=== PATIENT | male | born 1975 | race Caucasian/White ===

== ENCOUNTER 2018-04-30 17:19 | Inpatient (IN) ==
[2018-04-30] MEDS ORDERED: ASPIRIN PO ONE (18:30)
[2018-04-30] MEDS ORDERED: NS 1000 ML 1,000 ML ONE (18:30)
--- NOTE | 2018-04-30 18:35 | DR.URIAD ---
HPI - Time Seen Time seen: 18:30 - PCP Primary Care Physician: NFD - Complaint Chief Complaint Doctors Comments: Patient is complaining of SOB, cold, cough, dry mouth and problems swallowing for the past 7 days. Patient states he has been drinking a lot of water and seems not to be able to get full. States he has been having problems with tightness in the center of his chest for the past 2-4 days getting progressively worst today. states he do not have a local doctor. He smokes one pack cigarettes daily but denies alcohol usage. States he smoke marijuania last time week ago. Denies history of diabetes. He denies dysuria or hematuria. Chief Complaint:: " LEN BEEN HAVING SOB OF BREATH AND CHEST HURTS FOR THE LAST 2 DAYS. I HAVE A C/C/C LAST WEEK AND TOOK A Z PACK BUT NOW IT JUST SEEMS WORST EVERY TIME I TAKE IN A DEEP BREATH IT HURTS AND I HAVENT BEEN ABLE TO EAT THE LAST FEW DAYS." - Reviewed Nurses Notes Reviewed: Yes - Source History Provided: Patient - Mode of Arrival Mode of Arrival: Ambulatory - Timing Onset of Chief Complaint: 04/28/18 - Context Recent Treated Infections: None History of Respiratory: None - Quality Quality of Cough: Nonproductive Rhinorrhea: Clear Shortness of Breath: Mild - Associated Signs and Symptoms Other Signs and Symptoms: Cough, Decreased Oral Intake, Decreased Urination, Increased Oral Intake, Nasal Symptoms, Shortness of Breath PMH - PMH Past Medical History: No Past Surgical History: Yes Surgical History: Ortho Surgery - Family History History of Family Medical Conditions: Yes Family Medical History: Cancer, Heart Failure - Social History Alcohol Use: None Do you use any recreational Drugs:: No Lives Where: Home - infectious screening Have you traveled outside the country in the last 6 months?: No ROS - Review of Systems Constitutional: No Symptoms Reported, Loss of Appetite Eyes: No Symptoms Reported ENTM: No Symptoms Reported, Nose Congestion Respiratoy: No Symptoms Reported, Non-Productive Cough Cardiovascular: No Symptoms Reported Gastrointestinal/Abdominal: No Symptoms Reported Genitourinary: No Symptoms Reported Neurological: No Symptoms Reported Musculoskeletal: No Symptoms Reported Integumentary: No Symptoms Reported Hematologic/Lymphatic: No Symptoms Reported Endocrine: No Symptoms Reported Psychiatric: No Symptoms Reported PE - General Limitations: No Limitations General Appearance: Alert, In Distress (moderate) - Head Head Exam: Normal Inspection, Atraumatic, Normocephalic - Eyes Eye exam: Normal Appearance, PERRL, EOMI. negative: Scleral Icterus, Conjunctival Injection, Nystagmus, Miosis, Mydrasis, Periorbital Swelling, Periorbital Tenderness, Other - ENT ENT Exam: Normal Exam, Normal Oropharynx, Normal External Ear Exam, Mucous Membranes Moist, TM's Normal Bilaterally External Ear Exam: Normal External Inspection TM/Canal Exam: Bilateral Normal Nose Exam: Normal Nose Exam Nasal Speculum Exam: Bilateral Normal Mouth Exam: Normal Inspection Throat Exam: Normal Inspection - Neck Neck Exam: Normal Inspection, Full ROM, Trachea Midline. negative: Tenderness, Meningismus, Lymphadenopathy, Thyromegaly, Other - Chest Chest Inspection: Normal Inspection, Symmetric Chest Wall Rise - Respiratory Respiratory Exam: Normal Lung Sounds Bilat Respiratory Exam: Bilateral Clear to Auscultation - Cardiovascular Cardiovascular Exam: Regular Rate, Normal Rhythm, Normal Heart Sounds - Abdominal Exam Abdominal Exam: Normal Inspection, Normal Bowel Sounds, Soft. negative: Distention, Tenderness, Guarding, Rebound, Rigidity, Dimnished Bowel Sounds, Hyperactive Bowel Sounds, Hypoactive Bowel Sounds, Organomegaly, Trauma, Incision, Ascites, Mass, Bruit, Pulsatile Mass, Hernia, Other Abdominal Tenderness: negative: RUQ, RLQ, LUQ, LLQ, Epigastrium, Suprapubic, Diffuse, Mild, Moderate, Severe, Other - Extremeties Extremities Exam: Normal Inspection, Full ROM, Normal Capillary Refill. negative: Tenderness, Edema, Joint Swelling, Calf Tenderness, Other - Back Back Exam: Normal Inspection, Full ROM - Neurologic Neurological Exam: Alert, Oriented X3, CN II-XII Intact, Reflexes Normal. negative: Normal Gait (gait not tested) - Psychiatric Psychiatric Exam: Normal Affect, Normal Mood - Skin Skin Exam: Warm, Dry, Intact, Normal Color (decreased skin turgor; ketotic breath) - Vital Signs Vitals: Temperature 97.4 F Pulse Rate [Apical] 108 Pulse Rate 80 Respiratory Rate 22 Blood Pressure [Left Arm] 121/93 Blood Pressure 145/99 O2 Sat by Pulse Oximetry 99 Course - Reevaluation 1st: Improved - Consultation Called: 08:14 Call Returned: 08:14 (Dr. Cordero to admit) - Education/Counseling Education/Counseling: Patient, Family Educated On: Treatment, Diagnosis, Needs for Follow Up ROR - Labs Reviewed Laboratory Results Reviewed?: Yes (All labs and x-ray results reviewed and discussed with patient) Result Diagrams: 05/01/18 05:33 05/01/18 05:33 - Labs Reviewed Laboratory: WBC 11.2 X10^3/uL (3.6-10.0) H 04/30/18 18:37 RBC 5.50 X10^6/uL (4.7-6.0) 04/30/18 18:37 Hgb 16.2 g/dL (13.5-18.0) 04/30/18 18:37 Hct 48.3 % (42.0-54.0) 04/30/18 18:37 MCV 87.8 fL (80.0-100.0) 04/30/18 18:37 MCH 29.4 pg (27.0-34.0) 04/30/18 18:37 MCHC 33.5 g/dL (33.0-35.0) 04/30/18 18:37 RDW 13.7 % (11.6-16.5) 04/30/18 18:37 Plt Count 377 X10^3/uL (150.0-450.0) 04/30/18 18:37 MPV 9.5 fL (7.4-11.0) 04/30/18 18:37 Neut % (Auto) 75.9 % (42.0-75.0) H 04/30/18 18:37 Lymph % (Auto) 15.1 % (21.0-51.0) L 04/30/18 18:37 [place] % (Auto) 6.9 % (0.0-13.0) 04/30/18 18:37 Eos % (Auto) 0.7 % (0.9-2.9) L 04/30/18 18:37 Baso % (Auto) 1.4 % (0.2-1.0) H 04/30/18 18:37 Neut # (Auto) 8.5 x10^3/uL (2.2-4.8) H 04/30/18 18:37 Lymph # (Auto) 1.7 X10^3/uL (1.3-2.9) 04/30/18 18:37 [place] # (Auto) 0.8 x10^3/uL (0.3-0.8) 04/30/18 18:37 Eos # (Auto) 0.1 x10^3/uL (0.0-0.2) 04/30/18 18:37 Baso # (Auto) 0.2 X10^3/uL (0.0-0.1) H 04/30/18 18:37 Absolute Nucleated RBC 0.0 /100WBC 04/30/18 18:37 INR Target Range - 04/30/18 18:37 INR 1.05 (0.8-1.3) 04/30/18 18:37 APTT 24.8 SECONDS (22.9-36.5) 04/30/18 18:37 PTT Comment - 04/30/18 18:37 D-Dimer 462 ng/mL (0-400) H* 04/30/18 18:37 Sample Site Rbra 04/30/18 21:21 ABG pH 7.310 (7.35-7.45) L 04/30/18 21:21 ABG pCO2 27.0 mmHg (35.0-45.0) L 04/30/18 21:21 ABG pO2 91.0 mmHg (80.0-100.0) 04/30/18 21:21 ABG HCO3 13.6 mmol/L (22-26) L* 04/30/18 21:21 ABG O2 Saturation 96.0 % (90-100) 04/30/18 21:21 ABG Base Excess -11.1 mmol/L (-2.0-2.0) L 04/30/18 21:21 Freddy Test Na 04/30/18 21:21 A-a Gradient 25.0 mmHg 04/30/18 21:21 FiO2 21.0 04/30/18 21:21 Blood Gas Comments Norma abg well-mtf 04/30/18 21:21 Sodium 133 mmol/L (136-145) L 04/30/18 18:37 Corrected Sodium 142 mmol/L (136-145) 04/30/18 18:37 Potassium 5.0 mmol/L (3.5-5.1) 04/30/18 18:37 Chloride 95 mmol/L (98-107) L 04/30/18 18:37 Carbon Dioxide 17.7 mmol/L (21-32) L 04/30/18 18:37 BUN 15 mg/dL (7-18) 04/30/18 18:37 Creatinine 1.48 mg/dL (0.70-1.30) H 04/30/18 18:37 Est GFR (MDRD) Af Amer > 60 (>60) 04/30/18 18:37 Est GFR (MDRD) Non-Af 56 (>60) L 04/30/18 18:37 Glucose 471 mg/dL (65-99) H 04/30/18 18:37 POC Glucose (mg/dL) 408 mg/dL (65-99) H* 04/30/18 22:03 Calcium 10.6 mg/dL (8.5-10.1) H 04/30/18 18:37 Corrected Calcium TNP 04/30/18 18:37 Magnesium 1.8 mg/dL (1.7-2.9) 04/30/18 18:37 Total Bilirubin 0.60 mg/dL (0.2-1.0) 04/30/18 18:37 AST 13 Units/L (15-37) L 04/30/18 18:37 ALT 38 Units/L (12-78) 04/30/18 18:37 Alkaline Phosphatase 153 Units/L (46-116) H 04/30/18 18:37 Creatine Kinase 73 Units/L (39-308) 04/30/18 18:37 CK-MB (CK-2) 1.0 ng/mL (0-4.0) 04/30/18 18:37 CK/CKMB % Calc 1.4 % (<4) 04/30/18 18:37 Troponin I < 0.02 ng/mL (0-1.5) 04/30/18 18:37 Total Protein 8.6 g/dL (6.4-8.2) H 04/30/18 18:37 Albumin 3.9 g/dL (3.4-5.0) 04/30/18 18:37 Globulin 4.7 g/dL (2.5-4.5) H 04/30/18 18:37 Albumin/Globulin Ratio 0.8 Ratio (1.1-2.1) L 04/30/18 18:37 Specimen Type Clean catch urine 04/30/18 18:50 Urine Color Pale yellow (YELLOW) 04/30/18 18:50 Urine Appearance Clear (CLEAR) 04/30/18 18:50 Urine pH 5.0 (5.0 - 8.0) 04/30/18 18:50 Ur Specific [place] 1.020 (1.000-1.030) 04/30/18 18:50 Urine Protein 2+ (NEGATIVE) 04/30/18 18:50 Urine Glucose (UA) 4+ (NEGATIVE) 04/30/18 18:50 Urine Ketones 4+ (NEGATIVE) 04/30/18 18:50 Urine Occult Blood 1+ (NEGATIVE) 04/30/18 18:50 Urine Nitrite Negative (NEGATIVE) 04/30/18 18:50 Urine Bilirubin Negative (NEGATIVE) 04/30/18 18:50 Urine Acetone Large (NEGATIVE) 04/30/18 18:50 Urine Urobilinogen Normal (NORMAL) 04/30/18 18:50 Ur Leukocyte Esterase Negative (NEGATIVE) 04/30/18 18:50 Urine RBC 3-5 /HPF (NONE SEEN) 04/30/18 18:50 Urine WBC 0-2 /HPF (NONE SEEN) 04/30/18 18:50 Ur Squamous Epith Cells Negative /HPF (NEGATIVE) 04/30/18 18:50 Urine Bacteria Negative /HPF (NEGATIVE) 04/30/18 18:50 Ur Culture Indicated? No/not indicated 04/30/18 18:50 - Diagnosis Discharge Problem: Diabetes mellitus, new onset, Metabolic acidosis due to diabetes mellitus, Dehydration, Chest pain - Discharge Plan Disposition: ADMITTED INPATIENT Condition: Stable
[2018-04-30] MEDS ORDERED: ASPIRIN ONE (18:42)
[2018-04-30 18:52] LABS: BASOPHILS # (AUTO) 0.2 X10^3/uL (0.0-0.1); BASOPHILS % (AUTO) 1.4 % (0.2-1.0); EOSINOPHILS # (AUTO) 0.1 x10^3/uL (0.0-0.2); EOSINOPHILS % (AUTO) 0.7 % (0.9-2.9); HEMATOCRIT 48.3 % (42.0-54.0); HEMOGLOBIN 16.2 g/dL (13.5-18.0); LYMPHOCYTES # (AUTO) 1.7 X10^3/uL (1.3-2.9); LYMPHOCYTES % (AUTO) 15.1 % (21.0-51.0); MEAN CORPUSCULAR HEMOGLOBIN 29.4 pg (27.0-34.0); MEAN CORPUSCULAR HGB CONC 33.5 g/dL (33.0-35.0); MEAN CORPUSCULAR VOLUME 87.8 fL (80.0-100.0); MEAN PLATELET VOLUME 9.5 fL (7.4-11.0); MONOCYTES # (AUTO) 0.8 x10^3/uL (0.3-0.8); MONOCYTES % (AUTO) 6.9 % (0.0-13.0); NEUTROPHILS # (AUTO) 8.5 x10^3/uL (2.2-4.8); NEUTROPHILS % (AUTO) 75.9 % (42.0-75.0); PLATELET COUNT 377 X10^3/uL (150.0-450.0); RED CELL DISTRIBUTION WIDTH 13.7 % (11.6-16.5); WHITE BLOOD COUNT 11.2 X10^3/uL (3.6-10.0)
--- NOTE | 2018-04-30 18:57 | RAD ---
Examination: Portable AP chest History: SOB Comparison reference: None Findings: Normal heart size with no evidence for acute pulmonary, mediastinal, hilar or pleural lesion. Impression: No active chest abnormality demonstrated. Reported By:
[2018-04-30] MEDS ORDERED: NS 1000 ML 1,000 ML IV SCH (19:00)
[2018-04-30 19:09] LABS: BLOOD UREA NITROGEN 15 mg/dL (7-18); CALCIUM 10.6 mg/dL (8.5-10.1); CARBON DIOXIDE 17.7 mmol/L (21-32); CHLORIDE 95 mmol/L (98-107); COR NA(FOR HYPERGLY) 142 mmol/L (136-145); CREATININE 1.48 mg/dL (0.70-1.30); SODIUM 133 mmol/L (136-145); TROPONIN I < 0.02 ng/mL (0-1.5); eGFR NON BLACK RACES 56 (>60)
[2018-04-30 19:13] LABS: ALANINE AMINOTRANSFERASE 38 Units/L (12-78); ALBUMIN 3.9 g/dL (3.4-5.0); ALKALINE PHOSPHATASE 153 Units/L (46-116); ASPARTATE AMINO TRANSFERASE 13 Units/L (15-37); CKMB % 1.4 % (<4); CREATINE KINASE 73 Units/L (39-308); MAGNESIUM 1.8 mg/dL (1.7-2.9); TOTAL PROTEIN 8.6 g/dL (6.4-8.2)
[2018-04-30 19:26] LABS: BILIRUBIN,URINE NEGATIVE (NEGATIVE); BLOOD/HEMOGLOBIN,URINE 1+ (NEGATIVE); GLUCOSE, URINE 4+ (NEGATIVE); KETONES,URINE 4+ (NEGATIVE); LEUKOCYTE ESTERASE ,URINE NEGATIVE (NEGATIVE); NITRITES,URINE NEGATIVE (NEGATIVE); PROTEIN,URINE 2+ (NEGATIVE); UROBILINOGEN,URINE NORMAL (NORMAL)
[2018-04-30 19:30] LABS: APPEARANCE,URINE CLEAR (CLEAR); COLOR,URINE PALE YELLOW (YELLOW)
[2018-04-30 19:44] LABS: BACTERIA,URINE NEGATIVE /HPF (NEGATIVE); SQUAMOUS EPITHELIAL CELL,UR NEGATIVE /HPF (NEGATIVE)
--- NOTE | 2018-04-30 20:41 | CT ---
CT ANGIOGRAPHY OF THE CHEST CLINICAL HISTORY: 42-year-old male with shortness of breath and chest pain for 2 days. COMPARISON: Chest radiograph this date. TECHNIQUE: CT angiogram of the chest was performed following the uncomplicated administration of 75 mL Omnipaque 350 intravenous contrast as per routine pulmonary embolus protocol. Coronal and Sagittal reformats provided. MIP reformats are submitted for review. FINDINGS: No pulmonary embolus is seen. There is no thoracic aortic dissection. The heart is normal in size and there is no pericardial effusion. Shotty nonspecific lymph nodes throughout the mediastinum. No axillary lymphadenopathy. Significant bullous emphysematous change throughout the upper lobes superimposed upon scattered paraseptal and centrilobular emphysematous change. No mass, nodule or consolidation. The trachea and mainstem bronchi are patent. There is no pleural effusion or pneumothorax. Imaged upper abdomen without acute abnormality. The arteriovascular structures are within normal limits. Soft tissues are normal. The osseous structures are intact without fracture or malalignment. IMPRESSION: 1. No pulmonary embolus. 2. Significant bullous, paraseptal and centrilobular emphysematous change of the lungs as described. Reported By:
[2018-04-30 21:23] LABS: ABG BASE EXCESS -11.1 mmol/L (-2.0-2.0)
[2018-04-30 21:24] LABS: ABG HCO3 13.6 mmol/L (22-26)
[2018-04-30] MEDS ORDERED: NS 1000 ML 1,000 ML IV ONE (21:55)
[2018-04-30] MEDS ORDERED: HumuLIN R IV STA (22:06)
[2018-04-30] MEDS ORDERED: HumuLIN R ONE (22:15)
[2018-04-30] MEDS ORDERED: HumuLIN R SUBCUT PRN (22:52)
[2018-04-30] MEDS: NS 1000 ML 1,000 ML IV SCH (23:57)
[2018-05-01 01:17] LABS: CKMB % 1.4 % (<4); CREATINE KINASE 74 Units/L (39-308); TROPONIN I < 0.02 ng/mL (0-1.5)
[2018-05-01] MEDS: HumuLIN R SC PRN ×4 (05:34→21:22)
[2018-05-01 05:54] LABS: BASOPHILS % (AUTO) 0.3 % (0.2-1.0); EOSINOPHILS # (AUTO) 0.4 x10^3/uL (0.0-0.2); EOSINOPHILS % (AUTO) 4.4 % (0.9-2.9); HEMATOCRIT 41.7 % (42.0-54.0); HEMOGLOBIN 14.1 g/dL (13.5-18.0); MEAN CORPUSCULAR HEMOGLOBIN 29.2 pg (27.0-34.0); MEAN CORPUSCULAR HGB CONC 33.9 g/dL (33.0-35.0); MEAN CORPUSCULAR VOLUME 86.1 fL (80.0-100.0); MEAN PLATELET VOLUME 9.3 fL (7.4-11.0); MONOCYTES # (AUTO) 0.7 x10^3/uL (0.3-0.8); MONOCYTES % (AUTO) 7.2 % (0.0-13.0); NEUTROPHILS # (AUTO) 6.2 x10^3/uL (2.2-4.8); NEUTROPHILS % (AUTO) 67.1 % (42.0-75.0); PLATELET COUNT 309 X10^3/uL (150.0-450.0); RED BLOOD COUNT 4.84 X10^6/uL (4.7-6.0); RED CELL DISTRIBUTION WIDTH 13.6 % (11.6-16.5); WHITE BLOOD COUNT 9.3 X10^3/uL (3.6-10.0)
[2018-05-01 06:07] LABS: ALANINE AMINOTRANSFERASE 29 Units/L (12-78); ALKALINE PHOSPHATASE 113 Units/L (46-116); ASPARTATE AMINO TRANSFERASE 14 Units/L (15-37); BLOOD UREA NITROGEN 12 mg/dL (7-18); CALCIUM 8.7 mg/dL (8.5-10.1); CARBON DIOXIDE 20.8 mmol/L (21-32); CHLORIDE 105 mmol/L (98-107); COR CA(FOR HYPOALB) 9.5 mg/dL (8.5-10.1); COR NA(FOR HYPERGLY) 141 mmol/L (136-145); CREATININE 0.99 mg/dL (0.70-1.30); SODIUM 139 mmol/L (136-145); TOTAL PROTEIN 6.8 g/dL (6.4-8.2); eGFR NON BLACK RACES > 60 (>60)
[2018-05-01] MEDS ORDERED: KLOR-CON PO PRN (06:21)
[2018-05-01] MEDS ORDERED: POTASSIUM CHL 40 MEQ/NS 0.45% 500 ML IV PRN (06:21)
[2018-05-01] MEDS ORDERED: K-RIDER 10 MEQ/NS 100 ML 10 MEQ/100 ML BAG IV PRN (06:21)
[2018-05-01] MEDS ORDERED: POTASSIUM CHLORIDE LIQ 20 MEQ UDC PO PRN (06:21)
[2018-05-01] MEDS ORDERED: POTASSIUM CHL 60 MEQ/NS 0.45% 500 ML IV PRN (06:21)
[2018-05-01] MEDS ORDERED: MICRO K EXTEN CAP 10 MEQ PO PRN (06:21)
[2018-05-01] MEDS: NS 1000 ML 1,000 ML IV SCH ×5 (06:32→23:32)
[2018-05-01] MEDS: K-DUR TAB 20 MEQ PO PRN (06:52)
[2018-05-01] MEDS: MAGNESIUM SULFATE 1 GRAM/100 mL PREMIX 1 GM/100 ML BAG IV PRN ×2 (06:52→08:20)
[2018-05-01 07:01] LABS: CKMB % 1.7 % (<4); CREATINE KINASE 88 Units/L (39-308); CREATINE KINASE MB 1.5 ng/mL (0-4.0); TROPONIN I < 0.02 ng/mL (0-1.5)
[2018-05-01 07:11] VITALS: BMI 17.3
[2018-05-01] MEDS: MILK OF MAGNESIA PO SCH ×2 (08:21→20:03)
[2018-05-01] MEDS ORDERED: GLUCOPHAGE ONE ×2 (10:52→16:34)
[2018-05-01] MEDS: GLUCOPHAGE PO SCH ×2 (11:28→16:35)
[2018-05-01 12:49] LABS: CREATINE KINASE 79 Units/L (39-308); CREATINE KINASE MB 1.6 ng/mL (0-4.0); TROPONIN I < 0.02 ng/mL (0-1.5)
[2018-05-01] MEDS ORDERED: SNACK - Diabetic Appropriate PO SCH (20:00)
[2018-05-01] MEDS ORDERED: COLACE CAP 100 MG PO SCH (21:00)
--- NOTE | 2018-05-01 21:15 | DR.H&P ---
H&P - History & Physical for Day of: H&P Date: 04/30/18 - Chief Complaint Chief Complaint: SOB, CHEST PAIN, C/C/C - History of Present Illness History of Present Illness: IS A 42 YEAR OLD WHITE MALE WHO PRESENTED TO THE ER WITH COMPLAITNS OF SHORTNESS OF BREATH, CHEST PAIN, AND C/C/C. HE REPORTS THAT SYMPTOMS STARTED TWO DAYS AGO AND HAVE PROGRESSIVELY GOTTEN WORSE. HE ALSO REPORTS DRY MOUTH AND PROBLEMS SWALLOWING. HE REPORTS SMOKING ONE PACK OF CIGARETTES/DAY AND RECREATIONAL USE OF MARIJUANIA. ON ARRIVAL, VITALS WERE 97.4-75-18-100%-146/93. LABS WERE OBTAINED. ABNORMAL LAB VALUES INCLUDE THE FOLLOWING: WBC 11.2, D-DIMER 462, SODIUM 133, CHLORIDE 95, CARBON DIOXIDE 17.7, CREATININE 1.48, GLUCOSE 471, CALCIUM 10.6, AST 13, ALK PHOS 153, TOTAL PROTEIN 8.6, GLOBULIN 4.7. CARDIAC ENZYMES WITHIN NORMAL LIMITS. ABG OBTAINED AND REVEALED: PH 7.310, PC02 27.0, P02 91.0, HC03 13.6, 02 SATURATION 96.0, BASE EXCESS -11.1. URINALYSIS REVEALED 4+ GLUCOSE, 4+ KETONES, ACETONES LARGE. EKG OBTAINED AND REVEALED: SINUS RHYTHM WITH HR 77. CHEST XRAY OBTAINED AND REVEALED NO ACUTE ABNORMALITY. A CHEST CT WAS OBTAINED AND REVEALED: No pulmonary embolus. Significant bullous, paraseptal and centrilobular emphysematous change of the lungs as described. HE DENIES A HISTORY OF DIABETES. HE WAS GIVEN A NORMAL SALINE BOLUS, HUMULIN R 10 UNITS, AND ASA 325MG PO X 1 IN THE ER. HE WAS ADMITTED FOR FURTHER EVALUATION AND TREATMENT OF NEW ONSET DIABETES, METABOLIC ACIDOSIS, CHEST PAIN, AND EMPHYSEMA. HE WAS STARTED ON NORMAL SALINE AT 125ML/HR AND HUMULIN R SLIDING SCALE. WE PLAN TO OBTAIN SERIAL CARDIAC ENZYMES AND EKGS. OTHERWISE, WE WILL FOLLOW UP WITH AM LABS AND OCNTINUE TO MONITOR. - Past Surgical History Surgical History: Ortho Surgery - Family History Family Medical History: Cancer, Heart Failure - Social History Does patient currently use any type of tobacco product: Yes Have you used tobacco products in the last 12 months: Yes Type of Tobacco Use: Cigarettes How many years tobacco product used: 30 Alcohol Use: None Drug Use: Marijuana - Medications Home Medications: penicillin G Allergy (Verified 04/30/18 17:44) CONTINUE taking the following medications NK 05/01/18 [History] - Review of Systems Constitutional: See HPI, Weakness Eyes: No Symptoms Reported ENT: No Symptoms Reported, Nose Congestion Respiratory: See HPI, Cough, Shortness of Breath, SOB with Excertion Cardiovascular: Chest Pain Gastrointestinal: No Symptoms Reported Genitourinary: Retention Musculoskeletal: No Symptoms Reported Skin: No Symptoms Reported Neurological: No Symptoms Reported - Physical Exam Vital Signs: Temperature 98.6 F Pulse Rate [Apical] 73 Pulse Rate 80 Respiratory Rate 18 Blood Pressure [Right Arm] 112/65 Blood Pressure [Left Arm] 145/99 Blood Pressure 145/99 O2 Sat by Pulse Oximetry 99 Oriented: Normal Eyes: Normal Ear: Normal Nose: Normal Throat: Normal Respiratory: Diminished Throughout Cardiovascular: Normal. negative: S3, S4, Murmur : Normal Auscultation: Bowel Sounds: Normal Palpation: Normal Tenderness: Normal Skin: Decreased Turgur Musculoskeletal: Normal Psychiatric: Normal Mood Description: Calm Affect: Normal Speech Pattern: Clear - Assessment/Plan (1) Diabetes mellitus, new onset Status: Acute Plan: HUMULIN R SLIDING SCALE, MONITOR OTBS, NORMAL SALINE AT 125ML/HR, CONTINUE TO MONITOR (2) Metabolic acidosis due to diabetes mellitus Status: Acute Plan: HUMULIN R SLIDING SCALE, MONITOR OTBS, NORMAL SALINE AT 125ML/HR, CONTINUE TO MONITOR (3) Dehydration Status: Acute Plan: NORMAL SALINE AT 125ML/HR, CONTINUE TO MONITOR (4) Chest pain Qualifiers: Chest pain type: unspecified Qualified Code(s): R07.9 - Chest pain, unspecified Status: Acute Plan: SERIAL CARDIAC ENZYMES AND EKG, CONTINUE TO MONITOR - Allergies Allergies/Adverse Reactions: Allergies Allergy/AdvReac Type Severity Reaction Status Date / Time penicillin G Allergy Verified 04/30/18 17:44
[2018-05-02] MEDS: NS 1000 ML 1,000 ML IV SCH (02:32)
[2018-05-02 05:26] LABS: BASOPHILS # (AUTO) 0.1 X10^3/uL (0.0-0.1); EOSINOPHILS # (AUTO) 0.4 x10^3/uL (0.0-0.2); EOSINOPHILS % (AUTO) 4.7 % (0.9-2.9); HEMOGLOBIN 12.4 g/dL (13.5-18.0); LYMPHOCYTES # (AUTO) 1.3 X10^3/uL (1.3-2.9); LYMPHOCYTES % (AUTO) 15.2 % (21.0-51.0); MEAN CORPUSCULAR HEMOGLOBIN 29.3 pg (27.0-34.0); MEAN CORPUSCULAR HGB CONC 33.6 g/dL (33.0-35.0); MEAN CORPUSCULAR VOLUME 87.2 fL (80.0-100.0); MEAN PLATELET VOLUME 9.5 fL (7.4-11.0); MONOCYTES # (AUTO) 0.5 x10^3/uL (0.3-0.8); NEUTROPHILS # (AUTO) 6.4 x10^3/uL (2.2-4.8); NEUTROPHILS % (AUTO) 73.1 % (42.0-75.0); PLATELET COUNT 304 X10^3/uL (150.0-450.0); RED BLOOD COUNT 4.25 X10^6/uL (4.7-6.0); RED CELL DISTRIBUTION WIDTH 13.6 % (11.6-16.5); WHITE BLOOD COUNT 8.7 X10^3/uL (3.6-10.0)
[2018-05-02 05:41] LABS: ALANINE AMINOTRANSFERASE 23 Units/L (12-78); ALBUMIN 2.5 g/dL (3.4-5.0); ALKALINE PHOSPHATASE 87 Units/L (46-116); ASPARTATE AMINO TRANSFERASE 16 Units/L (15-37); BLOOD UREA NITROGEN 7 mg/dL (7-18); CALCIUM 7.8 mg/dL (8.5-10.1); CHLORIDE 105 mmol/L (98-107); COR NA(FOR HYPERGLY) 140 mmol/L (136-145); CREATININE 0.89 mg/dL (0.70-1.30); MAGNESIUM 1.6 mg/dL (1.7-2.9); SODIUM 139 mmol/L (136-145); TOTAL PROTEIN 5.6 g/dL (6.4-8.2); eGFR NON BLACK RACES > 60 (>60)
[2018-05-02] MEDS ORDERED: GLUCOPHAGE ONE (05:43)
[2018-05-02] MEDS: GLUCOPHAGE PO SCH (06:03)
[2018-05-02] MEDS: MAGNESIUM SULFATE 1 GRAM/100 mL PREMIX 1 GM/100 ML BAG IV PRN ×2 (06:10→08:30)
[2018-05-02] MEDS: K-DUR TAB 20 MEQ PO PRN (06:10)
[2018-05-02] MEDS: MILK OF MAGNESIA PO SCH (11:37)
[2018-05-02] MEDS: HumuLIN R SC PRN (11:53)
[2018-05-02 13:19] VITALS: BP 120/71
== END 2018-05-02 13:10 | disposition home or self-care (01) | DRG 637 ==
LOC: ER 17:35 → MED/SURG 22:50
PROVIDERS: ADMIT Internal Medicine; ATTEND Internal Medicine
DX: J86.9 Pyothorax without fistula; E86.0 Dehydration; R13.11 Dysphagia, oral phase; R07.89 Other chest pain; E87.2 Acidosis; R94.31 Abnormal electrocardiogram [ECG] [EKG]; Z72.0 Tobacco use; R06.02 Shortness of breath; E11.65 Type 2 diabetes mellitus with hyperglycemia
CPT/HCPCS: 36415; 36600; 71010; 71045; 71275; 80053; 81001; 82009; 82550; 82553; 82803; 82947; 83036; 83735; 84132; 84484; 85025; 85378; 85610; 85730; 93005; 94760; 96365; 96367; 96372; 96374; 99284; A4216; A4222; J1815; J3475; J7030

== ENCOUNTER 2020-09-21 10:09 | Observation (INO) ==
[2020-09-21] MEDS ORDERED: NS 1000 ML 1,000 ML IV ONE (10:25)
--- NOTE | 2020-09-21 10:26 | DR.GENAD ---
HPI Time Seen Time Seen by Provider: 09/21/20 10:16 HPI Comment HPI Comment: 44 y/o male presents with being ill over the past several days. Developed pain, swelling of R scrotum, has been spontaneously draining over the past several days. + frequent nausea, vomiting over the past 3 days. Hasn't eate n food, having increasing weakness. Has been running chills, subjective fevers. Having mild central abdominal pain. Worse with vomiting, better with rest. Does not radiate. Is a diabetic x 4 years, takes 70/30 daily, but not with recent illness. Complaint/Symptoms Chief Complaint Doctors Comments: Vomiting, draining scrotum wound COVID-19 Coronavirus risk:travel/contact w/high risk person: No Has patient experienced Coronavirus symptoms: No Coronavirus symptoms experienced: Fever Nurses notes reviewed Nurses Notes Review: Yes Source History Provided: Patient and EMS Mode of Arrival Mode of Arrival: EMS Timing Onset of Chief Complaint: 09/18/20 Came on: Gradually Duration Duration: Constant Duration: Days Severity Severity: Moderate Modifying Factors Worsens:: nothing Improves:: nothing Associated Signs and Symptoms Associated Signs and Symptoms: Nausea, vomiting, weakness, dizziness PMH PMH Past Surgical History: Yes Surgical History: Ortho Surgery Family History Family Medical History: Cancer and Heart Failure Social History Do you use any recreational Drugs:: No ROS Review of Systems Constitutional: Diaphoresis, Weakness and Loss of Appetite Eyes: No Symptoms Reported ENTM: No Symptoms Reported Respiratoy: No Symptoms Reported Cardiovascular: No Symptoms Reported Gastrointestinal/Abdominal: See HPI, Abdominal Pain, Nausea and Vomiting Genitourinary: No Symptoms Reported Neurological: Weakness and Dizziness Musculoskeletal: No Symptoms Reported Integumentary: No Symptoms Reported Psychiatric: No Symptoms Reported PE Vital Signs Vitals: Temperature 98.1 F Pulse Rate 85 Respiratory Rate 17 Blood Pressure [Right Arm] 120/71 Blood Pressure 132/82 O2 Sat by Pulse Oximetry 99 General Limitations: No Limitations General Appearance: Alert and Cachectic Head Head Exam: Normal Inspection Eyes Eye exam: Normal Appearance ENT ENT Exam: Normal Exam and Mucous Membranes Moist Nose Exam: Normal Nose Exam Mouth Exam: Normal Inspection Throat Exam: Normal Inspection Neck Neck Exam: Normal Inspection Chest Chest Inspection: Normal Inspection Respiratory Respiratory Exam: Normal Lung Sounds Bilat Respiratory Exam: Bilateral: Clear to Auscultation Cardiovascular Cardiovascular Exam: Regular Rate, Normal Rhythm and Normal Heart Sounds Abdominal Exam Abdominal Exam: Normal Inspection, Normal Bowel Sounds and Soft Abdominal Tenderness: Other (none) Extremities Extremities Exam: Normal Inspection Neurologic Neurological Exam: Alert and Oriented X3 Psychiatric Psychiatric Exam: Anxious Skin Skin Exam: Warm and Other (shallow ulcerated wound, 1 cm, of right scrotum, + surrounding tenderness, no erythena or induration) MDM Differential Diagnosis Differential Diagnosis: vomiting, dehydration ,DKA, scrotal abscess, Christiano' gangrene COURSE Treatment Treatment: Pt was given IV fluids, IV zofran by EMS. Attempted to take clear fluids here, vomited. Additional IV fluids, IV zofran given. Reevaluation 1st: Improved (somewhat better, heart rate down. Reviewed labs with the pt. Has an elevated WBC, 16.9, as well as LA, 3.5) 2nd: Unchanged (Given IV doxycycline. Wound culture obtained from scrotum. Heriberto nning to admit.) Consultation Called: 11:44 Call Returned: 11:48 Consultation Comments: Call put out to Dr. Garcia. Discussed the pt with him, agrees for admission. Will add vancomycin to the doxycycline. ROR Labs Reviewed Result Diagrams: 09/21/20 10:52 09/21/20 10:52 Laboratory: WBC 16.9 X10^3/uL (3.6-10.0) H 09/21/20 10:52 RBC 5.51 X10^6/uL (4.7-6.0) 09/21/20 10:52 Hgb 16.3 g/dL (13.5-18.0) 09/21/20 10:52 Hct 49.4 % (42.0-54.0) 09/21/20 10:52 MCV 89.7 fL (80.0-100.0) 09/21/20 10:52 MCH 29.6 pg (27.0-34.0) 09/21/20 10:52 MCHC 33.0 g/dL (33.0-35.0) 09/21/20 10:52 RDW 14.9 % (11.6-16.5) 09/21/20 10:52 Plt Count 367 X10^3/uL (150.0-450.0) 09/21/20 10:52 MPV 9.1 fL (7.4-11.0) 09/21/20 10:52 Neut % (Auto) 88.7 % (42.0-75.0) H 09/21/20 10:52 Lymph % (Auto) 5.8 % (21.0-51.0) L 09/21/20 10:52 [place] % (Auto) 5.3 % (0.0-13.0) 09/21/20 10:52 Eos % (Auto) 0.1 % (0.9-2.9) L 09/21/20 10:52 Baso % (Auto) 0.1 % (0.2-1.0) L 09/21/20 10:52 Neut # (Auto) 15.0 x10^3/uL (2.2-4.8) H 09/21/20 10:52 Lymph # (Auto) 1.0 X10^3/uL (1.3-2.9) L 09/21/20 10:52 [place] # (Auto) 0.9 x10^3/uL (0.3-0.8) H 09/21/20 10:52 Eos # (Auto) 0.0 x10^3/uL (0.0-0.2) 09/21/20 10:52 Baso # (Auto) 0.0 X10^3/uL (0.0-0.1) 09/21/20 10:52 Absolute Nucleated RBC 0.0 /100WBC 09/21/20 10:52 Sodium 137 mmol/L (136-145) 09/21/20 10:52 Corrected Sodium 145 mmol/L (136-145) 09/21/20 10:52 Potassium 5.5 mmol/L (3.5-5.1) H 09/21/20 10:52 Chloride 101 mmol/L (98-107) 09/21/20 10:52 Carbon Dioxide 21.7 mmol/L (21-32) 09/21/20 10:52 BUN 36 mg/dL (7-18) H 09/21/20 10:52 Creatinine 1.82 mg/dL (0.70-1.30) H 09/21/20 10:52 Est GFR (MDRD) Af Amer 53 (>60) L 09/21/20 10:52 Est GFR (MDRD) Non-Af 43 (>60) L 09/21/20 10:52 Glucose 435 mg/dL (65-99) H 09/21/20 10:52 Lactic Acid 3.5 mmol/L (0.4-2.0) H 09/21/20 10:52 Calcium 9.3 mg/dL (8.5-10.1) 09/21/20 10:52 Corrected Calcium TNP 09/21/20 10:52 Total Bilirubin 0.30 mg/dL (0.2-1.0) 09/21/20 10:52 AST 11 Units/L (15-37) L 09/21/20 10:52 ALT 17 Units/L (12-78) 09/21/20 10:52 Alkaline Phosphatase 167 Units/L (46-116) H 09/21/20 10:52 Total Protein 8.9 g/dL (6.4-8.2) H 09/21/20 10:52 Albumin 3.4 g/dL (3.4-5.0) 09/21/20 10:52 Globulin 5.5 g/dL (2.5-4.5) H 09/21/20 10:52 Albumin/Globulin Ratio 0.6 Ratio (1.1-2.1) L 09/21/20 10:52 Lipase 38 Units/L (73-393) L 09/21/20 10:52 Specimen Type Clean catch urine 09/21/20 12:12 Urine Color Straw (YELLOW) 09/21/20 12:12 Urine Appearance Clear (CLEAR) 09/21/20 12:12 Urine pH 5.0 (5.0 - 8.0) 09/21/20 12:12 Ur Specific [place] 1.015 (1.000-1.030) 09/21/20 12:12 Urine Protein 3+ (NEGATIVE) 09/21/20 12:12 Urine Glucose (UA) 4+ (NEGATIVE) 09/21/20 12:12 Urine Ketones 3+ (NEGATIVE) 09/21/20 12:12 Urine Occult Blood 5+ (NEGATIVE) 09/21/20 12:12 Urine Nitrite Positive (NEGATIVE) 09/21/20 12:12 Urine Bilirubin Negative (NEGATIVE) 09/21/20 12:12 Urine Urobilinogen Normal (NORMAL) 09/21/20 12:12 Ur Leukocyte Esterase Negative (NEGATIVE) 09/21/20 12:12 Urine RBC 5-10 /HPF (0-3) A 09/21/20 12:12 Urine WBC 10-20 /HPF (0-5) A 09/21/20 12:12 Ur Squamous Epith Cells Rare /HPF (NEGATIVE) 09/21/20 12:12 Urine Bacteria 2+ /HPF (NEGATIVE) 09/21/20 12:12 Hyaline Casts Rare /LPF (NEGATIVE) 09/21/20 12:12 Ur Culture Indicated? Yes/culture set up 09/21/20 12:12 Acetone, Semi-Quant Small (NEGATIVE) H 09/21/20 10:52 Opioid Opioid Risk Tool Total: 0 Total Score Risk Category: Low Risk Copyright: Antonio GAMBLE predicting aberrant behaviors Diagnosis Discharge Problem: Vomiting, Scrotal wall abscess
[2020-09-21] MEDS ORDERED: ZOFRAN INJ 4 MG VIAL IVP ONE (10:28)
[2020-09-21] MEDS ORDERED: ZOFRAN INJ 4 MG VIAL ONE (11:02)
[2020-09-21] MEDS ORDERED: NS 1000 ML 1,000 ML ONE (11:03)
[2020-09-21 11:11] LABS: BASOPHILS % (AUTO) 0.1 % (0.2-1.0); EOSINOPHILS % (AUTO) 0.1 % (0.9-2.9); HEMATOCRIT 49.4 % (42.0-54.0); HEMOGLOBIN 16.3 g/dL (13.5-18.0); LYMPHOCYTES % (AUTO) 5.8 % (21.0-51.0); MEAN CORPUSCULAR HEMOGLOBIN 29.6 pg (27.0-34.0); MEAN CORPUSCULAR VOLUME 89.7 fL (80.0-100.0); MEAN PLATELET VOLUME 9.1 fL (7.4-11.0); MONOCYTES # (AUTO) 0.9 x10^3/uL (0.3-0.8); MONOCYTES % (AUTO) 5.3 % (0.0-13.0); NEUTROPHILS % (AUTO) 88.7 % (42.0-75.0); PLATELET COUNT 367 X10^3/uL (150.0-450.0); RED BLOOD COUNT 5.51 X10^6/uL (4.7-6.0); RED CELL DISTRIBUTION WIDTH 14.9 % (11.6-16.5); WHITE BLOOD COUNT 16.9 X10^3/uL (3.6-10.0)
[2020-09-21 11:19] LABS: ALANINE AMINOTRANSFERASE 17 Units/L (12-78); ALBUMIN 3.4 g/dL (3.4-5.0); ALKALINE PHOSPHATASE 167 Units/L (46-116); ASPARTATE AMINO TRANSFERASE 11 Units/L (15-37); BLOOD UREA NITROGEN 36 mg/dL (7-18); CALCIUM 9.3 mg/dL (8.5-10.1); CARBON DIOXIDE 21.7 mmol/L (21-32); CHLORIDE 101 mmol/L (98-107); COR NA(FOR HYPERGLY) 145 mmol/L (136-145); CREATININE 1.82 mg/dL (0.70-1.30); LIPASE 38 Units/L (73-393); SODIUM 137 mmol/L (136-145); TOTAL PROTEIN 8.9 g/dL (6.4-8.2); eGFR NON BLACK RACES 43 (>60)
--- NOTE | 2020-09-21 11:22 | RAD ---
CHEST, 1 VIEWHistory: PT STATES HIS BLOOD SUGAR HAS BEEN >500 FOR SEVERAL DAYS AND 2 DAYS AGO HE STARTED VOMITING AND HASN'T BEEN ABLE TO KEEP ANYTHING DOWNComparison: 04/30/2018Findings: Cardiac silhouette is normal in size. Lungs are hyperinflated with coarsened interstitial markings, compatible with COPD. No acute alveolar infiltrate or significant effusion is identified. No pneumothorax.Impression:No acute cardiopulmonary abnormality.COPD.Electronically signed by: DAISHA KNIGHT (Sep 21, 2020 11:19:38)
[2020-09-21 11:24] LABS: LACTIC ACID 3.5 mmol/L (0.4-2.0)
[2020-09-21 11:25] LABS: SERUM ACETONE SMALL (NEGATIVE)
[2020-09-21] MEDS ORDERED: HumuLIN R SUBCUT ONE (11:39)
[2020-09-21] MEDS ORDERED: HumuLIN R ONE (11:55)
[2020-09-21] MEDS: VIBRAMYCIN 100 MG in D5W 250 ML IV 250 ML IV SCH ×2 (12:06→20:32)
[2020-09-21 12:19] LABS: BILIRUBIN,URINE NEGATIVE (NEGATIVE); BLOOD/HEMOGLOBIN,URINE 5+ (NEGATIVE); GLUCOSE, URINE 4+ (NEGATIVE); KETONES,URINE 3+ (NEGATIVE); LEUKOCYTE ESTERASE ,URINE NEGATIVE (NEGATIVE); NITRITES,URINE POSITIVE (NEGATIVE); PROTEIN,URINE 3+ (NEGATIVE); UROBILINOGEN,URINE NORMAL (NORMAL)
[2020-09-21 12:22] LABS: APPEARANCE,URINE CLEAR (CLEAR); COLOR,URINE STRAW (YELLOW)
[2020-09-21 12:38] LABS: BACTERIA,URINE 2+ /HPF (NEGATIVE); HYALINE CASTS, URINE RARE /LPF (NEGATIVE); SQUAMOUS EPITHELIAL CELL,UR RARE /HPF (NEGATIVE)
[2020-09-21] MEDS ORDERED: PHARMACY CONSULT - VANCOMYCIN XX SCH (13:47)
[2020-09-21] MEDS: NS 1000 ML 1,000 ML IV SCH ×2 (14:45→22:57)
[2020-09-21] MEDS: VANCOMYCIN IV *PREMIX 750 mg/150 ML BAG 750 MG/150 ML PIGGYBACK IV SCH (15:50)
[2020-09-21] MEDS: ZOFRAN INJ 4 MG VIAL IVP PRN (18:15)
[2020-09-21] MEDS: HumuLIN R SUBCUT PRN (22:55)
[2020-09-22] MEDS: ZOFRAN INJ 4 MG VIAL IVP PRN (02:38)
[2020-09-22 04:44] LABS: BASOPHILS # (AUTO) 0.1 X10^3/uL (0.0-0.1); BASOPHILS % (AUTO) 0.7 % (0.2-1.0); EOSINOPHILS # (AUTO) 0.1 x10^3/uL (0.0-0.2); EOSINOPHILS % (AUTO) 0.8 % (0.9-2.9); HEMATOCRIT 38.9 % (42.0-54.0); LYMPHOCYTES # (AUTO) 1.8 X10^3/uL (1.3-2.9); LYMPHOCYTES % (AUTO) 13.9 % (21.0-51.0); MEAN CORPUSCULAR HEMOGLOBIN 29.5 pg (27.0-34.0); MEAN PLATELET VOLUME 9.3 fL (7.4-11.0); MONOCYTES # (AUTO) 0.8 x10^3/uL (0.3-0.8); MONOCYTES % (AUTO) 6.4 % (0.0-13.0); NEUTROPHILS # (AUTO) 10.2 x10^3/uL (2.2-4.8); NEUTROPHILS % (AUTO) 78.2 % (42.0-75.0); PLATELET COUNT 286 X10^3/uL (150.0-450.0); RED BLOOD COUNT 4.48 X10^6/uL (4.7-6.0); RED CELL DISTRIBUTION WIDTH 15.2 % (11.6-16.5)
[2020-09-22 04:47] LABS: HEMOGLOBIN 13.2 g/dL (13.5-18.0)
[2020-09-22 04:51] LABS: ALANINE AMINOTRANSFERASE 14 Units/L (12-78); ALBUMIN 2.6 g/dL (3.4-5.0); ALKALINE PHOSPHATASE 120 Units/L (46-116); ASPARTATE AMINO TRANSFERASE 15 Units/L (15-37); BLOOD UREA NITROGEN 17 mg/dL (7-18); CALCIUM 8.4 mg/dL (8.5-10.1); CHLORIDE 104 mmol/L (98-107); COR CA(FOR HYPOALB) 9.5 mg/dL (8.5-10.1); COR NA(FOR HYPERGLY) 145 mmol/L (136-145); CREATININE 1.03 mg/dL (0.70-1.30); SODIUM 139 mmol/L (136-145); TOTAL PROTEIN 6.7 g/dL (6.4-8.2); eGFR NON BLACK RACES > 60 (>60)
[2020-09-22] MEDS: HumuLIN R SUBCUT PRN ×2 (05:58→12:08)
[2020-09-22] MEDS: NS 1000 ML 1,000 ML IV SCH ×5 (06:01→23:09)
[2020-09-22] MEDS: VIBRAMYCIN 100 MG in D5W 250 ML IV 250 ML IV SCH ×2 (08:38→20:53)
[2020-09-22] MEDS ORDERED: PERCOCET TAB 5/325 MG PO PRN (09:14)
[2020-09-22] MEDS ORDERED: MOTRIN TAB 800 MG PO PRN (09:14)
[2020-09-22] MEDS ORDERED: DEMEROL INJ ONE (09:16)
[2020-09-22] MEDS ORDERED: PHENERGAN INJ 25 MG IM ONE (09:17)
[2020-09-22] MEDS: PHENERGAN INJ 25 MG IM PRN ×2 (09:24→21:25)
[2020-09-22] MEDS: DEMEROL INJ IM PRN ×2 (09:25→21:25)
[2020-09-22] MEDS: ACTOS PO SCH (09:57)
[2020-09-22] MEDS: GLUCOPHAGE XR 24-HR PO SCH ×2 (09:58→20:56)
[2020-09-22 13:40] VITALS: BMI 15.5
[2020-09-22] MEDS: VANCOMYCIN IV *PREMIX 750 mg/150 ML BAG 750 MG/150 ML PIGGYBACK IV SCH (14:50)
[2020-09-23 05:44] LABS: BASOPHILS # (AUTO) 0.1 X10^3/uL (0.0-0.1); EOSINOPHILS # (AUTO) 0.3 x10^3/uL (0.0-0.2); EOSINOPHILS % (AUTO) 3.3 % (0.9-2.9); LYMPHOCYTES # (AUTO) 1.9 X10^3/uL (1.3-2.9); LYMPHOCYTES % (AUTO) 19.5 % (21.0-51.0); MEAN CORPUSCULAR HGB CONC 34.4 g/dL (33.0-35.0); MEAN CORPUSCULAR VOLUME 87.4 fL (80.0-100.0); MEAN PLATELET VOLUME 9.1 fL (7.4-11.0); MONOCYTES # (AUTO) 0.7 x10^3/uL (0.3-0.8); MONOCYTES % (AUTO) 7.5 % (0.0-13.0); NEUTROPHILS # (AUTO) 6.9 x10^3/uL (2.2-4.8); NEUTROPHILS % (AUTO) 68.7 % (42.0-75.0); PLATELET COUNT 261 X10^3/uL (150.0-450.0); RED BLOOD COUNT 4.01 X10^6/uL (4.7-6.0)
[2020-09-23 05:50] LABS: ALANINE AMINOTRANSFERASE 15 Units/L (12-78); ALBUMIN 2.5 g/dL (3.4-5.0); ALKALINE PHOSPHATASE 100 Units/L (46-116); ASPARTATE AMINO TRANSFERASE 28 Units/L (15-37); BLOOD UREA NITROGEN 13 mg/dL (7-18); CALCIUM 8.3 mg/dL (8.5-10.1); CARBON DIOXIDE 28.5 mmol/L (21-32); CHLORIDE 106 mmol/L (98-107); COR CA(FOR HYPOALB) 9.5 mg/dL (8.5-10.1); COR NA(FOR HYPERGLY) 144 mmol/L (136-145); CREATININE 0.91 mg/dL (0.70-1.30); SODIUM 141 mmol/L (136-145); eGFR NON BLACK RACES > 60 (>60)
[2020-09-23] MEDS: HumuLIN R SUBCUT PRN ×3 (06:07→12:35)
[2020-09-23] MEDS: NS 1000 ML 1,000 ML IV SCH (06:36)
[2020-09-23] MEDS: VIBRAMYCIN 100 MG in D5W 250 ML IV 250 ML IV SCH ×2 (09:30→20:35)
[2020-09-23] MEDS: GLUCOPHAGE XR 24-HR PO SCH ×2 (09:30→21:48)
[2020-09-23] MEDS: ACTOS PO SCH (09:30)
[2020-09-23] MEDS: INVOKANA PO SCH (11:59)
[2020-09-23] MEDS: LOVENOX INJ 40 MG SYR SC SCH (12:00)
[2020-09-23] MEDS: PHENERGAN INJ 25 MG IM PRN (12:32)
[2020-09-23] MEDS: DEMEROL INJ IM PRN (12:35)
[2020-09-23] MEDS: VANCOMYCIN IV *PREMIX 750 mg/150 ML BAG 750 MG/150 ML PIGGYBACK IV SCH (16:00)
[2020-09-23] MEDS: ZOFRAN INJ 4 MG VIAL IVP PRN (22:25)
[2020-09-24] MEDS: NS 1000 ML 1,000 ML IV SCH ×2 (03:09→05:50)
[2020-09-24 04:55] LABS: BASOPHILS # (AUTO) 0.1 X10^3/uL (0.0-0.1); BASOPHILS % (AUTO) 1.5 % (0.2-1.0); EOSINOPHILS # (AUTO) 0.1 x10^3/uL (0.0-0.2); HEMATOCRIT 34.5 % (42.0-54.0); HEMOGLOBIN 11.6 g/dL (13.5-18.0); LYMPHOCYTES # (AUTO) 1.4 X10^3/uL (1.3-2.9); LYMPHOCYTES % (AUTO) 19.9 % (21.0-51.0); MEAN CORPUSCULAR HEMOGLOBIN 29.5 pg (27.0-34.0); MEAN CORPUSCULAR HGB CONC 33.7 g/dL (33.0-35.0); MEAN CORPUSCULAR VOLUME 87.7 fL (80.0-100.0); MEAN PLATELET VOLUME 8.9 fL (7.4-11.0); MONOCYTES # (AUTO) 0.7 x10^3/uL (0.3-0.8); MONOCYTES % (AUTO) 10.1 % (0.0-13.0); NEUTROPHILS # (AUTO) 4.8 x10^3/uL (2.2-4.8); NEUTROPHILS % (AUTO) 66.5 % (42.0-75.0); PLATELET COUNT 247 X10^3/uL (150.0-450.0); RED BLOOD COUNT 3.94 X10^6/uL (4.7-6.0); RED CELL DISTRIBUTION WIDTH 14.6 % (11.6-16.5); WHITE BLOOD COUNT 7.1 X10^3/uL (3.6-10.0)
[2020-09-24 05:11] LABS: ALANINE AMINOTRANSFERASE 16 Units/L (12-78); ALBUMIN 2.4 g/dL (3.4-5.0); ALKALINE PHOSPHATASE 93 Units/L (46-116); ASPARTATE AMINO TRANSFERASE 35 Units/L (15-37); BLOOD UREA NITROGEN 8 mg/dL (7-18); CALCIUM 8.4 mg/dL (8.5-10.1); CARBON DIOXIDE 26.1 mmol/L (21-32); CHLORIDE 109 mmol/L (98-107); COR CA(FOR HYPOALB) 9.7 mg/dL (8.5-10.1); COR NA(FOR HYPERGLY) 144 mmol/L (136-145); CREATININE 0.93 mg/dL (0.70-1.30); SODIUM 143 mmol/L (136-145); TOTAL PROTEIN 5.8 g/dL (6.4-8.2); eGFR NON BLACK RACES > 60 (>60)
[2020-09-24] MEDS: LOVENOX INJ 40 MG SYR SC SCH (09:35)
[2020-09-24] MEDS: ACTOS PO SCH (09:35)
[2020-09-24] MEDS: INVOKANA PO SCH (09:35)
[2020-09-24] MEDS: VIBRAMYCIN 100 MG in D5W 250 ML IV 250 ML IV SCH (09:36)
[2020-09-24] MEDS: GLUCOPHAGE XR 24-HR PO SCH (09:40)
[2020-09-24 10:19] VITALS: BP 117/60
== END 2020-09-24 11:20 | disposition home or self-care (01) ==
LOC: ER 10:09 → MED/SURG 10:09
PROVIDERS: ADMIT Obstetrics & Gynecology Obstetrics; ATTEND Obstetrics & Gynecology Obstetrics
DX: B96.29 Other Escherichia coli [E. coli] as the cause of diseases classified elsewhere; Z20.822 Contact with and (suspected) exposure to COVID-19; R11.10 Vomiting, unspecified; N39.0 Urinary tract infection, site not specified; E11.65 Type 2 diabetes mellitus with hyperglycemia; N49.2 Inflammatory disorders of scrotum; B95.7 Other staphylococcus as the cause of diseases classified elsewhere; R53.1 Weakness

== ENCOUNTER 2021-07-10 15:15 | Observation (INO) ==
--- NOTE | 2021-07-10 16:09 | DR.DIZZY ---
HPI Time seen Time Seen by Provider: 07/10/21 16:05 PCP Primary Care Physician: YONATHAN STREETER Complaint Chief Complaint Doctor Comments: 45 y/o male ill over the past 10 days. Having nausea, vomiting, weight loss. Having increased weakness. Has a sore throat. Denies fever, chest pain, cough or dyspnea. Having pain across the upper abdomen, can't describe. Does not radiate. Worse with eating, vomiting, palpation. Nothing makes it better. Has a h/o DM, diagnosed 5 years ago. BS 330 today at home. Chief Complaint:: PT TO ER WITH C/O N/V AND WEIGHT LOSS FOR THE LAST 4-5 DAYS PTS MOTHER TRIED TO TAKE HIM TO HIS PCP ( ANGELLA Boyd AND HE WAS NOT ABLE TO GET OUT OF THE CAR SO PT WAS TO COME TO ER FOR EVAL ..BR COVID-19 Coronavirus risk:travel/contact w/high risk person: No Has patient experienced Coronavirus symptoms: No Nurses Notes Reviewed Nurses Notes Review: Yes Source History Provided: Patient Mode of Arrival Mode of Arrival: Wheelchair Timing Onset of Chief Complaint: 07/07/21 Came on: Gradually Context Stroke Symptoms: None PMH PMH Past Medical History: Yes Past Medical History: Diabetes Past Surgical History: Yes Surgical History: Ortho Surgery and Other Family History History of Family Medical Conditions: Yes Family Medical History: Diabetes Mellitus, Cancer, Heart Failure and Hypertension Social History Does patient currently use any type of tobacco product: No Have you used tobacco products in the last 12 months: No Type of Tobacco Use: None Does any household member use tobacco: No Alcohol Use: None Do you use any recreational Drugs:: No Lives With: Family Lives Where: Home Travel Risk Coronavirus risk:travel/contact w/high risk person: No Has patient experienced Coronavirus symptoms: No Infectious screening In the last 2 months have you had wt loss of >10#?: NO Have you had fever, night sweats or hemotysis?: No Have you traveled outside the country in the last 6 months?: No Isolation: Standard ROS Review of Systems Constitutional: Malaise, Weakness, Fatigue and Loss of Appetite Eyes: No Symptoms Reported ENTM: Throat Pain Respiratoy: No Symptoms Reported Cardiovascular: No Symptoms Reported Gastrointestinal/Abdominal: Abdominal Pain, Nausea and Vomiting Genitourinary: No Symptoms Reported Neurological: Weakness and Dizziness Musculoskeletal: No Symptoms Reported Integumentary: No Symptoms Reported Hematologic/Lymphatic: No Symptoms Reported Psychiatric: No Symptoms Reported All Other Systems: Reviewed and Negative PE Vital Signs Vitals: Temperature 97.5 F Pulse Rate 112 Respiratory Rate 24 Blood Pressure [Right Arm] 117/60 Blood Pressure 130/82 O2 Sat by Pulse Oximetry 98 General Limitations: No Limitations General Appearance: Alert and Cachectic Head Head Exam: Normal Inspection, Atraumatic and Normocephalic Eyes Eye exam: PERRL and EOMI ENT ENT Exam: Mucous Membranes Dry and Other (+ erythema of oropharynx) Neck Neck Exam: Normal Inspection and Full ROM; negative Tenderness Chest Chest Inspection: Normal Inspection Respiratory Respiratory Exam: Normal Lung Sounds Bilat; negative Accessory Muscle Use and Respiratory Distress Respiratory Exam: Bilateral: Clear to Auscultation Cardiovascular Cardiovascular Exam: Regular Rate, Normal Rhythm, Tachycardia and Normal Heart Sounds Abdominal Exam Abdominal Exam: Soft and Tenderness (across upper abdomen, no rebound. ) Extremeties Extremities Exam: Normal Inspection Neurologic Neurological Exam: Alert, Oriented X3 and Other (+ generalized weakness); negative Motor Sensory Deficit Psychiatric Psychiatric Exam: Normal Affect Skin Skin Exam: Warm, Dry and Other (poor turgor) MDM Differential Diagnosis Differential Diagnosis: Dehydration and Electrolyte disorder Differential Diagnosis Comment: DKA, pancreatitis, cholecystitis COURSE Treatment Treatment: 45 y/o male with worsening vomiting, weakness over the past 10 days. + DM x past 5 years, on insulin. Glucose not controlled at home. W/u initiated. Given IV fluids, 2 L NS. Glucose 454, given IV regular insulin, 8 U. 191 - not c/w DKA. ABG shows pH to be alkalotic, 7.51. + small acetone in blood, labs otherwise not terrible. Will admit for further IV fluids, vomiting control, will treat with IV protonix/zofran. Pt may need EGD for further evaluation. Discussed with Dr Herman, covering for Dr Louis/Najma. She accepts the admission. ROR Labs Reviewed Laboratory Results Reviewed?: Yes Result Diagrams: 07/10/21 15:42 07/10/21 15:42 Laboratory: WBC 7.9 X10^3/uL (3.6-10.0) 07/10/21 15:42 RBC 4.83 X10^6/uL (4.7-6.0) 07/10/21 15:42 Hgb 12.9 g/dL (13.5-18.0) L 07/10/21 15:42 Hct 39.2 % (42.0-54.0) L 07/10/21 15:42 MCV 81.3 fL (80.0-100.0) 07/10/21 15:42 MCH 26.8 pg (27.0-34.0) L 07/10/21 15:42 MCHC 32.9 g/dL (33.0-35.0) L 07/10/21 15:42 RDW 14.9 % (11.6-16.5) 07/10/21 15:42 Plt Count 368 X10^3/uL (150.0-450.0) 07/10/21 15:42 MPV 8.8 fL (7.4-11.0) 07/10/21 15:42 Neut % (Auto) 73.1 % (42.0-75.0) 07/10/21 15:42 Lymph % (Auto) 16.4 % (21.0-51.0) L 07/10/21 15:42 Meade % (Auto) 7.7 % (0.0-13.0) 07/10/21 15:42 Eos % (Auto) 1.6 % (0.9-2.9) 07/10/21 15:42 Baso % (Auto) 1.2 % (0.2-1.0) H 07/10/21 15:42 Neut # (Auto) 5.8 x10^3/uL (2.2-4.8) H 07/10/21 15:42 Lymph # (Auto) 1.3 X10^3/uL (1.3-2.9) 07/10/21 15:42 Meade # (Auto) 0.6 x10^3/uL (0.3-0.8) 07/10/21 15:42 Eos # (Auto) 0.1 x10^3/uL (0.0-0.2) 07/10/21 15:42 Baso # (Auto) 0.1 X10^3/uL (0.0-0.1) 07/10/21 15:42 Absolute Nucleated RBC 0.1 /100WBC 07/10/21 15:42 Sample Site Rra 07/10/21 16:40 ABG pH 7.510 (7.35-7.45) H 07/10/21 16:40 ABG pCO2 34.0 mmHg (35.0-45.0) L 07/10/21 16:40 ABG pO2 93.0 mmHg (80.0-100.0) 07/10/21 16:40 ABG HCO3 27.1 mmol/L (22-26) H 07/10/21 16:40 ABG O2 Saturation 98.0 % (90-100) 07/10/21 16:40 ABG Base Excess 4.2 mmol/L (-2.0-2.0) H 07/10/21 16:40 Freddy Test Pos 07/10/21 16:40 A-a Gradient 14.0 mmHg 07/10/21 16:40 FiO2 21.0 07/10/21 16:40 Blood Gas Comments Pt ronny well eb 07/10/21 16:40 Sodium 132 mmol/L (136-145) L 07/10/21 15:42 Corrected Sodium 140 mmol/L (136-145) 07/10/21 15:42 Potassium 3.7 mmol/L (3.5-5.1) 07/10/21 15:42 Chloride 96 mmol/L (98-107) L 07/10/21 15:42 Carbon Dioxide 26.7 mmol/L (21-32) 07/10/21 15:42 BUN 19 mg/dL (7-18) H 07/10/21 15:42 Creatinine 1.14 mg/dL (0.70-1.30) 07/10/21 15:42 Est GFR (MDRD) Af Amer > 60 (>60) 07/10/21 15:42 Est GFR (MDRD) Non-Af > 60 (>60) 07/10/21 15:42 Glucose 454 mg/dL (65-99) H 07/10/21 15:42 Lactic Acid 2.0 mmol/L (0.4-2.0) 07/10/21 15:42 Calcium 9.6 mg/dL (8.5-10.1) 07/10/21 15:42 Corrected Calcium 10.4 mg/dL (8.5-10.1) H 07/10/21 15:42 Total Bilirubin 0.30 mg/dL (0.2-1.0) 07/10/21 15:42 AST 8 Units/L (15-37) L 07/10/21 15:42 ALT 7 Units/L (12-78) L 07/10/21 15:42 Alkaline Phosphatase 155 Units/L (46-116) H 07/10/21 15:42 Creatine Kinase 19 Units/L (39-308) L 07/10/21 15:42 CK-MB (CK-2) < 1.0 ng/mL (0-4.0) 07/10/21 15:42 CK/CKMB % Calc 5.3 % (<4) 07/10/21 15:42 Troponin I High Sens 5.2 ng/L (4.0-60.0) 07/10/21 15:42 Total Protein 8.5 g/dL (6.4-8.2) H 07/10/21 15:42 Albumin 3.0 g/dL (3.4-5.0) L 07/10/21 15:42 Globulin 5.5 g/dL (2.5-4.5) H 07/10/21 15:42 Albumin/Globulin Ratio 0.5 Ratio (1.1-2.1) L 07/10/21 15:42 Lipase 33 Units/L (73-393) L 07/10/21 15:42 Acetone, Semi-Quant Small (NEGATIVE) H 07/10/21 15:42 SARS-CoV-2 (PCR) Negative (NEGATIVE) 07/10/21 17:52 S. pyogenes (TEM-PCR) Not detected (NOT DETECT) 07/10/21 16:30 XRAY XRAY Interpreted by: Self X-ray Results: CXR no acute abnormalities, + COPD changes. Opioid Opioid Risk Tool Age (Jose box if 16-45): Yes History of Preadolescent Sexual Abuse: No Total: 1 Total Score Risk Category: Low Risk Copyright: Antonio GAMBLE predicting aberrant behaviors Diagnosis Discharge Problem: Poorly controlled diabetes mellitus Vomiting Qualifiers: Vomiting type: unspecified Nausea presence: with nausea Qualified Code(s): R11.2 - Nausea with vomiting, unspecified
[2021-07-10] MEDS ORDERED: NS 1,000 ML IV 1,000 ML IV ONE ×2 (16:13→18:57)
[2021-07-10] MEDS ORDERED: NS 1,000 ML IV 1,000 ML ONE ×2 (16:24→19:49)
[2021-07-10 16:29] LABS: BASOPHILS # (AUTO) 0.1 X10^3/uL (0.0-0.1); BASOPHILS % (AUTO) 1.2 % (0.2-1.0); EOSINOPHILS # (AUTO) 0.1 x10^3/uL (0.0-0.2); EOSINOPHILS % (AUTO) 1.6 % (0.9-2.9); HEMATOCRIT 39.2 % (42.0-54.0); HEMOGLOBIN 12.9 g/dL (13.5-18.0); LYMPHOCYTES # (AUTO) 1.3 X10^3/uL (1.3-2.9); LYMPHOCYTES % (AUTO) 16.4 % (21.0-51.0); MEAN CORPUSCULAR HEMOGLOBIN 26.8 pg (27.0-34.0); MEAN CORPUSCULAR HGB CONC 32.9 g/dL (33.0-35.0); MEAN CORPUSCULAR VOLUME 81.3 fL (80.0-100.0); MEAN PLATELET VOLUME 8.8 fL (7.4-11.0); MONOCYTES # (AUTO) 0.6 x10^3/uL (0.3-0.8); MONOCYTES % (AUTO) 7.7 % (0.0-13.0); NEUTROPHILS # (AUTO) 5.8 x10^3/uL (2.2-4.8); NEUTROPHILS % (AUTO) 73.1 % (42.0-75.0); RED BLOOD COUNT 4.83 X10^6/uL (4.7-6.0); RED CELL DISTRIBUTION WIDTH 14.9 % (11.6-16.5); WHITE BLOOD COUNT 7.9 X10^3/uL (3.6-10.0)
[2021-07-10 16:42] LABS: ABG BASE EXCESS 4.2 mmol/L (-2.0-2.0); ABG HCO3 27.1 mmol/L (22-26)
[2021-07-10 16:44] LABS: ABG ALLEN TEST POS
[2021-07-10 17:03] LABS: ALANINE AMINOTRANSFERASE 7 Units/L (12-78); ALKALINE PHOSPHATASE 155 Units/L (46-116); ASPARTATE AMINO TRANSFERASE 8 Units/L (15-37); BLOOD UREA NITROGEN 19 mg/dL (7-18); CALCIUM 9.6 mg/dL (8.5-10.1); CARBON DIOXIDE 26.7 mmol/L (21-32); CHLORIDE 96 mmol/L (98-107); CKMB % 5.3 % (<4); COR CA(FOR HYPOALB) 10.4 mg/dL (8.5-10.1); COR NA(FOR HYPERGLY) 140 mmol/L (136-145); CREATINE KINASE 19 Units/L (39-308); CREATINE KINASE MB < 1.0 ng/mL (0-4.0); CREATININE 1.14 mg/dL (0.70-1.30); LIPASE 33 Units/L (73-393); SODIUM 132 mmol/L (136-145); TOTAL PROTEIN 8.5 g/dL (6.4-8.2); eGFR NON BLACK RACES > 60 (>60)
[2021-07-10 17:19] LABS: SERUM ACETONE SMALL (NEGATIVE)
--- NOTE | 2021-07-10 17:43 | RAD ---
HISTORYC/O N/V AND WEIGHT LOSS FOR THE LAST 4-5 DAYS PTS MOTHER TRIED TO TAKE HIM TO HIS PCP ( ANGELLA BoydP AND HE WAS NOT ABLE TO GET OUT OF THE CAR SO PT WAS TO COME TO ER FOR EVAL Relevant Clinical InformationSTUDYCHEST, 1 VIEWCOMPARISONChest x-ray dated September 21, 2020.FINDINGSThe trachea is midline. The cardiac silhouette is unremarkable. The lungs are clear without focal infiltrate, pneumothorax, or effusion. The bony thorax is unremarkable.IMPRESSIONNo acute cardiopulmonary findings .Electronically signed by: KYLEE DOMINGUEZ (Jul 10, 2021 17:42:45)
[2021-07-10] MEDS ORDERED: NovoLIN R (or HumuLIN R) IV ONE (18:04)
[2021-07-10] MEDS ORDERED: NovoLIN R (or HumuLIN R) ONE (18:10)
[2021-07-10] MEDS ORDERED: NS 100 ML IV 100 ML ONE (18:14)
--- NOTE | 2021-07-10 18:48 | CT ---
EXAM: CT ABDOMEN AND PELVIS WITH INTRAVENOUS CONTRASTHISTORY: Nausea and vomiting x4 to 5 days.TECHNIQUE: Spiral axial CT images are obtained through the abdomen and pelvis without the administration of oral contrast and with the administration of intravenous contrast. Additional coronal and sagittal reformatted images are reconstructed.DOSIMETRY: Total DLP 378.4 mGycm; CTDI 32.4 mGyCOMPARISON: None available.FINDINGS:GASTROINTESTINAL TRACT: There is no evidence for bowel herniation, bowel obstruction, colitis or diverticulitis. A normal-appearing appendix is seen.GENITOURINARY SYSTEM: The kidneys are unremarkable. There is no ureteral calculus or stigmata of obstructive uropathy. The urinary bladder, seminal vesicles, prostate gland appear grossly unremarkable for a non-dedicated exam.CT ABDOMEN: The liver, spleen, pancreas, adrenal glands, gallbladder, aorta, and inferior vena cava are within normal limits for a CT scan. There is no intra-abdominal or retroperitoneal lymphadenopathy, free fluid, or free air seen. No abdominal herniation is noted.CT PELVIS: No pelvic sidewall or inguinal lymphadenopathy is seen. No inguinal herniation is noted. No free fluid or free air is seen.BONES AND JOINTS: The visualized bony structures are within normal limits.LUNG BASES: The lung bases are clear.IMPRESSION:1. No gross acute abnormality seen.2. No evidence for pyelonephritis, renal stone disease or obstructive uropathy.3. No evidence for acute appendicitis, bowel herniation/obstruction, colitis or diverticulitis seen.4. No free fluid, free air, mass lesions, or lymphadenopathy seen.Electronically signed by: Simone Gomez (Jul 10, 2021 18:47:43)
[2021-07-10 19:58] LABS: BILIRUBIN,URINE NEGATIVE (NEGATIVE); BLOOD/HEMOGLOBIN,URINE 1+ (NEGATIVE); GLUCOSE, URINE 4+ (NEGATIVE); KETONES,URINE 2+ (NEGATIVE); LEUKOCYTE ESTERASE ,URINE NEGATIVE (NEGATIVE); NITRITES,URINE POSITIVE (NEGATIVE); PROTEIN,URINE 2+ (NEGATIVE); UROBILINOGEN,URINE NORMAL (NORMAL)
[2021-07-10] MEDS ORDERED: PROTONIX INJ 40 MG VIAL IVP ONE (20:15)
[2021-07-10 20:27] LABS: APPEARANCE,URINE SLIGHTLY HAZY (CLEAR); COLOR,URINE YELLOW (YELLOW)
[2021-07-10 20:28] LABS: BACTERIA,URINE 2+ /HPF (NEGATIVE); RBC,URINE 0-2 /HPF (0-3); SQUAMOUS EPITHELIAL CELL,UR NEGATIVE /HPF (NEGATIVE)
[2021-07-10 21:04] VITALS: BMI 15.5
[2021-07-10] MEDS: NS 1,000 ML IV 1,000 ML IV SCH (21:07)
[2021-07-10] MEDS: CYMBALTA PO SCH (21:07)
[2021-07-10] MEDS: SNACK - Diabetic Appropriate PO SCH (21:07)
[2021-07-10] MEDS: NovoLIN R (or HumuLIN R) SC PRN (21:08)
[2021-07-10] MEDS: ULTRAM PO PRN (21:10)
[2021-07-10] MEDS: ZOFRAN INJ 4 MG VIAL IVP PRN (23:39)
[2021-07-11 04:44] LABS: BASOPHILS # (AUTO) 0.1 X10^3/uL (0.0-0.1); BASOPHILS % (AUTO) 1.2 % (0.2-1.0); EOSINOPHILS # (AUTO) 0.4 x10^3/uL (0.0-0.2); EOSINOPHILS % (AUTO) 4.8 % (0.9-2.9); HEMATOCRIT 32.2 % (42.0-54.0); LYMPHOCYTES # (AUTO) 1.5 X10^3/uL (1.3-2.9); LYMPHOCYTES % (AUTO) 19.5 % (21.0-51.0); MEAN CORPUSCULAR HEMOGLOBIN 26.5 pg (27.0-34.0); MEAN CORPUSCULAR HGB CONC 33.1 g/dL (33.0-35.0); MEAN CORPUSCULAR VOLUME 80.3 fL (80.0-100.0); MEAN PLATELET VOLUME 9.1 fL (7.4-11.0); MONOCYTES # (AUTO) 0.5 x10^3/uL (0.3-0.8); MONOCYTES % (AUTO) 6.7 % (0.0-13.0); NEUTROPHILS # (AUTO) 5.2 x10^3/uL (2.2-4.8); NEUTROPHILS % (AUTO) 67.8 % (42.0-75.0); RED CELL DISTRIBUTION WIDTH 14.5 % (11.6-16.5); WHITE BLOOD COUNT 7.7 X10^3/uL (3.6-10.0)
[2021-07-11 04:53] LABS: ALANINE AMINOTRANSFERASE 6 Units/L (12-78); ALBUMIN 2.4 g/dL (3.4-5.0); ALKALINE PHOSPHATASE 119 Units/L (46-116); ASPARTATE AMINO TRANSFERASE 7 Units/L (15-37); BLOOD UREA NITROGEN 16 mg/dL (7-18); CALCIUM 8.6 mg/dL (8.5-10.1); CHLORIDE 106 mmol/L (98-107); COR CA(FOR HYPOALB) 9.9 mg/dL (8.5-10.1); CREATININE 0.78 mg/dL (0.70-1.30); HEMOGLOBIN 10.6 g/dL (13.5-18.0); SODIUM 141 mmol/L (136-145); TOTAL PROTEIN 6.7 g/dL (6.4-8.2); eGFR NON BLACK RACES > 60 (>60)
[2021-07-11] MEDS ORDERED: POTASSIUM CHL 40 MEQ/NS 0.45% 500 ML IV PRN (05:13)
[2021-07-11] MEDS ORDERED: POTASSIUM CHL 60 MEQ/NS 0.45% 500 ML IV PRN (05:13)
[2021-07-11] MEDS ORDERED: KLOR-CON PO PRN (05:13)
[2021-07-11] MEDS ORDERED: POTASSIUM CHLORIDE LIQ 20 MEQ UDC PO PRN (05:13)
[2021-07-11] MEDS ORDERED: MICRO K EXTEN CAP 10 MEQ PO PRN (05:13)
[2021-07-11] MEDS: NS 1,000 ML IV 1,000 ML IV SCH ×4 (05:14→20:26)
[2021-07-11] MEDS: K-DUR TAB 20 MEQ PO PRN (05:41)
[2021-07-11] MEDS: MAGNESIUM SULFATE 1 GRAM/100 mL PREMIX 1 G/100 ML BAG IV PRN ×4 (05:41→10:30)
[2021-07-11] MEDS: CYMBALTA PO SCH ×2 (08:32→20:28)
[2021-07-11] MEDS ORDERED: PROTONIX INJ 40 MG VIAL IVP SCH (09:00)
[2021-07-11] MEDS: NovoLIN R (or HumuLIN R) SC PRN ×2 (12:20→15:49)
[2021-07-11] MEDS: ZOFRAN INJ 4 MG VIAL IVP PRN (12:27)
--- NOTE | 2021-07-11 12:34 | DR.H&P ---
H&P - History & Physical for Day of: H&P Date: 07/10/21 - Chief Complaint Chief Complaint: N/V, WEAK, "HURTS ALL OVER" FEVER, HIGH BLOOD SUGAR - History of Present Illness History of Present Illness: PT IS 45 WM ER ADMISSION AFTER BEING SENT TO ER FROM PCP DUE DECREASED RESPOSIVEMENT, SUSPECTED DKA. PT IS KNOWN TYPE I DIABETIC AND RA AND HYPERTENSION. PT WAS RECENTLY STARTED ON PLAQUEN[place] PER DR RENEE. PT FAMILY STATES HE HAS NOT BEEN ABLE TO EAT OR DRINK DUE TO VOMITING. PT CO PAIN ALL OVER, FEVER 102 IN OFFICE AND DIFFUSE LETHARGY. PT ADMITTED FOR TREATMENT OF ACUTE ILLNESS - Past Medical History Past Medical History: Anxiety, Arthritis, Diabetes, GERD, Hypertension Additional Medical History: RA - Past Surgical History Surgical History: Ortho Surgery, Other - Family History Family Medical History: Diabetes Mellitus, Hypertension - Social History Does patient currently use any type of tobacco product: Yes Have you used tobacco products in the last 12 months: Yes Type of Tobacco Use: Cigarettes Does any household member use tobacco: No Alcohol Use: None Drug Use: None - Medications Home Medications: penicillin G Allergy (Verified 07/10/21 16:33) CONTINUE taking the following medications duloxetine [Cymbalta] 30 mg PO BID 07/10/21 [History] ergocalciferol (vitamin D2) [Vitamin D2] 1,250 mcg PO DAILY 07/10/21 [History] folic acid 1 mg PO BID 07/10/21 [History] hydroxychloroquine [Plaquenil] 200 mg PO DAILY 07/10/21 [History] insulin NPH and regular human [Novolin 70-30 FlexPen U-100] 40 unit SUBCUT BID 07/10/21 [History] ketorolac [Toradol] 10 mg PO BID 07/10/21 [History] methotrexate (PF) 0.6 mg SUBCUT WEEKLY 07/10/21 [History] - Review of Systems Constitutional: Fever, Chills, Weakness, Malaise Eyes: No Symptoms Reported ENT: No Symptoms Reported Respiratory: SOB with Excertion Cardiovascular: Palpitations Gastrointestinal: Nausea, Vomiting, Abdominal Pain Genitourinary: No Symptoms Reported Musculoskeletal: Arm Pain, Back Pain, Leg Pain, Neck Pain Skin: Rash Neurological: Weakness - Physical Exam Vital Signs: Temperature 97.8 F Pulse Rate 65 Respiratory Rate 32 Blood Pressure [Right Arm] 120/78 Blood Pressure 102/60 O2 Sat by Pulse Oximetry 98 Oriented: Person Eyes: Normal Ear: Normal Nose: Normal Throat: Normal Respiratory: RLL Diminished, LLL Diminished Cardiovascular: Tachycardia : Normal Auscultation: Bowel Sounds: Normal Palpation: Normal Tenderness: Diffuse, Epigastric Skin: Decreased Turgur Musculoskeletal: Back:Thoracic, Back:Lumbar Psychiatric: Anxiety Affect: Anxious Speech Pattern: Clear, Appropriate - Assessment/Plan (1) Hyponatremia Status: Acute Plan: ADMIT, GENTLE IV HYDRATION. CARDIAC MONITORING, BS CONTROL. STRICT I&OS. IV ATBX, PAIN CONTROL (2) Fever Status: Acute (3) Hyperglycemia Status: Acute (4) Nausea & vomiting Status: Acute (5) Rheumatoid aortitis Status: Acute (6) Dehydration Status: Acute - Allergies Allergies/Adverse Reactions: Allergies Allergy/AdvReac Type Severity Reaction Status Date / Time penicillin G Allergy Verified 07/10/21 16:33
[2021-07-11] MEDS: ROCEPHIN VIAL 1 GRAM 1 G in NS 100 ML IV 100 ML IV SCH (18:23)
[2021-07-11] MEDS: SNACK - Diabetic Appropriate PO SCH (20:26)
[2021-07-11] MEDS: PROTONIX INJ 40 MG VIAL IVP SCH (20:32)
[2021-07-12] MEDS: ZOFRAN INJ 4 MG VIAL IVP PRN ×2 (01:32→08:54)
[2021-07-12] MEDS: NS 1,000 ML IV 1,000 ML IV SCH ×4 (01:32→20:31)
[2021-07-12 05:22] LABS: BASOPHILS # (AUTO) 0.1 X10^3/uL (0.0-0.1); BASOPHILS % (AUTO) 1.4 % (0.2-1.0); EOSINOPHILS # (AUTO) 0.4 x10^3/uL (0.0-0.2); EOSINOPHILS % (AUTO) 5.5 % (0.9-2.9); HEMATOCRIT 27.2 % (42.0-54.0); LYMPHOCYTES # (AUTO) 1.4 X10^3/uL (1.3-2.9); MEAN CORPUSCULAR HEMOGLOBIN 26.8 pg (27.0-34.0); MEAN CORPUSCULAR HGB CONC 33.2 g/dL (33.0-35.0); MEAN CORPUSCULAR VOLUME 80.6 fL (80.0-100.0); MEAN PLATELET VOLUME 9.1 fL (7.4-11.0); MONOCYTES # (AUTO) 0.4 x10^3/uL (0.3-0.8); MONOCYTES % (AUTO) 5.6 % (0.0-13.0); NEUTROPHILS % (AUTO) 68.5 % (42.0-75.0); RED BLOOD COUNT 3.37 X10^6/uL (4.7-6.0); RED CELL DISTRIBUTION WIDTH 14.4 % (11.6-16.5); WHITE BLOOD COUNT 7.3 X10^3/uL (3.6-10.0)
[2021-07-12 05:31] LABS: SERUM ACETONE SMALL (NEGATIVE)
[2021-07-12 05:33] LABS: ALANINE AMINOTRANSFERASE < 6 Units/L (12-78); ALBUMIN 2.1 g/dL (3.4-5.0); ALKALINE PHOSPHATASE 105 Units/L (46-116); ASPARTATE AMINO TRANSFERASE 10 Units/L (15-37); BLOOD UREA NITROGEN 9 mg/dL (7-18); CARBON DIOXIDE 24.6 mmol/L (21-32); CHLORIDE 103 mmol/L (98-107); COR CA(FOR HYPOALB) 9.5 mg/dL (8.5-10.1); COR NA(FOR HYPERGLY) 139 mmol/L (136-145); CREATININE 0.69 mg/dL (0.70-1.30); MAGNESIUM 1.3 mg/dL (1.7-2.9); SODIUM 136 mmol/L (136-145); TOTAL PROTEIN 5.9 g/dL (6.4-8.2); eGFR NON BLACK RACES > 60 (>60)
[2021-07-12] MEDS: MAGNESIUM SULFATE 1 GRAM/100 mL PREMIX 1 G/100 ML BAG IV PRN ×4 (05:48→14:37)
[2021-07-12] MEDS: NovoLIN R (or HumuLIN R) SC PRN ×2 (05:49→12:09)
[2021-07-12] MEDS: ROCEPHIN VIAL 1 GRAM 1 G in NS 100 ML IV 100 ML IV SCH (08:45)
[2021-07-12] MEDS: PROTONIX INJ 40 MG VIAL IVP SCH ×2 (08:55→20:31)
[2021-07-12] MEDS: CYMBALTA PO SCH ×2 (08:55→20:31)
--- NOTE | 2021-07-12 11:52 | PCM.PROG ---
Progress Note - Progress Note for Day of Date of Exam: 07/11/21 - Subjective Subjective: Patient is a 45 year old male who was admitted as per HPI. Patient continues to report nausea. Denies further vomiting. Also reports mild abdominal tenderness. No other concerns at present. Patient tolerating clear liquids; blood sugar monitoring and SS coverage. - Past Medical Family Social History Past Med/Fam/Surg Hx: No changes since H&P Allergies: Allergies penicillin G Allergy (Verified 07/10/21 16:33) - Review of Systems ROS: No change since H&P - Vital Signs and I&O's Vital Signs: Temperature 97.7 F Pulse Rate 84 Respiratory Rate 15 Blood Pressure [Right Arm] 120/78 Blood Pressure 124/72 O2 Sat by Pulse Oximetry 100 Intake and Output: Intake & Output 07/09/21 07/10/21 07/11/21 07/12/21 23:59 23:59 23:59 23:59 Intake Total 1086 / 1086 3719 / 3719 1088 / 1088 Output Total 1100 / 1100 350 / 350 Balance 1086 / 1086 2619 / 2619 738 / 738 - Physical Exam Oriented: Normal, Person Eyes: Normal Ear: Normal Nose: Normal Throat: Normal Respiratory: Normal Cardiovascular: Tachycardia : Normal Auscultation: Bowel Sounds: Normal Palpation: Normal Tenderness: Diffuse, Epigastric, Mild Skin: Decreased Turgur Musculoskeletal: Back:Thoracic, Back:Lumbar Psychiatric: Anxiety Affect: Anxious Speech Pattern: Clear, Appropriate - Laboratory and Diagnostics Result Diagrams: 07/12/21 04:27 07/12/21 04:27 Labs: 07/10/21 19:50 Urine,Clean Catch Urine Culture - Final Escherichia Coli Laboratory WBC 7.3 X10^3/uL (3.6-10.0) 07/12/21 04:27 RBC 3.37 X10^6/uL (4.7-6.0) L 07/12/21 04:27 Hgb 9.0 g/dL (13.5-18.0) L 07/12/21 04:27 Hct 27.2 % (42.0-54.0) L 07/12/21 04:27 MCV 80.6 fL (80.0-100.0) 07/12/21 04:27 MCH 26.8 pg (27.0-34.0) L 07/12/21 04: MCHC 33.2 g/dL (33.0-35.0) 07/12/21 04: RDW 14.4 % (11.6-16.5) 07/12/21 04: Plt Count 265 X10^3/uL (150.0-450.0) 07/12/21 04: MPV 9.1 fL (7.4-11.0) 07/12/21 04:27 Neut % (Auto) 68.5 % (42.0-75.0) 07/12/21 04: Lymph % (Auto) 19.0 % (21.0-51.0) L 07/12/21 04:27 Reynolds % (Auto) 5.6 % (0.0-13.0) 07/12/21 04: Eos % (Auto) 5.5 % (0.9-2.9) H 07/12/21 04: Baso % (Auto) 1.4 % (0.2-1.0) H 07/12/21 04:27 Neut # (Auto) 5.0 x10^3/uL (2.2-4.8) H 07/12/21 04:27 Lymph # (Auto) 1.4 X10^3/uL (1.3-2.9) 07/12/21 04:27 Reynolds # (Auto) 0.4 x10^3/uL (0.3-0.8) 07/12/21 04:27 Eos # (Auto) 0.4 x10^3/uL (0.0-0.2) H 07/12/21 04:27 Baso # (Auto) 0.1 X10^3/uL (0.0-0.1) 07/12/21 04: Absolute Nucleated RBC 0.0 /100WBC 07/12/21 04:27 Sample Site Rra 07/10/21 16:40 ABG pH 7.510 (7.35-7.45) H 07/10/21 16:40 ABG pCO2 34.0 mmHg (35.0-45.0) L 07/10/21 16:40 ABG pO2 93.0 mmHg (80.0-100.0) 07/10/21 16:40 ABG HCO3 27.1 mmol/L (22-26) H 07/10/21 16:40 ABG O2 Saturation 98.0 % (90-100) 07/10/21 16:40 ABG Base Excess 4.2 mmol/L (-2.0-2.0) H 07/10/21 16:40 Freddy Test Pos 07/10/21 16:40 A-a Gradient 14.0 mmHg 07/10/21 16:40 FiO2 21.0 07/10/21 16:40 Blood Gas Comments Pt ronny well eb 07/10/21 16:40 Sodium 136 mmol/L (136-145) 07/12/21 04:27 Corrected Sodium 139 mmol/L (136-145) 07/12/21 04:27 Potassium 3.5 mmol/L (3.5-5.1) 07/12/21 04:27 Chloride 103 mmol/L (98-107) 07/12/21 04:27 Carbon Dioxide 24.6 mmol/L (21-32) 07/12/21 04:27 BUN 9 mg/dL (7-18) 07/12/21 04:27 Creatinine 0.69 mg/dL (0.70-1.30) L 07/12/21 04:27 Est GFR (MDRD) Af Amer > 60 (>60) 07/12/21 04:27 Est GFR (MDRD) Non-Af > 60 (>60) 07/12/21 04:27 Glucose 228 mg/dL (65-99) H 07/12/21 04:27 POC Glucose (mg/dL) 143 mg/dL (65-99) H 07/11/21 20:03 Lactic Acid 2.0 mmol/L (0.4-2.0) 07/10/21 15:42 Calcium 8.0 mg/dL (8.5-10.1) L 07/12/21 04:27 Corrected Calcium 9.5 mg/dL (8.5-10.1) 07/12/21 04:27 Magnesium 1.3 mg/dL (1.7-2.9) L 07/12/21 04:27 Total Bilirubin 0.30 mg/dL (0.2-1.0) 07/12/21 04:27 AST 10 Units/L (15-37) L 07/12/21 04:27 ALT < 6 Units/L (12-78) L 07/12/21 04:27 Alkaline Phosphatase 105 Units/L (46-116) 07/12/21 04:27 Creatine Kinase 19 Units/L (39-308) L 07/10/21 15:42 CK-MB (CK-2) < 1.0 ng/mL (0-4.0) 07/10/21 15:42 CK/CKMB % Calc 5.3 % (<4) 07/10/21 15:42 Troponin I High Sens 5.2 ng/L (4.0-60.0) 07/10/21 15:42 Total Protein 5.9 g/dL (6.4-8.2) L 07/12/21 04:27 Albumin 2.1 g/dL (3.4-5.0) L 07/12/21 04:27 Globulin 3.8 g/dL (2.5-4.5) 07/12/21 04:27 Albumin/Globulin Ratio 0.6 Ratio (1.1-2.1) L 07/12/21 04:27 Lipase 33 Units/L (73-393) L 07/10/21 15:42 Specimen Type Clean catch urine 07/10/21 19:50 Urine Color Yellow (YELLOW) 07/10/21 19:50 Urine Appearance Slightly hazy (CLEAR) 07/10/21 19:50 Urine pH 5.0 (5.0 - 8.0) 07/10/21 19:50 Ur Specific Criders 1.015 (1.000-1.030) 07/10/21 19:50 Urine Protein 2+ (NEGATIVE) 07/10/21 19:50 Urine Glucose (UA) 4+ (NEGATIVE) 07/10/21 19:50 Urine Ketones 2+ (NEGATIVE) 07/10/21 19:50 Urine Blood 1+ (NEGATIVE) 07/10/21 19:50 Urine Nitrite Positive (NEGATIVE) 07/10/21 19:50 Urine Bilirubin Negative (NEGATIVE) 07/10/21 19:50 Urine Urobilinogen Normal (NORMAL) 07/10/21 19:50 Ur Leukocyte Esterase Negative (NEGATIVE) 07/10/21 19:50 Urine RBC 0-2 /HPF (0-3) 07/10/21 19:50 Urine WBC 3-5 /HPF (0-5) 07/10/21 19:50 Ur Squamous Epith Cells Negative /HPF (NEGATIVE) 07/10/21 19:50 Urine Bacteria 2+ /HPF (NEGATIVE) 07/10/21 19:50 Ur Culture Indicated? Yes/culture set up 07/10/21 19:50 Urine Opiates Screen Negative (NEG=<300) 07/10/21 19:50 Urine Methadone Screen Negative (NEG=<300) 07/10/21 19:50 Ur Barbiturates Screen Negative (NEG=<200) 07/10/21 19:50 Ur Phencyclidine Scrn Negative (NEG=<25) 07/10/21 19:50 Ur Amphetamines Screen Negative (NEG=<1000) 07/10/21 19:50 U Benzodiazepines Scrn Negative (NEG=<200) 07/10/21 19:50 Urine Cocaine Screen Negative (NEG=<300) 07/10/21 19:50 U Marijuana (THC) Screen Positive (NEG=<50) A 07/10/21 19:50 Acetone, Semi-Quant Small (NEGATIVE) H 07/12/21 04:27 SARS-CoV-2 (PCR) Negative (NEGATIVE) 07/10/21 17:52 S. pyogenes (TEM-PCR) Not detected (NOT DETECT) 07/10/21 16:30 - Plan (1) Vomiting Status: Acute Qualifiers: Vomiting type: unspecified Nausea presence: with nausea Qualified Code(s): R11.2 - Nausea with vomiting, unspecified Plan: IV hydration. Repeat labs in am. SS coverage and blood sugar control (2) Poorly controlled diabetes mellitus Status: Acute (3) Nausea & vomiting Status: Acute (4) Hyperglycemia Status: Acute
[2021-07-12] MEDS: SNACK - Diabetic Appropriate PO SCH (20:30)
[2021-07-12] MEDS: K-DUR TAB 20 MEQ PO PRN (20:31)
--- NOTE | 2021-07-12 20:53 | PCM.PROG ---
Progress Note Progress Note for Day of Date of Exam: 07/12/21 Subjective Subjective: Patient is a 45 year old male who was admitted as per HPI. The patient's blood sugars still run in the 200s and he had small acetone in the urine still this morning. Magnesium is noted to be low at 1.3. Hemoglobin is 9.0 this morning. Past Medical Family Social History Past Med/Fam/Surg Hx: No changes since H&P Allergies: Allergies penicillin G Allergy (Verified 07/10/21 16:33) Review of Systems ROS: No change since H&P Vital Signs and I&O's Vital Signs: Temperature 97.7 F Pulse Rate 66 Respiratory Rate 16 Blood Pressure [Right Arm] 120/78 Blood Pressure 133/82 O2 Sat by Pulse Oximetry 98 Intake and Output: Intake & Output 07/10/21 07/11/21 07/12/21 07/13/21 11:59 11:59 11:59 11:59 Intake Total 2091 3801 / 3801 1200 / 1200 Output Total 1450 / 1450 300 / 300 Balance 2091 2351 / 2351 900 / 900 Physical Exam Oriented: Normal and Person Eyes: Normal Ear: Normal Nose: Normal Throat: Normal Respiratory: Normal Cardiovascular: Tachycardia : Normal Auscultation: Bowel Sounds: Normal Tenderness: Diffuse, Epigastric and Mild Skin: Decreased Turgur Musculoskeletal: Back:Thoracic and Back:Lumbar Psychiatric: Anxiety Affect: Anxious Speech Pattern: Clear and Appropriate Laboratory and Diagnostics Result Diagrams: 07/12/21 04:27 07/12/21 04:27 Labs: 07/10/21 19:50 Urine,Clean Catch Urine Culture - Final Escherichia Coli Laboratory WBC 7.3 X10^3/uL (3.6-10.0) 07/12/21 04:27 RBC 3.37 X10^6/uL (4.7-6.0) L 07/12/21 04:27 Hgb 9.0 g/dL (13.5-18.0) L 07/12/21 04:27 Hct 27.2 % (42.0-54.0) L 07/12/21 04:27 MCV 80.6 fL (80.0-100.0) 07/12/21 04:27 MCH 26.8 pg (27.0-34.0) L 07/12/21 04:27 MCHC 33.2 g/dL (33.0-35.0) 07/12/21 04:27 RDW 14.4 % (11.6-16.5) 07/12/21 04:27 Plt Count 265 X10^3/uL (150.0-450.0) 07/12/21 04:27 MPV 9.1 fL (7.4-11.0) 07/12/21 04:27 Neut % (Auto) 68.5 % (42.0-75.0) 07/12/21 04:27 Lymph % (Auto) 19.0 % (21.0-51.0) L 07/12/21 04:27 Hawkins % (Auto) 5.6 % (0.0-13.0) 07/12/21 04:27 Eos % (Auto) 5.5 % (0.9-2.9) H 07/12/21 04:27 Baso % (Auto) 1.4 % (0.2-1.0) H 07/12/21 04:27 Neut # (Auto) 5.0 x10^3/uL (2.2-4.8) H 07/12/21 04:27 Lymph # (Auto) 1.4 X10^3/uL (1.3-2.9) 07/12/21 04:27 Hawkins # (Auto) 0.4 x10^3/uL (0.3-0.8) 07/12/21 04:27 Eos # (Auto) 0.4 x10^3/uL (0.0-0.2) H 07/12/21 04:27 Baso # (Auto) 0.1 X10^3/uL (0.0-0.1) 07/12/21 04:27 Absolute Nucleated RBC 0.0 /100WBC 07/12/21 04:27 Sample Site Rra 07/10/21 16:40 ABG pH 7.510 (7.35-7.45) H 07/10/21 16:40 ABG pCO2 34.0 mmHg (35.0-45.0) L 07/10/21 16:40 ABG pO2 93.0 mmHg (80.0-100.0) 07/10/21 16:40 ABG HCO3 27.1 mmol/L (22-26) H 07/10/21 16:40 ABG O2 Saturation 98.0 % (90-100) 07/10/21 16:40 ABG Base Excess 4.2 mmol/L (-2.0-2.0) H 07/10/21 16:40 Freddy Test Pos 07/10/21 16:40 A-a Gradient 14.0 mmHg 07/10/21 16:40 FiO2 21.0 07/10/21 16:40 Blood Gas Comments Pt ronny well eb 07/10/21 16:40 Sodium 136 mmol/L (136-145) 07/12/21 04:27 Corrected Sodium 139 mmol/L (136-145) 07/12/21 04:27 Potassium 3.5 mmol/L (3.5-5.1) 07/12/21 04:27 Chloride 103 mmol/L (98-107) 07/12/21 04:27 Carbon Dioxide 24.6 mmol/L (21-32) 07/12/21 04:27 BUN 9 mg/dL (7-18) 07/12/21 04:27 Creatinine 0.69 mg/dL (0.70-1.30) L 07/12/21 04:27 Est GFR (MDRD) Af Amer > 60 (>60) 07/12/21 04:27 Est GFR (MDRD) Non-Af > 60 (>60) 07/12/21 04:27 Glucose 228 mg/dL (65-99) H 07/12/21 04:27 POC Glucose (mg/dL) 185 mg/dL (65-99) H 07/12/21 19:45 Lactic Acid 2.0 mmol/L (0.4-2.0) 07/10/21 15:42 Calcium 8.0 mg/dL (8.5-10.1) L 07/12/21 04:27 Corrected Calcium 9.5 mg/dL (8.5-10.1) 07/12/21 04:27 Magnesium 1.3 mg/dL (1.7-2.9) L 07/12/21 04:27 Total Bilirubin 0.30 mg/dL (0.2-1.0) 07/12/21 04:27 AST 10 Units/L (15-37) L 07/12/21 04:27 ALT < 6 Units/L (12-78) L 07/12/21 04:27 Alkaline Phosphatase 105 Units/L (46-116) 07/12/21 04:27 Creatine Kinase 19 Units/L (39-308) L 07/10/21 15:42 CK-MB (CK-2) < 1.0 ng/mL (0-4.0) 07/10/21 15:42 CK/CKMB % Calc 5.3 % (<4) 07/10/21 15:42 Troponin I High Sens 5.2 ng/L (4.0-60.0) 07/10/21 15:42 Total Protein 5.9 g/dL (6.4-8.2) L 07/12/21 04:27 Albumin 2.1 g/dL (3.4-5.0) L 07/12/21 04:27 Globulin 3.8 g/dL (2.5-4.5) 07/12/21 04:27 Albumin/Globulin Ratio 0.6 Ratio (1.1-2.1) L 07/12/21 04:27 Lipase 33 Units/L (73-393) L 07/10/21 15:42 Specimen Type Clean catch urine 07/10/21 19:50 Urine Color Yellow (YELLOW) 07/10/21 19:50 Urine Appearance Slightly hazy (CLEAR) 07/10/21 19:50 Urine pH 5.0 (5.0 - 8.0) 07/10/21 19:50 Ur Specific [place] 1.015 (1.000-1.030) 07/10/21 19:50 Urine Protein 2+ (NEGATIVE) 07/10/21 19:50 Urine Glucose (UA) 4+ (NEGATIVE) 07/10/21 19:50 Urine Ketones 2+ (NEGATIVE) 07/10/21 19:50 Urine Blood 1+ (NEGATIVE) 07/10/21 19:50 Urine Nitrite Positive (NEGATIVE) 07/10/21 19:50 Urine Bilirubin Negative (NEGATIVE) 07/10/21 19:50 Urine Urobilinogen Normal (NORMAL) 07/10/21 19:50 Ur Leukocyte Esterase Negative (NEGATIVE) 07/10/21 19:50 Urine RBC 0-2 /HPF (0-3) 07/10/21 19:50 Urine WBC 3-5 /HPF (0-5) 07/10/21 19:50 Ur Squamous Epith Cells Negative /HPF (NEGATIVE) 07/10/21 19:50 Urine Bacteria 2+ /HPF (NEGATIVE) 07/10/21 19:50 Ur Culture Indicated? Yes/culture set up 07/10/21 19:50 Urine Opiates Screen Negative (NEG=<300) 07/10/21 19:50 Urine Methadone Screen Negative (NEG=<300) 07/10/21 19:50 Ur Barbiturates Screen Negative (NEG=<200) 07/10/21 19:50 Ur Phencyclidine Scrn Negative (NEG=<25) 07/10/21 19:50 Ur Amphetamines Screen Negative (NEG=<1000) 07/10/21 19:50 U Benzodiazepines Scrn Negative (NEG=<200) 07/10/21 19:50 Urine Cocaine Screen Negative (NEG=<300) 07/10/21 19:50 U Marijuana (THC) Screen Positive (NEG=<50) A 07/10/21 19:50 Acetone, Semi-Quant Small (NEGATIVE) H 07/12/21 04:27 SARS-CoV-2 (PCR) Negative (NEGATIVE) 07/10/21 17:52 S. pyogenes (TEM-PCR) Not detected (NOT DETECT) 07/10/21 16:30 Plan (1) Vomiting: Status: Acute Qualifiers: Nausea presence: with nausea Vomiting type: unspecified Qualified Code(s): R11.2 - Nausea with vomiting, unspecified Plan: IV hydration Repeat labs in am SS coverage and blood sugar control (2) Poorly controlled diabetes mellitus: Status: Acute (3) Nausea & vomiting: Status: Acute (4) Hyperglycemia: Status: Acute (5) Ketonuria: Status: Acute Plan: Continue tight blood sugar control. Continue IV fluid. The patient is a very brittle diabetic so we are holding off on insulin drip at this time since he tends to bottom out with a small amount insulin. (6) Hypomagnesemia: Status: Acute Plan: Replace magnesium.
[2021-07-13] MEDS: NS 1,000 ML IV 1,000 ML IV SCH ×4 (00:25→20:06)
[2021-07-13 05:14] LABS: BASOPHILS # (AUTO) 0.1 X10^3/uL (0.0-0.1); BASOPHILS % (AUTO) 1.1 % (0.2-1.0); EOSINOPHILS # (AUTO) 0.3 x10^3/uL (0.0-0.2); HEMATOCRIT 26.8 % (42.0-54.0); HEMOGLOBIN 9.1 g/dL (13.5-18.0); LYMPHOCYTES # (AUTO) 1.4 X10^3/uL (1.3-2.9); LYMPHOCYTES % (AUTO) 23.3 % (21.0-51.0); MEAN CORPUSCULAR HEMOGLOBIN 26.8 pg (27.0-34.0); MEAN CORPUSCULAR HGB CONC 33.8 g/dL (33.0-35.0); MEAN CORPUSCULAR VOLUME 79.5 fL (80.0-100.0); MEAN PLATELET VOLUME 9.4 fL (7.4-11.0); MONOCYTES # (AUTO) 0.3 x10^3/uL (0.3-0.8); MONOCYTES % (AUTO) 5.6 % (0.0-13.0); NEUTROPHILS # (AUTO) 3.7 x10^3/uL (2.2-4.8); RED BLOOD COUNT 3.37 X10^6/uL (4.7-6.0); RED CELL DISTRIBUTION WIDTH 14.4 % (11.6-16.5); WHITE BLOOD COUNT 5.9 X10^3/uL (3.6-10.0)
[2021-07-13 05:21] LABS: ALANINE AMINOTRANSFERASE 7 Units/L (12-78); ALBUMIN 2.1 g/dL (3.4-5.0); ALKALINE PHOSPHATASE 112 Units/L (46-116); ASPARTATE AMINO TRANSFERASE 12 Units/L (15-37); BLOOD UREA NITROGEN 7 mg/dL (7-18); CALCIUM 7.9 mg/dL (8.5-10.1); CARBON DIOXIDE 25.8 mmol/L (21-32); CHLORIDE 100 mmol/L (98-107); COR CA(FOR HYPOALB) 9.4 mg/dL (8.5-10.1); COR NA(FOR HYPERGLY) 137 mmol/L (136-145); CREATININE 0.71 mg/dL (0.70-1.30); MAGNESIUM 1.4 mg/dL (1.7-2.9); SODIUM 133 mmol/L (136-145); eGFR NON BLACK RACES > 60 (>60)
[2021-07-13 05:35] LABS: SERUM ACETONE SMALL (NEGATIVE)
[2021-07-13] MEDS: K-DUR TAB 20 MEQ PO PRN (06:10)
[2021-07-13] MEDS: NovoLIN R (or HumuLIN R) SC PRN ×3 (06:11→20:07)
[2021-07-13] MEDS: MAGNESIUM SULFATE 1 GRAM/100 mL PREMIX 1 G/100 ML BAG IV PRN ×4 (06:11→12:53)
[2021-07-13] MEDS: PROTONIX INJ 40 MG VIAL IVP SCH ×2 (09:02→20:07)
[2021-07-13] MEDS: ROCEPHIN VIAL 1 GRAM 1 G in NS 100 ML IV 100 ML IV SCH (09:02)
[2021-07-13] MEDS: CYMBALTA PO SCH ×2 (09:02→20:06)
[2021-07-13] MEDS: ULTRAM PO PRN (16:49)
[2021-07-13] MEDS: SNACK - Diabetic Appropriate PO SCH (20:06)
--- NOTE | 2021-07-13 20:49 | PCM.PROG ---
Progress Note Progress Note for Day of Date of Exam: 07/13/21 Subjective Subjective: Patient is a 45 year old male who was admitted as per HPI. The patient's blood sugars still run in the 200s and he had small acetone in the urine still this morning. Magnesium is noted to be low at 1.4. Hemoglobin is 9.1 this morning. He has no new complaints this morning and had no acute problems over the night. Plan on discharge once his serum acetone is negative. Past Medical Family Social History Past Med/Fam/Surg Hx: No changes since H&P Allergies: Allergies penicillin G Allergy (Verified 07/10/21 16:33) Review of Systems ROS: No change since H&P Vital Signs and I&O's Vital Signs: Temperature 97.8 F Pulse Rate 51 Respiratory Rate 19 Blood Pressure [Right Arm] 120/78 Blood Pressure 145/82 O2 Sat by Pulse Oximetry 99 Intake and Output: Intake & Output 07/11/21 07/12/21 07/13/21 07/14/21 11:59 11:59 11:59 11:59 Intake Total 2091 3801 / 3801 3086 / 3086 1098 / 1098 Output Total 1450 / 1450 1300 / 1300 900 / 900 Balance 2091 2351 / 2351 1786 / 1786 198 / 198 Physical Exam Oriented: Normal and Person Eyes: Normal Ear: Normal Nose: Normal Throat: Normal Respiratory: Normal Cardiovascular: Tachycardia : Normal Auscultation: Bowel Sounds: Normal Tenderness: Diffuse, Epigastric and Mild Skin: Decreased Turgur Musculoskeletal: Back:Thoracic and Back:Lumbar Psychiatric: Anxiety Affect: Anxious Speech Pattern: Clear and Appropriate Laboratory and Diagnostics Result Diagrams: 07/13/21 03:44 07/13/21 03:44 Labs: 07/10/21 19:50 Urine,Clean Catch Urine Culture - Final Escherichia Coli Laboratory WBC 5.9 X10^3/uL (3.6-10.0) 07/13/21 03:44 RBC 3.37 X10^6/uL (4.7-6.0) L 07/13/21 03:44 Hgb 9.1 g/dL (13.5-18.0) L 07/13/21 03:44 Hct 26.8 % (42.0-54.0) L 07/13/21 03:44 MCV 79.5 fL (80.0-100.0) L 07/13/21 03:44 MCH 26.8 pg (27.0-34.0) L 07/13/21 03:44 MCHC 33.8 g/dL (33.0-35.0) 07/13/21 03:44 RDW 14.4 % (11.6-16.5) 07/13/21 03:44 Plt Count 281 X10^3/uL (150.0-450.0) 07/13/21 03:44 MPV 9.4 fL (7.4-11.0) 07/13/21 03:44 Neut % (Auto) 64.0 % (42.0-75.0) 07/13/21 03:44 Lymph % (Auto) 23.3 % (21.0-51.0) 07/13/21 03:44 [place]ison % (Auto) 5.6 % (0.0-13.0) 07/13/21 03:44 Eos % (Auto) 6.0 % (0.9-2.9) H 07/13/21 03:44 Baso % (Auto) 1.1 % (0.2-1.0) H 07/13/21 03:44 Neut # (Auto) 3.7 x10^3/uL (2.2-4.8) 07/13/21 03:44 Lymph # (Auto) 1.4 X10^3/uL (1.3-2.9) 07/13/21 03:44 Addison # (Auto) 0.3 x10^3/uL (0.3-0.8) 07/13/21 03:44 Eos # (Auto) 0.3 x10^3/uL (0.0-0.2) H 07/13/21 03:44 Baso # (Auto) 0.1 X10^3/uL (0.0-0.1) 07/13/21 03:44 Absolute Nucleated RBC 0.1 /100WBC 07/13/21 03:44 Sample Site Rra 07/10/21 16:40 ABG pH 7.510 (7.35-7.45) H 07/10/21 16:40 ABG pCO2 34.0 mmHg (35.0-45.0) L 07/10/21 16:40 ABG pO2 93.0 mmHg (80.0-100.0) 07/10/21 16:40 ABG HCO3 27.1 mmol/L (22-26) H 07/10/21 16:40 ABG O2 Saturation 98.0 % (90-100) 07/10/21 16:40 ABG Base Excess 4.2 mmol/L (-2.0-2.0) H 07/10/21 16:40 Freddy Test Pos 07/10/21 16:40 A-a Gradient 14.0 mmHg 07/10/21 16:40 FiO2 21.0 07/10/21 16:40 Blood Gas Comments Pt ronny well eb 07/10/21 16:40 Sodium 133 mmol/L (136-145) L 07/13/21 03:44 Corrected Sodium 137 mmol/L (136-145) 07/13/21 03:44 Potassium 3.5 mmol/L (3.5-5.1) 07/13/21 03:44 Chloride 100 mmol/L (98-107) 07/13/21 03:44 Carbon Dioxide 25.8 mmol/L (21-32) 07/13/21 03:44 BUN 7 mg/dL (7-18) 07/13/21 03:44 Creatinine 0.71 mg/dL (0.70-1.30) 07/13/21 03:44 Est GFR (MDRD) Af Amer > 60 (>60) 07/13/21 03:44 Est GFR (MDRD) Non-Af > 60 (>60) 07/13/21 03:44 Glucose 259 mg/dL (65-99) H 07/13/21 03:44 POC Glucose (mg/dL) 250 mg/dL (65-99) H 07/13/21 19:44 Lactic Acid 2.0 mmol/L (0.4-2.0) 07/10/21 15:42 Calcium 7.9 mg/dL (8.5-10.1) L 07/13/21 03:44 Corrected Calcium 9.4 mg/dL (8.5-10.1) 07/13/21 03:44 Magnesium 1.4 mg/dL (1.7-2.9) L 07/13/21 03:44 Total Bilirubin 0.30 mg/dL (0.2-1.0) 07/13/21 03:44 AST 12 Units/L (15-37) L 07/13/21 03:44 ALT 7 Units/L (12-78) L 07/13/21 03:44 Alkaline Phosphatase 112 Units/L (46-116) 07/13/21 03:44 Creatine Kinase 19 Units/L (39-308) L 07/10/21 15:42 CK-MB (CK-2) < 1.0 ng/mL (0-4.0) 07/10/21 15:42 CK/CKMB % Calc 5.3 % (<4) 07/10/21 15:42 Troponin I High Sens 5.2 ng/L (4.0-60.0) 07/10/21 15:42 Total Protein 6.0 g/dL (6.4-8.2) L 07/13/21 03:44 Albumin 2.1 g/dL (3.4-5.0) L 07/13/21 03:44 Globulin 3.9 g/dL (2.5-4.5) 07/13/21 03:44 Albumin/Globulin Ratio 0.5 Ratio (1.1-2.1) L 07/13/21 03:44 Lipase 33 Units/L (73-393) L 07/10/21 15:42 Specimen Type Clean catch urine 07/10/21 19:50 Urine Color Yellow (YELLOW) 07/10/21 19:50 Urine Appearance Slightly hazy (CLEAR) 07/10/21 19:50 Urine pH 5.0 (5.0 - 8.0) 07/10/21 19:50 Ur Specific [place] 1.015 (1.000-1.030) 07/10/21 19:50 Urine Protein 2+ (NEGATIVE) 07/10/21 19:50 Urine Glucose (UA) 4+ (NEGATIVE) 07/10/21 19:50 Urine Ketones 2+ (NEGATIVE) 07/10/21 19:50 Urine Blood 1+ (NEGATIVE) 07/10/21 19:50 Urine Nitrite Positive (NEGATIVE) 07/10/21 19:50 Urine Bilirubin Negative (NEGATIVE) 07/10/21 19:50 Urine Urobilinogen Normal (NORMAL) 07/10/21 19:50 Ur Leukocyte Esterase Negative (NEGATIVE) 07/10/21 19:50 Urine RBC 0-2 /HPF (0-3) 07/10/21 19:50 Urine WBC 3-5 /HPF (0-5) 07/10/21 19:50 Ur Squamous Epith Cells Negative /HPF (NEGATIVE) 07/10/21 19:50 Urine Bacteria 2+ /HPF (NEGATIVE) 07/10/21 19:50 Ur Culture Indicated? Yes/culture set up 07/10/21 19:50 Urine Opiates Screen Negative (NEG=<300) 07/10/21 19:50 Urine Methadone Screen Negative (NEG=<300) 07/10/21 19:50 Ur Barbiturates Screen Negative (NEG=<200) 07/10/21 19:50 Ur Phencyclidine Scrn Negative (NEG=<25) 07/10/21 19:50 Ur Amphetamines Screen Negative (NEG=<1000) 07/10/21 19:50 U Benzodiazepines Scrn Negative (NEG=<200) 07/10/21 19:50 Urine Cocaine Screen Negative (NEG=<300) 07/10/21 19:50 U Marijuana (THC) Screen Positive (NEG=<50) A 07/10/21 19:50 Acetone, Semi-Quant Small (NEGATIVE) H 07/13/21 03:44 SARS-CoV-2 (PCR) Negative (NEGATIVE) 07/10/21 17:52 S. pyogenes (TEM-PCR) Not detected (NOT DETECT) 07/10/21 16:30 Plan (1) Vomiting: Status: Resolved Qualifiers: Nausea presence: with nausea Vomiting type: unspecified Qualified Code(s): R11.2 - Nausea with vomiting, unspecified Plan: IV hydration Repeat labs in am SS coverage and blood sugar control (2) Poorly controlled diabetes mellitus: Status: Acute (3) Nausea & vomiting: Status: Resolved (4) Hyperglycemia: Status: Acute (5) Hypomagnesemia: Status: Acute Plan: Replace magnesium. (6) DKA (diabetic ketoacidosis): Status: Acute Plan: Continue IV fluid and sliding scale regular insulin per protocol. Holding off on an insulin drip at this time since he tends to bottom out severely when given insulin. Apparently the patient is a very brittle diabetic. We are starting him on a diabetic diet this morning.
[2021-07-14] MEDS: NS 1,000 ML IV 1,000 ML IV SCH ×2 (04:38→15:59)
[2021-07-14 05:29] LABS: BASOPHILS # (AUTO) 0.1 X10^3/uL (0.0-0.1); BASOPHILS % (AUTO) 1.1 % (0.2-1.0); EOSINOPHILS # (AUTO) 0.3 x10^3/uL (0.0-0.2); EOSINOPHILS % (AUTO) 5.6 % (0.9-2.9); HEMATOCRIT 25.2 % (42.0-54.0); HEMOGLOBIN 8.7 g/dL (13.5-18.0); LYMPHOCYTES # (AUTO) 1.3 X10^3/uL (1.3-2.9); MEAN CORPUSCULAR HEMOGLOBIN 27.2 pg (27.0-34.0); MEAN CORPUSCULAR HGB CONC 34.4 g/dL (33.0-35.0); MEAN CORPUSCULAR VOLUME 78.9 fL (80.0-100.0); MEAN PLATELET VOLUME 9.1 fL (7.4-11.0); MONOCYTES # (AUTO) 0.4 x10^3/uL (0.3-0.8); MONOCYTES % (AUTO) 7.4 % (0.0-13.0); NEUTROPHILS # (AUTO) 2.9 x10^3/uL (2.2-4.8); NEUTROPHILS % (AUTO) 58.9 % (42.0-75.0); RED BLOOD COUNT 3.19 X10^6/uL (4.7-6.0); RED CELL DISTRIBUTION WIDTH 14.6 % (11.6-16.5)
[2021-07-14 05:47] LABS: ALANINE AMINOTRANSFERASE 10 Units/L (12-78); ALKALINE PHOSPHATASE 110 Units/L (46-116); ASPARTATE AMINO TRANSFERASE 20 Units/L (15-37); BLOOD UREA NITROGEN 5 mg/dL (7-18); CALCIUM 7.6 mg/dL (8.5-10.1); CARBON DIOXIDE 27.3 mmol/L (21-32); CHLORIDE 102 mmol/L (98-107); COR CA(FOR HYPOALB) 9.2 mg/dL (8.5-10.1); CREATININE 0.57 mg/dL (0.70-1.30); SODIUM 137 mmol/L (136-145); TOTAL PROTEIN 5.7 g/dL (6.4-8.2); eGFR NON BLACK RACES > 60 (>60)
[2021-07-14] MEDS: K-RIDER 10 MEQ/NS 100 ML 10 MEQ/100 ML BAG IV PRN ×2 (06:20→07:51)
[2021-07-14 06:44] LABS: SERUM ACETONE NEGATIVE (NEGATIVE)
[2021-07-14] MEDS ORDERED: COLACE CAP 100 MG PO PRN (07:55)
[2021-07-14] MEDS ORDERED: MILK OF MAGNESIA PO PRN (07:55)
[2021-07-14] MEDS: MAGNESIUM SULFATE 1 GRAM/100 mL PREMIX 1 G/100 ML BAG IV PRN ×2 (08:31→12:07)
[2021-07-14] MEDS: ROCEPHIN VIAL 1 GRAM 1 G in NS 100 ML IV 100 ML IV SCH (08:32)
[2021-07-14] MEDS: PROTONIX INJ 40 MG VIAL IVP SCH (08:32)
[2021-07-14] MEDS: CYMBALTA PO SCH (08:33)
[2021-07-14] MEDS: NovoLIN R (or HumuLIN R) SC PRN (12:06)
[2021-07-14 14:20] LABS: BASOPHILS % (AUTO) 0.8 % (0.2-1.0); EOSINOPHILS # (AUTO) 0.2 x10^3/uL (0.0-0.2); EOSINOPHILS % (AUTO) 4.1 % (0.9-2.9); HEMATOCRIT 26.6 % (42.0-54.0); LYMPHOCYTES # (AUTO) 1.2 X10^3/uL (1.3-2.9); LYMPHOCYTES % (AUTO) 22.4 % (21.0-51.0); MEAN CORPUSCULAR HGB CONC 33.8 g/dL (33.0-35.0); MEAN CORPUSCULAR VOLUME 79.8 fL (80.0-100.0); MEAN PLATELET VOLUME 8.1 fL (7.4-11.0); MONOCYTES # (AUTO) 0.4 x10^3/uL (0.3-0.8); MONOCYTES % (AUTO) 7.2 % (0.0-13.0); NEUTROPHILS # (AUTO) 3.4 x10^3/uL (2.2-4.8); NEUTROPHILS % (AUTO) 65.5 % (42.0-75.0); RED BLOOD COUNT 3.34 X10^6/uL (4.7-6.0); RED CELL DISTRIBUTION WIDTH 14.4 % (11.6-16.5); WHITE BLOOD COUNT 5.2 X10^3/uL (3.6-10.0)
[2021-07-14 14:48] LABS: ALANINE AMINOTRANSFERASE 10 Units/L (12-78); ALKALINE PHOSPHATASE 119 Units/L (46-116); ASPARTATE AMINO TRANSFERASE 16 Units/L (15-37); BLOOD UREA NITROGEN 5 mg/dL (7-18); CALCIUM 7.5 mg/dL (8.5-10.1); CARBON DIOXIDE 27.9 mmol/L (21-32); CHLORIDE 99 mmol/L (98-107); COR CA(FOR HYPOALB) 9.1 mg/dL (8.5-10.1); COR NA(FOR HYPERGLY) 136 mmol/L (136-145); CREATININE 0.66 mg/dL (0.70-1.30); SODIUM 133 mmol/L (136-145); TOTAL PROTEIN 5.7 g/dL (6.4-8.2); eGFR NON BLACK RACES > 60 (>60)
[2021-07-14 15:07] VITALS: BP 146/87
--- NOTE | 2021-08-20 22:41 | PCM.DCPLAN ---
Discharge Plan - Discharge Plan Hospital Course: Admit date 07/10/21 Discharge date 07/14/21 DOS 07/14/21 Admit diagnosis(1) Hyponatremia (2) Fever (3) Hyperglycemia (4) Nausea & vomiting (5) Rheumatoid arthritis (6) Dehydration (7) UTI Discharge diagnosis SAME Hospital Course PT IS 45 WM ER ADMISSION AFTER BEING SENT TO ER FROM PCP DUE TO DECREASED RESPOSIVENESS, SUSPECTED DKA. PT IS KNOWN TYPE I DIABETIC AND RA AND HYPERTENSION. PT WAS RECENTLY STARTED ON PLA[place]ENIL PER DR RENEE. PT FAMILY STATES HE HAS NOT BEEN ABLE TO EAT OR DRINK DUE TO VOMITING. PT CO PAIN ALL OVER, FEVER 102 IN OFFICE AND DIFFUSE LETHARGY. PT ADMITTED FOR TREATMENT OF ACUTE ILLNESS. PATIENT IS A BRITTLE DIABETIC AND DID NOT REQUIRE INSULIN DRIP. BLOOD SUGAR WAS CONTROLLED WITH SLIDING SCALE. NAUSEA AND VOMITING RESOLVED WELL ALL OTHER SYMPTOMS. PATIENT WAS ABLE TO EAT AND DRINK NORMALLY. LABS NORMALIZED TO PATIENT BASELINE. IMAGING SHOWED NO ACUTE ABNORMALITY. PATIENT WAS DISCHARGED HOME TO FOLLOW UP IN 1 WEEK WITH PCP. URINE CULTURE WAS POSITIVE TO UTI; ADEQUATELY TREATED WITH IV ABX WHILE ADMITTED. Discharge time spent >35 mins. Disposition: 01 HOME, SELF-CARE Condition: Stable Health Concerns: Post Hospitalization: new medications and changes needed to prevent readmission or further decline. Pt educated and given instructions on all concerns. Care Plan Goals: Problem: Fluid Volume Deficit Goal: Maintain/Improved Adequate hydration. Instructions: Follow provided instructions. Follow up with primary physician as directed. Contact primary care physician or report to the closest Emergency Room if condition worsens. Plan of Treatment: Continue with present treatment and follow up plan. Pt is to keep follow up appointment as instructed and take medications as ordered. Prescriptions: New pantoprazole [Protonix] 40 mg Tablet,Delayed Release (Dr/Ec) 40 mg PO BID Qty: 60 RF: 0 Transmission Status: Received by [facility] Continued duloxetine [Cymbalta] 30 mg Capsule,Delayed Release(Dr/Ec) 30 mg PO BID folic acid 1 mg Tablet 1 mg PO BID hydroxychloroquine [Plaquenil] 200 mg Tablet 200 mg PO DAILY methotrexate (PF) 7.5 mg/0.15 mL Auto-Injector 0.6 mg SUBCUT WEEKLY Novolin 70-30 FlexPen U-100 100 unit/mL (70-30) Insulin Pen 40 unit SUBCUT BID No Action ondansetron 4 mg tablet,disintegrating 4 mg PO Q6H PRN (Reason: nausea and vomiting) 3 Days Qty: 12 RF: 0 sucralfate 1 gram tablet 1 g PO QID PRN (Reason: to coat the stomach) 3 Days Qty: 12 RF: 0 - Orders to Discharge Patient Discharge Orders: Discharge (Routine); Ordered 07/14/21 Ordered By: Cleopatra Vera - Follow ups/Referrals Follow ups/Referrals: NADEGE PERALES [Nurse Practitioner] - 07/22/21 2:30 pm - Instructions Instructions: Hypokalemia, Type 2 Diabetes Mellitus, Self-Care, Adult, [id number], Nausea and Vomiting, Adult, [id number], Diabetic Ketoacidosis, Preventing Diabetes Mellitus Complications Forms: Precautions for COVID19, [facility], Patient Portal, Social Distancing Print Language: [id number]
== END 2021-07-14 16:45 | disposition home or self-care (01) ==
LOC: ICU 15:15 → ER 15:15 → ICU 20:18
PROVIDERS: ADMIT Internal Medicine; ATTEND Internal Medicine

== ENCOUNTER 2021-10-18 07:59 | Observation (INO) ==
[2021-10-18] MEDS ORDERED: ZOFRAN INJ 4 MG VIAL ONE ×3 (08:09→15:53)
[2021-10-18] MEDS ORDERED: NS 1,000 ML IV 1,000 ML ONE ×2 (08:10→10:08)
[2021-10-18] MEDS ORDERED: NS 1,000 ML IV 1,000 ML IV ONE ×2 (08:15→10:09)
[2021-10-18] MEDS ORDERED: ZOFRAN INJ 4 MG VIAL IVP ONE ×2 (08:15→11:00)
--- NOTE | 2021-10-18 08:27 | DR.N/VMALE ---
HPI Time Seen Time Seen by Provider: 10/18/21 08:10 Primary Care Physician Primary Care Physician: SYL FLORES HPI Comment HPI Comment: PATIENT IS 45YR OLD MALE WITH DM AND HTN IN ER WITH NAUSEA AND VOMITING TIMES ONE AND HALF WEEK AND ABDOMINAL CRAMPING TIMES ONE WEEK. HE IS WEAK AND TIRED. NO FEVER, DIARRHEA OR DYSURIA. Complaints Chief Complaint Doctors Comments: ABDOMINAL PAIN, NAUSEA AND VOMITING TIMES ONE ABD HALF WEEK. Chief Complaint:: PT C/O CONSTANT NAUSEA AND VOMITING X 1 1/2 WEEKS. PT C/O CONSTANT GENERALIZED SHARP CRAMPING ABDOMINAL PAIN X 1 WEEK. DENIES FEVER. COVID-19 Coronavirus risk:travel/contact w/high risk person: No Has patient experienced Coronavirus symptoms: No Reviewed Nurses Notes Reviewed: Yes Source History Provided: Patient Mode of Arrival Mode of Arrival: Ambulatory Timing Onset of Chief Complaint: 10/18/21 Context Onset: Spontaneous Possible medication related (specify):: NO Recent: None History of: Diabetes Quality Quality: Food Particles Associated Signs and Symptoms Abdominal Pain Quality: Cramping PMH PMH Past Medical History: Yes Past Medical History: Anxiety, Arthritis, Diabetes, GERD, Hypertension and Kidney Stones Past Medical History Comment: RHEUMATOID ARTHRITIS Past Surgical History: Yes Surgical History: Ortho Surgery and Lithotripsy Past Surgical History Comment: SKIN GRAFT Family History History of Family Medical Conditions: Yes Family Medical History: Cancer Social History Does patient currently use any type of tobacco product: Yes Have you used tobacco products in the last 12 months: Yes Type of Tobacco Use: Cigarettes Does any household member use tobacco: No Alcohol Use: None Do you use any recreational Drugs:: Yes (MARIJUANA) Lives With: Alone Lives Where: Home Travel Risk Coronavirus risk:travel/contact w/high risk person: No Has patient experienced Coronavirus symptoms: No Infectious screening In the last 2 months have you had wt loss of >10#?: NO Have you had fever, night sweats or hemotysis?: No Have you traveled outside the country in the last 6 months?: No Isolation: Standard ROS Review of Systems Constitutional: No Symptoms Reported, See HPI, Weakness and Fatigue; negative Fever Eyes: No Symptoms Reported and See HPI ENTM: No Symptoms Reported and See HPI; negative Nose Discharge or Nose Congestion Respiratoy: No Symptoms Reported, See HPI and Short of Breath; negative Moist Cough Cardiovascular: See HPI and Chest Pain (INTERMITTENT SHARP PAIN.) Gastrointestinal/Abdominal: See HPI, Abdominal Pain, Nausea and Vomiting; negative Diarrhea Genitourinary: No Symptoms Reported and See HPI; negative Dysuria, Frequency or Hematuria Neurological: See HPI and Speech Problem; negative Headache or Dizziness Musculoskeletal: See HPI and Muscle Pain Integumentary: See HPI and Dryness; negative Rash or Juandice Hematologic/Lymphatic: No Symptoms Reported and See HPI; negative Easy Bleeding, Easy Bruising or Swollen Glands Endocrine: See HPI and Increased Thirst; negative Increased Urine Psychiatric: No Symptoms Reported and See HPI All Other Systems: Reviewed and Negative PE Vital Signs Vitals: Temperature 98 F Pulse Rate 77 Respiratory Rate 49 Blood Pressure [Right Arm] 120/78 Blood Pressure [Left Arm] 145/99 Blood Pressure 98/62 O2 Sat by Pulse Oximetry 99 General Limitations: No Limitations General Appearance: Alert and In Distress Head Head Exam: Normal Inspection Eyes Eye exam: Normal Appearance; negative Scleral Icterus or Conjunctival Injection ENT ENT Exam: Normal Exam; negative Normal Oropharynx, Normal External Ear Exam or Mucous Membranes Moist Neck Neck Exam: Normal Inspection and Trachea Midline; negative Tenderness Chest Chest Inspection: Normal Inspection and Symmetric Chest Wall Rise; negative Tenderness Respiratory Respiratory Exam: negative Accessory Muscle Use, Chest Wall Tenderness or Respiratory Distress Respiratory Exam: Bilateral: Clear to Auscultation Cardiovascular Cardiovascular Exam: Normal Rhythm, Tachycardia and Normal Heart Sounds; negative Systolic Murmur or Diastolic Murmur Abdominal Exam Abdominal Exam: Normal Bowel Sounds, Soft and Tenderness Abdominal Tenderness: Diffuse and Moderate Rectal Rectal Exam: Deferred Exam: Male: Deferred Extremities Extremities Exam: Normal Inspection and Normal Capillary Refill Back Back Exam: Normal Inspection; negative (R) CVA Tenderness or (L) CVA Tenderness Neurologic Neurological Exam: Alert and Oriented X3; negative Motor Sensory Deficit Psychiatric Psychiatric Exam: Normal Affect and Normal Mood Skin Skin Exam: Dry MDM Differential Diagnosis Differential Diagnosis: Considerations may Include:: Cholecystitis, Gastritis, Gastroenteritis, Inflammatory BD, Pancreatitis, PUD, Urinary Tract Infection and Urolithiasis COURSE Treatment Treatment: SEE ORDERS DONE WHILE IN ER. PATIENT GIVEN NS 1L IV BOLUS, ZOFRAN 4MG IV AND PEPCID 2OMG IVPB. LABS AND XRAY REPORT DISCUSSED WITH PATIENT. Consultation Consultation Comments: DISCUSSED PATIENT WITH . HE WILL ADMIT PATIENT. Education/Counseling Education/Counseling: Patient Educated On: Treatment, Diagnosis and Needs for Follow Up ROR Labs Reviewed Laboratory Results Reviewed?: Yes Result Diagrams: 10/19/21 05:45 10/19/21 05:45 Laboratory: 10/18/21 10:50 Urine,Clean Catch Urine Culture - Preliminary WBC 7.1 X10^3/uL (3.6-10.0) 10/18/21 08:50 RBC 4.38 X10^6/uL (4.7-6.0) L 10/18/21 08:50 Hgb 11.7 g/dL (13.5-18.0) L 10/18/21 08:50 Hct 34.5 % (42.0-54.0) L 10/18/21 08:50 MCV 78.8 fL (80.0-100.0) L 10/18/21 08:50 MCH 26.7 pg (27.0-34.0) L 10/18/21 08:50 MCHC 33.9 g/dL (33.0-35.0) 10/18/21 08:50 RDW 19.7 % (11.6-16.5) H 10/18/21 08:50 Plt Count 332 X10^3/uL (150.0-450.0) 10/18/21 08:50 Plt Count Comment Adequate (ADEQUATE) 10/18/21 08:50 MPV 7.9 fL (7.4-11.0) 10/18/21 08:50 Neut % (Auto) 69.5 % (42.0-75.0) 10/18/21 08:50 Lymph % (Auto) 14.2 % (21.0-51.0) L 10/18/21 08:50 [place] % (Auto) 14.7 % (0.0-13.0) H 10/18/21 08:50 Eos % (Auto) 0.7 % (0.9-2.9) L 10/18/21 08:50 Baso % (Auto) 0.9 % (0.2-1.0) 10/18/21 08:50 Neut # (Auto) 5.0 x10^3/uL (2.2-4.8) H 10/18/21 08:50 Lymph # (Auto) 1.0 X10^3/uL (1.3-2.9) L 10/18/21 08:50 [place] # (Auto) 1.1 x10^3/uL (0.3-0.8) H 10/18/21 08:50 Eos # (Auto) 0.0 x10^3/uL (0.0-0.2) 10/18/21 08:50 Baso # (Auto) 0.1 X10^3/uL (0.0-0.1) 10/18/21 08:50 Absolute Nucleated RBC 0.1 /100WBC 10/18/21 08:50 Total Counted 100 10/18/21 08:50 Neutrophils % (Manual) 67 % (39-76) 10/18/21 08:50 Lymphocytes % (Manual) 16 % (13-43) 10/18/21 08:50 Monocytes % (Manual) 17 % (4-9) H 10/18/21 08:50 Plt Morphology Comment Normal (NORMAL) 10/18/21 08:50 RBC Morphology Normal (NORMAL) 10/18/21 08:50 Sodium 134 mmol/L (136-145) L 10/18/21 08:50 Corrected Sodium 136 mmol/L (136-145) 10/18/21 08:50 Potassium 3.7 mmol/L (3.5-5.1) 10/18/21 08:50 Chloride 94 mmol/L (98-107) L 10/18/21 08:50 Carbon Dioxide 27.8 mmol/L (21-32) 10/18/21 08:50 BUN 21 mg/dL (7-18) H 10/18/21 08:50 Creatinine 1.04 mg/dL (0.70-1.30) 10/18/21 08:50 Est GFR (MDRD) Af Amer > 60 (>60) 10/18/21 08:50 Est GFR (MDRD) Non-Af > 60 (>60) 10/18/21 08:50 Glucose 183 mg/dL (65-99) H 10/18/21 08:50 Calcium 8.9 mg/dL (8.5-10.1) 10/18/21 08:50 Corrected Calcium 9.9 mg/dL (8.5-10.1) 10/18/21 08:50 Total Bilirubin 0.40 mg/dL (0.2-1.0) 10/18/21 08:50 AST 16 Units/L (15-37) 10/18/21 08:50 ALT 11 Units/L (12-78) L 10/18/21 08:50 Alkaline Phosphatase 137 Units/L (46-116) H 10/18/21 08:50 Total Protein 8.5 g/dL (6.4-8.2) H 10/18/21 08:50 Albumin 2.8 g/dL (3.4-5.0) L 10/18/21 08:50 Globulin 5.7 g/dL (2.5-4.5) H 10/18/21 08:50 Albumin/Globulin Ratio 0.5 Ratio (1.1-2.1) L 10/18/21 08:50 Amylase 73 Units/L (25-115) 10/18/21 08:50 Lipase 27 Units/L (73-393) L 10/18/21 08:50 Specimen Type Clean catch urine 10/18/21 10:50 Urine Color Yellow (YELLOW) 10/18/21 10:50 Urine Appearance Cloudy (CLEAR) 10/18/21 10:50 Urine pH 6.0 (5.0 - 8.0) 10/18/21 10:50 Ur Specific [place] 1.025 (1.000-1.030) 10/18/21 10:50 Urine Protein 2+ (NEGATIVE) 10/18/21 10:50 Urine Glucose (UA) Negative (NEGATIVE) 10/18/21 10:50 Urine Ketones 4+ (NEGATIVE) 10/18/21 10:50 Urine Blood 2+ (NEGATIVE) 10/18/21 10:50 Urine Nitrite Positive (NEGATIVE) 10/18/21 10:50 Urine Bilirubin Negative (NEGATIVE) 10/18/21 10:50 Urine Urobilinogen 1+ (NORMAL) 10/18/21 10:50 Ur Leukocyte Esterase 1+ (NEGATIVE) 10/18/21 10:50 Urine RBC 3-5 /HPF (0-3) A 10/18/21 10:50 Urine WBC 5-10 /HPF (0-5) A 10/18/21 10:50 Ur Squamous Epith Cells Negative /HPF (NEGATIVE) 10/18/21 10:50 Amorphous Sediment Trace /HPF (NEGATIVE) 10/18/21 10:50 Urine Bacteria 3+ /HPF (NEGATIVE) 10/18/21 10:50 Ur Culture Indicated? Yes/culture set up 10/18/21 10:50 Acetone, Semi-Quant Small (NEGATIVE) H 10/18/21 08:50 SARS CoV-2 RNA Rapid ALLIE Negative (NEGATIVE) 10/18/21 08:12 XRAY XRAY Interpreted by: Radiologist (REPORT NOTED.) and Self Opioid Opioid Risk Tool Age (Jose box if 16-45): Yes History of Preadolescent Sexual Abuse: No Total: 1 Total Score Risk Category: Low Risk Copyright: Antonio GAMBLE predicting aberrant behaviors Discharge Plan Diagnosis Discharge Problem: Abdominal pain, Acute dehydration, Acute hyperglycemia, Cholelithiasis, UTI (urinary tract infection) Discharge Plan Patient Disposition: ADMITTED INPATIENT Condition: Stable
[2021-10-18 08:41] LABS: BASOPHILS # (AUTO) 0.1 X10^3/uL (0.0-0.1); BASOPHILS % (AUTO) 0.9 % (0.2-1.0); EOSINOPHILS % (AUTO) 0.7 % (0.9-2.9); HEMATOCRIT 34.5 % (42.0-54.0); HEMOGLOBIN 11.7 g/dL (13.5-18.0); LYMPHOCYTES % (AUTO) 14.2 % (21.0-51.0); MEAN CORPUSCULAR HEMOGLOBIN 26.7 pg (27.0-34.0); MEAN CORPUSCULAR HGB CONC 33.9 g/dL (33.0-35.0); MEAN CORPUSCULAR VOLUME 78.8 fL (80.0-100.0); MEAN PLATELET VOLUME 7.9 fL (7.4-11.0); MONOCYTES # (AUTO) 1.1 x10^3/uL (0.3-0.8); MONOCYTES % (AUTO) 14.7 % (0.0-13.0); NEUTROPHILS % (AUTO) 69.5 % (42.0-75.0); RED BLOOD COUNT 4.38 X10^6/uL (4.7-6.0); RED CELL DISTRIBUTION WIDTH 19.7 % (11.6-16.5); WHITE BLOOD COUNT 7.1 X10^3/uL (3.6-10.0)
[2021-10-18] MEDS ORDERED: PEPCID 20 MG VIAL 20 MG in NS 50 ML IV 50 ML IV ONE (08:41)
[2021-10-18] MEDS ORDERED: NS 100 ML IV 100 ML ONE (08:46)
[2021-10-18 08:47] LABS: AMYLASE 73 Units/L (25-115)
[2021-10-18 09:00] LABS: ALBUMIN 2.8 g/dL (3.4-5.0); CHLORIDE 94 mmol/L (98-107); eGFR NON BLACK RACES > 60 (>60)
[2021-10-18 09:10] LABS: SERUM ACETONE SMALL (NEGATIVE)
[2021-10-18 09:13] LABS: ALANINE AMINOTRANSFERASE 11 Units/L (12-78); ALKALINE PHOSPHATASE 137 Units/L (46-116); ASPARTATE AMINO TRANSFERASE 16 Units/L (15-37); BLOOD UREA NITROGEN 21 mg/dL (7-18); CALCIUM 8.9 mg/dL (8.5-10.1); CARBON DIOXIDE 27.8 mmol/L (21-32); COR CA(FOR HYPOALB) 9.9 mg/dL (8.5-10.1); COR NA(FOR HYPERGLY) 136 mmol/L (136-145); CREATININE 1.04 mg/dL (0.70-1.30); SODIUM 134 mmol/L (136-145); TOTAL PROTEIN 8.5 g/dL (6.4-8.2)
[2021-10-18 09:20] LABS: LIPASE 27 Units/L (73-393)
--- NOTE | 2021-10-18 09:24 | CT ---
HISTORY:Nausea and vomitingStudy: CT abdomen and pelvis without contrastComparison:NoneTechnique: Multiple axial images of the abdomen and pelvis were obtained without IV contrast. Oral contrast was not administered. Dose reduction techniques including Automated Exposure Control (AEC) and adjustment of mA and kV were utilized.FINDINGS:Please note evaluation is limited without IV contrast.The lung bases are clear. The liver, spleen, pancreas, and adrenal glands are unremarkable in their unenhanced appearance. Layering sludge versus small gallstones in the gallbladder suspected which can be further evaluated with ultrasound. No renal calculi or obstructive uropathy.No free intraperitoneal air. No evidence of intestinal obstruction or inflammation. Appendix is normal. No ascites.The soft tissues and osseous structures are intact. Limited evaluation of vascular structures due to lack of IV contrast. No pathologically enlarged lymph nodes are identified. Normal urinary bladder.IMPRESSION ABDOMEN/PELVIS:Layering sludge versus small gallstones in the gallbladder. Ultrasound can be performed for further evaluation.Otherwise negative noncontrast exam.Electronically signed by: JUVENCIO SUN (Oct 18, 2021 09:22:57)
[2021-10-18 09:29] LABS: PLATELET MORPHOLOGY COMMENT NORMAL (NORMAL)
[2021-10-18] MEDS ORDERED: DEMEROL INJ IVP ONE (11:00)
[2021-10-18] MEDS ORDERED: DEMEROL INJ ONE (11:04)
[2021-10-18 11:09] LABS: BILIRUBIN,URINE NEGATIVE (NEGATIVE); BLOOD/HEMOGLOBIN,URINE 2+ (NEGATIVE); GLUCOSE, URINE NEGATIVE (NEGATIVE); KETONES,URINE 4+ (NEGATIVE); LEUKOCYTE ESTERASE ,URINE 1+ (NEGATIVE); NITRITES,URINE POSITIVE (NEGATIVE); PROTEIN,URINE 2+ (NEGATIVE); UROBILINOGEN,URINE 1+ (NORMAL)
[2021-10-18 11:23] LABS: APPEARANCE,URINE CLOUDY (CLEAR); BACTERIA,URINE 3+ /HPF (NEGATIVE); COLOR,URINE YELLOW (YELLOW); SQUAMOUS EPITHELIAL CELL,UR NEGATIVE /HPF (NEGATIVE)
[2021-10-18] MEDS ORDERED: NovoLIN R (or HumuLIN R) SC PRN (13:08)
[2021-10-18 14:07] VITALS: BMI 15.6
[2021-10-18] MEDS: NS 1,000 ML IV 1,000 ML IV SCH (14:27)
[2021-10-18] MEDS: LEVAQUIN PREMIX IV 500 MG 500 MG/100 ML BAG IV SCH (14:31)
[2021-10-18] MEDS ORDERED: CITROMA PO ONE (15:16)
[2021-10-18] MEDS ORDERED: COLACE CAP 100 MG PO ONE ×2 (15:20→15:21)
[2021-10-18] MEDS ORDERED: TORADOL 30 MG VIAL ONE (15:54)
[2021-10-18] MEDS: ZOFRAN INJ 4 MG VIAL IVP PRN (15:59)
[2021-10-18] MEDS: TORADOL 30 MG VIAL IVP PRN (16:00)
[2021-10-18] MEDS: PHENERGAN TAB 25 MG PO PRN (18:22)
[2021-10-18] MEDS: ULTRAM PO PRN ×2 (18:22→18:23)
[2021-10-18] MEDS: NICOTINE PATCH TD SCH (19:00)
[2021-10-19] MEDS: NS 1,000 ML IV 1,000 ML IV SCH ×4 (00:30→17:48)
[2021-10-19 06:15] LABS: BASOPHILS % (AUTO) 0.2 % (0.2-1.0); EOSINOPHILS # (AUTO) 0.3 x10^3/uL (0.0-0.2); EOSINOPHILS % (AUTO) 5.4 % (0.9-2.9); HEMATOCRIT 29.5 % (42.0-54.0); LYMPHOCYTES # (AUTO) 1.2 X10^3/uL (1.3-2.9); LYMPHOCYTES % (AUTO) 23.1 % (21.0-51.0); MEAN CORPUSCULAR HEMOGLOBIN 26.8 pg (27.0-34.0); MEAN CORPUSCULAR HGB CONC 33.7 g/dL (33.0-35.0); MEAN CORPUSCULAR VOLUME 79.3 fL (80.0-100.0); MEAN PLATELET VOLUME 8.3 fL (7.4-11.0); MONOCYTES # (AUTO) 0.9 x10^3/uL (0.3-0.8); MONOCYTES % (AUTO) 17.7 % (0.0-13.0); NEUTROPHILS # (AUTO) 2.8 x10^3/uL (2.2-4.8); NEUTROPHILS % (AUTO) 53.6 % (42.0-75.0); RED BLOOD COUNT 3.72 X10^6/uL (4.7-6.0); RED CELL DISTRIBUTION WIDTH 19.5 % (11.6-16.5); WHITE BLOOD COUNT 5.3 X10^3/uL (3.6-10.0)
[2021-10-19 06:22] LABS: ALANINE AMINOTRANSFERASE 8 Units/L (12-78); ALBUMIN 2.3 g/dL (3.4-5.0); ALKALINE PHOSPHATASE 121 Units/L (46-116); ASPARTATE AMINO TRANSFERASE 16 Units/L (15-37); BLOOD UREA NITROGEN 21 mg/dL (7-18); CALCIUM 8.2 mg/dL (8.5-10.1); CARBON DIOXIDE 26.1 mmol/L (21-32); CHLORIDE 99 mmol/L (98-107); COR CA(FOR HYPOALB) 9.6 mg/dL (8.5-10.1); COR NA(FOR HYPERGLY) 137 mmol/L (136-145); CREATININE 0.83 mg/dL (0.70-1.30); MAGNESIUM 1.6 mg/dL (1.7-2.9); SODIUM 134 mmol/L (136-145); TOTAL PROTEIN 7.1 g/dL (6.4-8.2); eGFR NON BLACK RACES > 60 (>60)
[2021-10-19 08:01] LABS: PLATELET MORPHOLOGY COMMENT NORMAL (NORMAL)
[2021-10-19] MEDS: ZOFRAN INJ 4 MG VIAL IVP PRN ×2 (08:22→19:01)
[2021-10-19] MEDS: NICOTINE PATCH TD SCH (08:22)
[2021-10-19] MEDS: LEVAQUIN PREMIX IV 500 MG 500 MG/100 ML BAG IV SCH (08:22)
[2021-10-19] MEDS: TORADOL 30 MG VIAL IVP PRN ×2 (08:28→19:00)
[2021-10-19] MEDS: FOLIC ACID TAB 1 MG PO SCH (12:39)
[2021-10-19] MEDS: PROTONIX TAB 40 MG PO SCH ×2 (12:40→20:37)
[2021-10-19] MEDS: PLAQUENIL PO SCH (12:40)
[2021-10-19] MEDS: ULTRAM PO PRN (12:41)
[2021-10-19] MEDS: PHENERGAN TAB 25 MG PO PRN ×2 (12:41→23:47)
[2021-10-19] MEDS: CYMBALTA PO SCH (20:37)
[2021-10-19] MEDS: HumuLIN 70/30 (NovoLIN 70/30) SC SCH (20:38)
[2021-10-19] MEDS: MAGNESIUM SULFATE 1 GRAM/100 mL PREMIX 1 G/100 ML BAG IV PRN ×2 (22:23→23:42)
[2021-10-20] MEDS: ZOFRAN INJ 4 MG VIAL IVP PRN ×2 (03:52→20:56)
[2021-10-20] MEDS: NS 1,000 ML IV 1,000 ML IV SCH ×2 (05:10→18:49)
[2021-10-20 05:22] LABS: BASOPHILS # (AUTO) 0.1 X10^3/uL (0.0-0.1); BASOPHILS % (AUTO) 1.2 % (0.2-1.0); EOSINOPHILS # (AUTO) 0.2 x10^3/uL (0.0-0.2); EOSINOPHILS % (AUTO) 4.2 % (0.9-2.9); HEMATOCRIT 28.8 % (42.0-54.0); HEMOGLOBIN 9.9 g/dL (13.5-18.0); LYMPHOCYTES # (AUTO) 1.2 X10^3/uL (1.3-2.9); LYMPHOCYTES % (AUTO) 21.4 % (21.0-51.0); MEAN CORPUSCULAR HEMOGLOBIN 26.9 pg (27.0-34.0); MEAN CORPUSCULAR HGB CONC 34.4 g/dL (33.0-35.0); MEAN CORPUSCULAR VOLUME 78.2 fL (80.0-100.0); MEAN PLATELET VOLUME 8.3 fL (7.4-11.0); MONOCYTES # (AUTO) 0.8 x10^3/uL (0.3-0.8); MONOCYTES % (AUTO) 14.5 % (0.0-13.0); NEUTROPHILS # (AUTO) 3.3 x10^3/uL (2.2-4.8); NEUTROPHILS % (AUTO) 58.7 % (42.0-75.0); RED BLOOD COUNT 3.68 X10^6/uL (4.7-6.0); RED CELL DISTRIBUTION WIDTH 19.1 % (11.6-16.5); WHITE BLOOD COUNT 5.6 X10^3/uL (3.6-10.0)
[2021-10-20 06:04] LABS: BLOOD UREA NITROGEN 11 mg/dL (7-18); CALCIUM 8.1 mg/dL (8.5-10.1); CARBON DIOXIDE 22.1 mmol/L (21-32); CHLORIDE 97 mmol/L (98-107); COR NA(FOR HYPERGLY) 135 mmol/L (136-145); CREATININE 0.73 mg/dL (0.70-1.30); SODIUM 132 mmol/L (136-145); eGFR NON BLACK RACES > 60 (>60)
[2021-10-20 06:30] LABS: MAGNESIUM 1.7 mg/dL (1.7-2.9)
[2021-10-20] MEDS: MAGNESIUM SULFATE 1 GRAM/100 mL PREMIX 1 G/100 ML BAG IV PRN (06:34)
[2021-10-20] MEDS: FOLIC ACID TAB 1 MG PO SCH ×2 (08:29→08:38)
[2021-10-20] MEDS: LINZESS PO SCH (08:29)
[2021-10-20] MEDS: LEVAQUIN PREMIX IV 500 MG 500 MG/100 ML BAG IV SCH (08:29)
[2021-10-20] MEDS: NICOTINE PATCH TD SCH (08:30)
[2021-10-20] MEDS: PLAQUENIL PO SCH ×2 (08:30→08:38)
[2021-10-20] MEDS: PROTONIX TAB 40 MG PO SCH ×3 (08:30→08:38)
[2021-10-20] MEDS: HumuLIN 70/30 (NovoLIN 70/30) SC SCH ×2 (09:07→23:43)
[2021-10-20 09:20] LABS: ALANINE AMINOTRANSFERASE 12 Units/L (12-78); ALBUMIN 2.2 g/dL (3.4-5.0); ALKALINE PHOSPHATASE 122 Units/L (46-116); ASPARTATE AMINO TRANSFERASE 17 Units/L (15-37); COR CA(FOR HYPOALB) 9.5 mg/dL (8.5-10.1); TOTAL PROTEIN 6.8 g/dL (6.4-8.2)
--- NOTE | 2021-10-20 11:13 | DR.PROGNOT ---
Hospital Progress Notes - Progress Note for Day of: Progress Note Date: 10/20/21 - Chief Complaint Chief Complaint: still c/o severe upper abdominal pain with nausea .. vomited rearlier . no BM today .. CT showed possible Gallstones . afebrile .. - Past Medical Family Social History Past Med/Fam/Surg Hx: No changes since H&P Allergies: Allergies No Known Drug Allergies Allergy (Verified 10/18/21 13:56) - Review Of Systems ROS: No change since H&P - Vital Signs Vital Signs: Temperature 97.8 F Pulse Rate [Left Radial] 76 Pulse Rate 75 Respiratory Rate 20 Blood Pressure [Right Arm] 156/92 Blood Pressure [Left Arm] 145/99 Blood Pressure 98/62 O2 Sat by Pulse Oximetry 100 - Physical Exam Oriented: Normal Eyes: Normal Ear: Normal Nose: Normal Respiratory: Normal Cardiovascular: Normal : Normal GI:Auscultation: Normal GI:Palpation: Normal GI: Tenderness: Epigastric (epigastric and upper abdominal tenderness .. BS hypoactive .) Speech Pattern: Clear, Appropriate - Laboratory and Diagnostics Result Diagrams: 10/20/21 04:37 10/20/21 04:37 Labs: 10/18/21 10:50 Urine,Clean Catch Urine Culture - Final Escherichia Coli Laboratory WBC 5.6 X10^3/uL (3.6-10.0) 10/20/21 04:37 RBC 3.68 X10^6/uL (4.7-6.0) L 10/20/21 04:37 Hgb 9.9 g/dL (13.5-18.0) L 10/20/21 04:37 Hct 28.8 % (42.0-54.0) L 10/20/21 04:37 MCV 78.2 fL (80.0-100.0) L 10/20/21 04:37 MCH 26.9 pg (27.0-34.0) L 10/20/21 04:37 MCHC 34.4 g/dL (33.0-35.0) 10/20/21 04:37 RDW 19.1 % (11.6-16.5) H 10/20/21 04:37 Plt Count 353 X10^3/uL (150.0-450.0) 10/20/21 04:37 Plt Count Comment Adequate (ADEQUATE) 10/19/21 05:45 MPV 8.3 fL (7.4-11.0) 10/20/21 04:37 Neut % (Auto) 58.7 % (42.0-75.0) 10/20/21 04:37 Lymph % (Auto) 21.4 % (21.0-51.0) 10/20/21 04:37 [place] % (Auto) 14.5 % (0.0-13.0) H 10/20/21 04:37 Eos % (Auto) 4.2 % (0.9-2.9) H 10/20/21 04:37 Baso % (Auto) 1.2 % (0.2-1.0) H 10/20/21 04:37 Neut # (Auto) 3.3 x10^3/uL (2.2-4.8) 10/20/21 04:37 Lymph # (Auto) 1.2 X10^3/uL (1.3-2.9) L 10/20/21 04:37 [place] # (Auto) 0.8 x10^3/uL (0.3-0.8) 10/20/21 04:37 Eos # (Auto) 0.2 x10^3/uL (0.0-0.2) 10/20/21 04:37 Baso # (Auto) 0.1 X10^3/uL (0.0-0.1) 10/20/21 04:37 Absolute Nucleated RBC 0.1 /100WBC 10/20/21 04:37 Total Counted 100 10/19/21 05:45 Neutrophils % (Manual) 62 % (39-76) 10/19/21 05:45 Lymphocytes % (Manual) 21 % (13-43) 10/19/21 05:45 Monocytes % (Manual) 16 % (4-9) H 10/19/21 05:45 Eosinophils % (Manual) 1 % (0-6) 10/19/21 05:45 Nucleated RBCs Cancelled 10/19/21 05:45 Atypical Lymphocytes Cancelled 10/19/21 05:45 Blast Cells Cancelled 10/19/21 05:45 Smudge Cells Cancelled 10/19/21 05:45 Toxic Granulation Cancelled 10/19/21 05:45 Dohle Bodies Cancelled 10/19/21 05:45 [place] Rods Cancelled 10/19/21 05:45 Plt Clumps, EDTA Cancelled 10/19/21 05:45 Giant Platelets Cancelled 10/19/21 05:45 Plt Morphology Comment Normal (NORMAL) 10/19/21 05:45 RBC Morphology Normal (NORMAL) 10/19/21 05:45 Dimorphic RBCs Cancelled 10/19/21 05:45 Polychromasia Cancelled 10/19/21 05:45 Hypochromasia Cancelled 10/19/21 05:45 Poikilocytosis Cancelled 10/19/21 05:45 Basophilic Stippling Cancelled 10/19/21 05:45 Anisocytosis Cancelled 10/19/21 05:45 Microcytosis Cancelled 10/19/21 05:45 Macrocytosis Cancelled 10/19/21 05:45 Spherocytes Cancelled 10/19/21 05:45 Pappenheimer Bodies Cancelled 10/19/21 05:45 Sickle Cells Cancelled 10/19/21 05:45 Target Cells Cancelled 10/19/21 05:45 Tear Drop Cells Cancelled 10/19/21 05:45 Ovalocytes Cancelled 10/19/21 05:45 Stomatocytes Cancelled 10/19/21 05:45 Helmet Cells Cancelled 10/19/21 05:45 [place] Bodies Cancelled 10/19/21 05:45 [place] Rings Cancelled 10/19/21 05:45 [place] Cells Cancelled 10/19/21 05:45 Crenated Cell Cancelled 10/19/21 05:45 Acanthocytes (Spur) Cancelled 10/19/21 05:45 Rouleaux Cancelled 10/19/21 05:45 Schistocytes Cancelled 10/19/21 05:45 PT 17.8 SECONDS (11.8-14.3) 10/19/21 05:45 INR Target Range - 10/19/21 05:45 INR 1.52 (0.8-1.3) H 10/19/21 05:45 APTT 31.1 SECONDS (22.9-36.5) 10/19/21 05:45 PTT Comment - 10/19/21 05:45 Sodium 132 mmol/L (136-145) L 10/20/21 04:37 Corrected Sodium 135 mmol/L (136-145) L 10/20/21 04:37 Potassium 3.9 mmol/L (3.5-5.1) 10/20/21 04:37 Chloride 97 mmol/L (98-107) L 10/20/21 04:37 Carbon Dioxide 22.1 mmol/L (21-32) 10/20/21 04:37 BUN 11 mg/dL (7-18) 10/20/21 04:37 Creatinine 0.73 mg/dL (0.70-1.30) 10/20/21 04:37 Est GFR (MDRD) Af Amer > 60 (>60) 10/20/21 04:37 Est GFR (MDRD) Non-Af > 60 (>60) 10/20/21 04:37 Glucose 222 mg/dL (65-99) H 10/20/21 04:37 POC Glucose (mg/dL) 207 mg/dL (65-99) H 10/20/21 05:26 Calcium 8.1 mg/dL (8.5-10.1) L 10/20/21 04:37 Corrected Calcium 9.5 mg/dL (8.5-10.1) 10/20/21 04:37 Magnesium 1.7 mg/dL (1.7-2.9) 10/20/21 04:37 Total Bilirubin 0.20 mg/dL (0.2-1.0) 10/20/21 04:37 AST 17 Units/L (15-37) 10/20/21 04:37 ALT 12 Units/L (12-78) 10/20/21 04:37 Alkaline Phosphatase 122 Units/L (46-116) H 10/20/21 04:37 Total Protein 6.8 g/dL (6.4-8.2) 10/20/21 04:37 Albumin 2.2 g/dL (3.4-5.0) L 10/20/21 04:37 Globulin 4.6 g/dL (2.5-4.5) H 10/20/21 04:37 Albumin/Globulin Ratio 0.5 Ratio (1.1-2.1) L 10/20/21 04:37 Amylase 73 Units/L (25-115) 10/18/21 08:50 Lipase 27 Units/L (73-393) L 10/18/21 08:50 Specimen Type Clean catch urine 10/18/21 10:50 Urine Color Yellow (YELLOW) 10/18/21 10:50 Urine Appearance Cloudy (CLEAR) 10/18/21 10:50 Urine pH 6.0 (5.0 - 8.0) 10/18/21 10:50 Ur Specific [place] 1.025 (1.000-1.030) 10/18/21 10:50 Urine Protein 2+ (NEGATIVE) 10/18/21 10:50 Urine Glucose (UA) Negative (NEGATIVE) 10/18/21 10:50 Urine Ketones 4+ (NEGATIVE) 10/18/21 10:50 Urine Blood 2+ (NEGATIVE) 10/18/21 10:50 Urine Nitrite Positive (NEGATIVE) 10/18/21 10:50 Urine Bilirubin Negative (NEGATIVE) 10/18/21 10:50 Urine Urobilinogen 1+ (NORMAL) 10/18/21 10:50 Ur Leukocyte Esterase 1+ (NEGATIVE) 10/18/21 10:50 Urine RBC 3-5 /HPF (0-3) A 10/18/21 10:50 Urine WBC 5-10 /HPF (0-5) A 10/18/21 10:50 Ur Squamous Epith Cells Negative /HPF (NEGATIVE) 10/18/21 10:50 Amorphous Sediment Trace /HPF (NEGATIVE) 10/18/21 10:50 Urine Bacteria 3+ /HPF (NEGATIVE) 10/18/21 10:50 Ur Culture Indicated? Yes/culture set up 10/18/21 10:50 Acetone, Semi-Quant Small (NEGATIVE) H 10/18/21 08:50 SARS CoV-2 RNA Rapid ALLIE Negative (NEGATIVE) 10/18/21 08:12 - Assessment and Plan 2: calculus cholecystitis . anemia .. to have GB US . possible lap cathleen .. - Problem Patient Problems: Patient Problems Abdominal pain (Acute) R10.9 Acute dehydration (Acute) E86.0 Acute hyperglycemia (Acute) R73.9 Cholelithiasis (Acute) K80.20 UTI (urinary tract infection) (Acute) N39.0
[2021-10-20] MEDS ORDERED: PHENERGAN INJ 25 MG IM PRN (11:18)
[2021-10-20] MEDS: DILAUDID INJ IVP PRN ×2 (11:36→20:57)
[2021-10-20] MEDS: BENTYL I.M. INJ 10 MG IM SCH ×2 (14:38→20:56)
[2021-10-20] MEDS: PROTONIX INJ 40 MG VIAL IVP SCH ×2 (14:39→20:56)
[2021-10-20] MEDS: CYMBALTA PO SCH (20:56)
[2021-10-21] MEDS: NS 1,000 ML IV 1,000 ML IV SCH ×3 (02:28→20:28)
[2021-10-21 06:15] LABS: BASOPHILS # (AUTO) 0.1 X10^3/uL (0.0-0.1); BASOPHILS % (AUTO) 1.3 % (0.2-1.0); EOSINOPHILS # (AUTO) 0.3 x10^3/uL (0.0-0.2); EOSINOPHILS % (AUTO) 5.4 % (0.9-2.9); HEMATOCRIT 28.8 % (42.0-54.0); HEMOGLOBIN 9.9 g/dL (13.5-18.0); LYMPHOCYTES # (AUTO) 1.4 X10^3/uL (1.3-2.9); LYMPHOCYTES % (AUTO) 26.3 % (21.0-51.0); MEAN CORPUSCULAR HEMOGLOBIN 27.2 pg (27.0-34.0); MEAN CORPUSCULAR HGB CONC 34.2 g/dL (33.0-35.0); MEAN CORPUSCULAR VOLUME 79.5 fL (80.0-100.0); MEAN PLATELET VOLUME 8.6 fL (7.4-11.0); MONOCYTES # (AUTO) 0.7 x10^3/uL (0.3-0.8); MONOCYTES % (AUTO) 13.7 % (0.0-13.0); NEUTROPHILS # (AUTO) 2.8 x10^3/uL (2.2-4.8); NEUTROPHILS % (AUTO) 53.3 % (42.0-75.0); RED BLOOD COUNT 3.62 X10^6/uL (4.7-6.0); WHITE BLOOD COUNT 5.2 X10^3/uL (3.6-10.0)
[2021-10-21 06:16] LABS: ALANINE AMINOTRANSFERASE 13 Units/L (12-78); ALBUMIN 2.3 g/dL (3.4-5.0); ALKALINE PHOSPHATASE 123 Units/L (46-116); ASPARTATE AMINO TRANSFERASE 21 Units/L (15-37); BLOOD UREA NITROGEN 5 mg/dL (7-18); CALCIUM 8.1 mg/dL (8.5-10.1); CARBON DIOXIDE 19.7 mmol/L (21-32); CHLORIDE 100 mmol/L (98-107); COR CA(FOR HYPOALB) 9.5 mg/dL (8.5-10.1); COR NA(FOR HYPERGLY) 137 mmol/L (136-145); MAGNESIUM 1.4 mg/dL (1.7-2.9); SODIUM 134 mmol/L (136-145); TOTAL PROTEIN 6.9 g/dL (6.4-8.2); eGFR NON BLACK RACES > 60 (>60)
[2021-10-21 06:59] LABS: PLATELET MORPHOLOGY COMMENT NORMAL (NORMAL)
[2021-10-21 07:00] LABS: ANISOCYTOSIS SLIGHT
[2021-10-21] MEDS: BENTYL I.M. INJ 10 MG IM SCH ×3 (07:54→20:45)
[2021-10-21] MEDS: DILAUDID INJ IVP PRN ×3 (07:55→20:22)
[2021-10-21] MEDS: ZOFRAN INJ 4 MG VIAL IVP PRN ×3 (07:56→20:22)
[2021-10-21] MEDS: FOLIC ACID TAB 1 MG PO SCH (09:07)
[2021-10-21] MEDS: NICOTINE PATCH TD SCH (09:08)
[2021-10-21] MEDS: PROTONIX INJ 40 MG VIAL IVP SCH ×2 (09:21→20:22)
[2021-10-21] MEDS: LEVAQUIN PREMIX IV 500 MG 500 MG/100 ML BAG IV SCH (09:21)
[2021-10-21] MEDS: PLAQUENIL PO SCH (09:21)
[2021-10-21] MEDS: HumuLIN 70/30 (NovoLIN 70/30) SC SCH (09:38)
[2021-10-21] MEDS: LINZESS PO SCH (10:06)
--- NOTE | 2021-10-21 10:23 | US ---
HISTORYABD PAIN, NO APPETITE the patient reports left flank pain.STUDYGALL BLADDERCOMPARISONNoneTECHNIQUEForty-five images made by the senior data modeler. [place] scale and color-flow images of the right upper quadrant were obtained.FINDINGSThe liver has normal echogenicity and size. No mass or intrahepatic biliary duct dilatation is present. The intrahepatic inferior vena cava was imaged.The visualized hepatic veins are patent with blood flow toward the right atrium. The portal vein is patent with blood flow toward the liver.The pancreatic head and proximal body are unremarkable. The remaining pancreas is not well identified due to overlying bowel gas.The gallbladder is normally distended with no stones, wall thickening, or pericholecystic fluid. No extrahepatic biliary duct dilatation; common duct is normal.The right kidney is normal in size and echogenicity. No hydronephrosis. Resistive index measures 0.7.IMPRESSION1. No significant abnormalityElectronically signed by: Deandre Milligan (Oct 21, 2021 10:21:44)
[2021-10-21] MEDS ORDERED: DIPRIVAN VIAL 20 ML ONE (11:20)
[2021-10-21] MEDS: MAGNESIUM SULFATE 1 GRAM/100 mL PREMIX 1 G/100 ML BAG IV PRN ×3 (12:42→17:36)
[2021-10-21] MEDS ORDERED: D50W ABBOJECT SYR ONE (14:05)
[2021-10-21] MEDS: CYMBALTA PO SCH (20:22)
[2021-10-22] MEDS: NS 1,000 ML IV 1,000 ML IV SCH ×2 (04:05→09:00)
[2021-10-22] MEDS: DILAUDID INJ IVP PRN ×2 (04:06→10:51)
[2021-10-22] MEDS: ZOFRAN INJ 4 MG VIAL IVP PRN ×2 (04:06→10:51)
[2021-10-22] MEDS: BENTYL I.M. INJ 10 MG IM SCH (04:06)
[2021-10-22 06:11] LABS: ALANINE AMINOTRANSFERASE 14 Units/L (12-78); ALBUMIN 2.3 g/dL (3.4-5.0); ALKALINE PHOSPHATASE 125 Units/L (46-116); ASPARTATE AMINO TRANSFERASE 21 Units/L (15-37); BLOOD UREA NITROGEN 2 mg/dL (7-18); CALCIUM 8.2 mg/dL (8.5-10.1); CARBON DIOXIDE 26.9 mmol/L (21-32); CHLORIDE 102 mmol/L (98-107); COR CA(FOR HYPOALB) 9.6 mg/dL (8.5-10.1); COR NA(FOR HYPERGLY) 138 mmol/L (136-145); CREATININE 0.67 mg/dL (0.70-1.30); SODIUM 136 mmol/L (136-145); TOTAL PROTEIN 6.8 g/dL (6.4-8.2); eGFR NON BLACK RACES > 60 (>60)
[2021-10-22 06:14] LABS: BASOPHILS % (AUTO) 0.7 % (0.2-1.0); EOSINOPHILS # (AUTO) 0.3 x10^3/uL (0.0-0.2); EOSINOPHILS % (AUTO) 4.7 % (0.9-2.9); HEMATOCRIT 29.6 % (42.0-54.0); HEMOGLOBIN 10.1 g/dL (13.5-18.0); LYMPHOCYTES # (AUTO) 1.3 X10^3/uL (1.3-2.9); LYMPHOCYTES % (AUTO) 22.6 % (21.0-51.0); MEAN CORPUSCULAR HEMOGLOBIN 26.7 pg (27.0-34.0); MEAN CORPUSCULAR VOLUME 78.4 fL (80.0-100.0); MEAN PLATELET VOLUME 7.4 fL (7.4-11.0); MONOCYTES # (AUTO) 0.7 x10^3/uL (0.3-0.8); MONOCYTES % (AUTO) 12.4 % (0.0-13.0); NEUTROPHILS # (AUTO) 3.5 x10^3/uL (2.2-4.8); NEUTROPHILS % (AUTO) 59.6 % (42.0-75.0); RED BLOOD COUNT 3.77 X10^6/uL (4.7-6.0); RED CELL DISTRIBUTION WIDTH 19.1 % (11.6-16.5); WHITE BLOOD COUNT 5.9 X10^3/uL (3.6-10.0)
[2021-10-22] MEDS: PROTONIX INJ 40 MG VIAL IVP SCH (08:33)
[2021-10-22] MEDS: LINZESS PO SCH (08:33)
[2021-10-22] MEDS: LEVAQUIN PREMIX IV 500 MG 500 MG/100 ML BAG IV SCH (08:34)
[2021-10-22] MEDS: FOLIC ACID TAB 1 MG PO SCH (08:34)
[2021-10-22] MEDS: NICOTINE PATCH TD SCH (08:35)
[2021-10-22] MEDS: PLAQUENIL PO SCH (08:37)
[2021-10-22 12:33] VITALS: BP 141/76
== END 2021-10-22 13:35 | disposition home or self-care (01) ==
LOC: MED/SURG 07:59 → ER 07:59 → MED/SURG 13:52
PROVIDERS: ADMIT Obstetrics & Gynecology Obstetrics; ATTEND Internal Medicine
DX: B96.29 Other Escherichia coli [E. coli] as the cause of diseases classified elsewhere; K29.00 Acute gastritis without bleeding; E86.0 Dehydration; Z72.0 Tobacco use; M06.9 Rheumatoid arthritis, unspecified; R11.2 Nausea with vomiting, unspecified; Z20.822 Contact with and (suspected) exposure to COVID-19; N39.0 Urinary tract infection, site not specified; I10 Essential (primary) hypertension; E10.65 Type 1 diabetes mellitus with hyperglycemia; K21.9 Gastro-esophageal reflux disease without esophagitis; R79.1 Abnormal coagulation profile; K59.09 Other constipation; F12.90 Cannabis use, unspecified, uncomplicated; R10.84 Generalized abdominal pain

== ENCOUNTER 2021-10-26 07:45 | Inpatient (IN) ==
[2021-10-26] MEDS ORDERED: NS 1,000 ML IV 1,000 ML ONE ×3 (08:07→10:41)
[2021-10-26] MEDS ORDERED: NS 1,000 ML IV 1,000 ML IV ONE ×2 (08:11→08:28)
[2021-10-26 08:19] VITALS: BMI 15.9
[2021-10-26] MEDS ORDERED: ZOFRAN INJ 4 MG VIAL IVP ONE (08:28)
[2021-10-26] MEDS ORDERED: ZOFRAN INJ 4 MG VIAL ONE (08:32)
--- NOTE | 2021-10-26 08:38 | DR.N/VMALE ---
HPI Time Seen Time Seen by Provider: 10/26/21 08:16 Primary Care Physician Primary Care Physician: DR CRAIN HPI Comment HPI Comment: A 45 y/o male presents with nausea and vomiting x 4 days. He is not keeping anything down. His mother states that he wasadmited here for same from 10/19/21 and d/c home on 10/22/21.He denies fever or diarrhea. During the referenced hospital stay, he had an EGD that he was informed he has "stomach inflammation." His PPI was then increased from daily to twice a day dosage. Complaints Chief Complaint:: "CONSTANT N/V X 4 DAYS. I HAVEN'T BEEN ABLE TO KEEP ANYTHING DOWN. I AM HAVING PAIN IN THE LEFT UPPER SIDE OF MY STOMACH." ACCORDING TO THE PT MOTHER HE WAS RECENTLY HERE FOR THIS SAME PROBLEM AND HIS SYMPTOMS WORSENED AGAIN ON WEDNESDAY. PER THE PT MOTHER SHE HAS BEEN GIVING HIM PHENERAN SUPPOSITORY AT HOME EVERY 6 HOURS AND IT IS NOT HELPING. Reviewed Nurses Notes Reviewed: Yes Source History Provided: Patient and Family Member Mode of Arrival Mode of Arrival: Wheelchair Timing Onset of Chief Complaint: 10/23/21 Context Onset: After Eating and After Drinking Recent: None Possible Ingestion: Unknown History of: Diabetes PMH PMH Past Medical History: Yes Past Medical History: Anxiety, Arthritis, Diabetes, GERD, Hypertension and Kidney Stones Past Medical History Comment: RHEUMATOID ARTHRITIS, GASTRITIS Past Surgical History: Yes Surgical History: Lithotripsy Family History History of Family Medical Conditions: Yes Family Medical History: Cancer Social History Does patient currently use any type of tobacco product: Yes Have you used tobacco products in the last 12 months: Yes Type of Tobacco Use: Cigarettes Does any household member use tobacco: No Alcohol Use: None Do you use any recreational Drugs:: Yes (THC) Lives With: Mom Lives Where: Home Infectious screening In the last 2 months have you had wt loss of >10#?: NO Have you had fever, night sweats or hemotysis?: No Have you traveled outside the country in the last 6 months?: No Isolation: Standard ROS Review of Systems Constitutional: No Symptoms Reported Eyes: No Symptoms Reported ENTM: No Symptoms Reported Respiratoy: No Symptoms Reported Cardiovascular: No Symptoms Reported Gastrointestinal/Abdominal: Nausea and Vomiting Genitourinary: No Symptoms Reported Neurological: No Symptoms Reported Musculoskeletal: No Symptoms Reported Integumentary: No Symptoms Reported Hematologic/Lymphatic: No Symptoms Reported Endocrine: No Symptoms Reported Psychiatric: No Symptoms Reported All Other Systems: Reviewed and Negative PE Vital Signs Vitals: Temperature 97.0 F Pulse Rate 86 Respiratory Rate 18 Blood Pressure [Right Arm] 141/76 Blood Pressure 138/85 O2 Sat by Pulse Oximetry 100 General Limitations: No Limitations General Appearance: Alert, In No Apparent Distress and Cachectic Head Head Exam: Normal Inspection, Atraumatic and Normocephalic Eyes Eye exam: Normal Appearance and EOMI ENT ENT Exam: Normal Exam, Normal Oropharynx, Normal External Ear Exam and Mucous Membranes Moist Neck Neck Exam: Normal Inspection, Full ROM and Trachea Midline Chest Chest Inspection: Normal Inspection and Symmetric Chest Wall Rise Respiratory Respiratory Exam: Normal Lung Sounds Bilat Respiratory Exam: Bilateral: Clear to Auscultation Cardiovascular Cardiovascular Exam: Normal Rhythm, Tachycardia, +S1 and +S2 Abdominal Exam Abdominal Exam: Normal Inspection, Normal Bowel Sounds and Soft Rectal Rectal Exam: Deferred Exam: Male: Deferred Extremities Extremities Exam: Normal Inspection and Full ROM Back Back Exam: Normal Inspection and Full ROM Neurologic Neurological Exam: Alert and Oriented X3 Psychiatric Psychiatric Exam: Normal Affect and Normal Mood Skin Skin Exam: Dry, Intact and Normal Color COURSE Treatment Treatment: diagnostic findings were discussed with the pt. and his motherr (who was at bedside). I also spoke with on-call provider- Dr. Herman and she agrees with admission recommendation for the pt. Reevaluation 1st: Unchanged Education/Counseling Education/Counseling: Patient, Family, Education and Counseling Educated On: Treatment, Diagnosis, Prognosis and Needs for Follow Up ROR Labs Reviewed Laboratory Results Reviewed?: Yes Result Diagrams: 10/26/21 08:15 10/26/21 09:40 Laboratory: WBC 10.3 X10^3/uL (3.6-10.0) H 10/26/21 08:15 RBC 5.42 X10^6/uL (4.7-6.0) 10/26/21 08:15 Hgb 14.6 g/dL (13.5-18.0) 10/26/21 08:15 Hct 44.0 % (42.0-54.0) 10/26/21 08:15 MCV 81.3 fL (80.0-100.0) 10/26/21 08:15 MCH 27.0 pg (27.0-34.0) 10/26/21 08:15 MCHC 33.2 g/dL (33.0-35.0) 10/26/21 08:15 RDW 20.7 % (11.6-16.5) H 10/26/21 08:15 Plt Count 757 X10^3/uL (150.0-450.0) H 10/26/21 08:15 Plt Count Comment Increased (ADEQUATE) 10/26/21 08:15 MPV 8.0 fL (7.4-11.0) 10/26/21 08:15 Neut % (Auto) 74.4 % (42.0-75.0) 10/26/21 08:15 Lymph % (Auto) 13.1 % (21.0-51.0) L 10/26/21 08:15 [place] % (Auto) 9.9 % (0.0-13.0) 10/26/21 08:15 Eos % (Auto) 0.6 % (0.9-2.9) L 10/26/21 08:15 Baso % (Auto) 2.0 % (0.2-1.0) H 10/26/21 08:15 Neut # (Auto) 7.7 x10^3/uL (2.2-4.8) H 10/26/21 08:15 Lymph # (Auto) 1.4 X10^3/uL (1.3-2.9) 10/26/21 08:15 [place] # (Auto) 1.0 x10^3/uL (0.3-0.8) H 10/26/21 08:15 Eos # (Auto) 0.1 x10^3/uL (0.0-0.2) 10/26/21 08:15 Baso # (Auto) 0.2 X10^3/uL (0.0-0.1) H 10/26/21 08:15 Absolute Nucleated RBC 0.1 /100WBC 10/26/21 08:15 Plt Morphology Comment Normal (NORMAL) 10/26/21 08:15 RBC Morphology Abnormal (NORMAL) 10/26/21 08:15 Anisocytosis 1+ A 10/26/21 08:15 Sample Site Lra 10/26/21 09:07 ABG pH 7.270 (7.35-7.45) L 10/26/21 09:07 ABG pCO2 25.0 mmHg (35.0-45.0) L 10/26/21 09:07 ABG pO2 139.0 mmHg (80.0-100.0) H 10/26/21 09:07 ABG HCO3 11.5 mmol/L (22-26) L* 10/26/21 09:07 ABG O2 Saturation 99.0 % (90-100) 10/26/21 09:07 ABG Base Excess -13.7 mmol/L (-2.0-2.0) L 10/26/21 09:07 Freddy Test Pos 10/26/21 09:07 A-a Gradient -21.0 mmHg 10/26/21 09:07 FiO2 21.0 10/26/21 09:07 Blood Gas Comments Pt ronny well eb 10/26/21 09:07 Sodium 130 mmol/L (136-145) L 10/26/21 08:15 Corrected Sodium 139 mmol/L (136-145) 10/26/21 08:15 Potassium 5.2 mmol/L (3.5-5.1) H 10/26/21 08:15 Chloride 90 mmol/L (98-107) L 10/26/21 08:15 Carbon Dioxide 17.9 mmol/L (21-32) L 10/26/21 08:15 BUN 16 mg/dL (7-18) 10/26/21 08:15 Creatinine 1.51 mg/dL (0.70-1.30) H 10/26/21 08:15 Est GFR (MDRD) Af Amer > 60 (>60) 10/26/21 08:15 Est GFR (MDRD) Non-Af 54 (>60) L 10/26/21 08:15 Glucose 458 mg/dL (65-99) H 10/26/21 09:40 POC Glucose (mg/dL) 449 mg/dL (65-99) H 10/26/21 09:28 Lactic Acid 4.3 mmol/L (0.4-2.0) H 10/26/21 08:15 Calcium 10.9 mg/dL (8.5-10.1) H 10/26/21 08:15 Corrected Calcium TNP 10/26/21 08:15 Total Bilirubin 0.50 mg/dL (0.2-1.0) 10/26/21 08:15 AST 11 Units/L (15-37) L 10/26/21 08:15 ALT 14 Units/L (12-78) 10/26/21 08:15 Alkaline Phosphatase 189 Units/L (46-116) H 10/26/21 08:15 Total Protein 11.0 g/dL (6.4-8.2) H 10/26/21 08:15 Albumin 3.9 g/dL (3.4-5.0) 10/26/21 08:15 Globulin 7.1 g/dL (2.5-4.5) H 10/26/21 08:15 Albumin/Globulin Ratio 0.5 Ratio (1.1-2.1) L 10/26/21 08:15 Amylase 74 Units/L (25-115) 10/26/21 08:15 Lipase 34 Units/L (73-393) L 10/26/21 08:15 Acetone, Semi-Quant Small (NEGATIVE) H 10/26/21 08:15 SARS-CoV-2 (PCR) Negative (NEGATIVE) 10/26/21 09:20 XRAY XRAY Interpreted by: Self X-ray Results: AAS: There is no cardiomegaly, infiltrates noted on the chest. The abdomen hasa pausity of colonic gases. Radiologist report is pending. EKG Rate: 65 [place]: Normal Rhythm: NSR Block: None Hypertrophy: LVH ST: Normal Opioid Opioid Risk Tool Age (Jose box if 16-45): Yes History of Preadolescent Sexual Abuse: No Total: 1 Total Score Risk Category: Low Risk Copyright: Antonio GAMBLE predicting aberrant behaviors Discharge Plan Diagnosis Discharge Problem: DKA, type 2, Acidosis, lactic, Electrolyte abnormality, Rheumatoid arthritis Discharge Plan Patient Disposition: 09 ADMITTED INPATIENT Condition: Stable Prescriptions: No Action promethazine 25 mg Tablet 25 mg PO Q8H PRN sucralfate [Carafate] 1 gram Tablet 1 g PO QID PRN diclofenac sodium 75 mg Tablet,Delayed Release (Dr/Ec) 75 mg PO DAILY pantoprazole [Protonix] 40 mg tablet,delayed release (DR/EC) 40 mg PO HS folic acid 1 mg Tablet 1 mg PO QDAY Rx Instructions: TAKE ONE TABLET BY MOUTH ONCE DAILY AND SKIP DAY ON TAKING MTX hydroxychloroquine [Plaquenil] 200 mg Tablet 200 mg PO BID duloxetine [Cymbalta] 30 mg Capsule,Delayed Release(Dr/Ec) 30 mg PO QHS Novolin 70-30 FlexPen U-100 100 unit/mL (70-30) Insulin Pen 40 unit SUBCUT BID doxycycline hyclate 100 mg Capsule 100 mg PO BID Qty: 20 0RF Health Concerns: Post Hospitalization: new medications and changes needed to prevent readmission or further decline. Pt educated and given instructions on all concerns. Plan of Treatment: Continue with present treatment and follow up plan. Pt is to keep follow up appointment as instructed and take medications as ordered. Orders to Discharge Patient Discharge Orders: Transfer (Routine); Ordered 10/26/21 Ordered By: LETICIA MIRZA Follow ups/Referrals Follow ups/Referrals: NADEGE PERALES [Primary Care Provider] - 3 days
[2021-10-26 08:47] LABS: BASOPHILS # (AUTO) 0.2 X10^3/uL (0.0-0.1); EOSINOPHILS # (AUTO) 0.1 x10^3/uL (0.0-0.2); EOSINOPHILS % (AUTO) 0.6 % (0.9-2.9); HEMOGLOBIN 14.6 g/dL (13.5-18.0); LYMPHOCYTES # (AUTO) 1.4 X10^3/uL (1.3-2.9); LYMPHOCYTES % (AUTO) 13.1 % (21.0-51.0); MEAN CORPUSCULAR HGB CONC 33.2 g/dL (33.0-35.0); MEAN CORPUSCULAR VOLUME 81.3 fL (80.0-100.0); MONOCYTES % (AUTO) 9.9 % (0.0-13.0); NEUTROPHILS # (AUTO) 7.7 x10^3/uL (2.2-4.8); NEUTROPHILS % (AUTO) 74.4 % (42.0-75.0); RED BLOOD COUNT 5.42 X10^6/uL (4.7-6.0); RED CELL DISTRIBUTION WIDTH 20.7 % (11.6-16.5); WHITE BLOOD COUNT 10.3 X10^3/uL (3.6-10.0)
[2021-10-26 08:52] LABS: ALANINE AMINOTRANSFERASE 14 Units/L (12-78); ALBUMIN 3.9 g/dL (3.4-5.0); ALKALINE PHOSPHATASE 189 Units/L (46-116); AMYLASE 74 Units/L (25-115); ASPARTATE AMINO TRANSFERASE 11 Units/L (15-37); BLOOD UREA NITROGEN 16 mg/dL (7-18); CALCIUM 10.9 mg/dL (8.5-10.1); CARBON DIOXIDE 17.9 mmol/L (21-32); CHLORIDE 90 mmol/L (98-107); COR NA(FOR HYPERGLY) 139 mmol/L (136-145); CREATININE 1.51 mg/dL (0.70-1.30); LIPASE 34 Units/L (73-393); SODIUM 130 mmol/L (136-145); eGFR NON BLACK RACES 54 (>60)
[2021-10-26 08:54] LABS: LACTIC ACID 4.3 mmol/L (0.4-2.0)
[2021-10-26 09:09] LABS: ANISOCYTOSIS 1+; PLATELET MORPHOLOGY COMMENT NORMAL (NORMAL)
[2021-10-26 09:11] LABS: ABG BASE EXCESS -13.7 mmol/L (-2.0-2.0)
[2021-10-26 09:12] LABS: ABG ALLEN TEST POS; ABG HCO3 11.5 mmol/L (22-26)
[2021-10-26] MEDS ORDERED: MYXREDLIN 100 UNIT/100 ML BAG 100 UNIT/100 ML PLAST..BAG IV ONE (09:35)
--- NOTE | 2021-10-26 10:41 | RAD ---
HISTORYLeft upper quadrant painSTUDYAbdomen series with PA chest three viewsCOMPARISONCT abdomen 10/18/2021FINDINGSPA chest: No acute findings.Abdomen series: Supine/erect views demonstrate normal gas pattern without evidence for free air, obstruction, mass formation or organ enlargement. No urinary calcification identified.IMPRESSIONNormal exam.Electronically signed by: GLORIA ESTEVEZ (Oct 26, 2021 10:38:54)
[2021-10-26] MEDS: MYXREDLIN 100 UNIT/100 ML BAG 100 UNIT/100 ML PLAST..BAG IV PRN (10:42)
[2021-10-26] MEDS ORDERED: SODIUM BICARBONATE 8.4% INJ ADULT ONE (10:45)
[2021-10-26] MEDS: SODIUM BICARBONATE 8.4% INJ ADULT IVP ONE ×2 (10:46→10:54)
[2021-10-26 10:58] LABS: BLOOD UREA NITROGEN 15 mg/dL (7-18); eGFR NON BLACK RACES > 60 (>60)
[2021-10-26] MEDS ORDERED: NS 1,000 ML IV 1,000 ML IV SCH (11:00)
[2021-10-26 11:13] LABS: BILIRUBIN,URINE NEGATIVE (NEGATIVE); BLOOD/HEMOGLOBIN,URINE 1+ (NEGATIVE); CALCIUM 9.4 mg/dL (8.5-10.1); CHLORIDE 97 mmol/L (98-107); COR NA(FOR HYPERGLY) 139 mmol/L (136-145); CREATINE KINASE 31 Units/L (39-308); CREATININE 1.24 mg/dL (0.70-1.30); GLUCOSE, URINE 4+ (NEGATIVE); KETONES,URINE 4+ (NEGATIVE); LEUKOCYTE ESTERASE ,URINE NEGATIVE (NEGATIVE); NITRITES,URINE NEGATIVE (NEGATIVE); PROTEIN,URINE 2+ (NEGATIVE); SODIUM 130 mmol/L (136-145); UROBILINOGEN,URINE NORMAL (NORMAL)
[2021-10-26 11:20] LABS: APPEARANCE,URINE CLEAR (CLEAR); BACTERIA,URINE NEGATIVE /HPF (NEGATIVE); COLOR,URINE YELLOW (YELLOW); RBC,URINE NONE SEEN /HPF (0-3); SQUAMOUS EPITHELIAL CELL,UR NEGATIVE /HPF (NEGATIVE)
[2021-10-26] MEDS ORDERED: ZOFRAN INJ 4 MG VIAL IVP PRN (12:34)
[2021-10-26] MEDS ORDERED: SODIUM BICARBONATE 8.4% INJ ADULT IVP ONE (12:46)
[2021-10-26] MEDS ORDERED: PROTONIX INJ 40 MG VIAL IVP SCH (13:00)
[2021-10-26] MEDS: NORCO 5/325 MG TAB PO PRN ×2 (13:03→17:15)
[2021-10-26] MEDS: ZOFRAN INJ 4 MG VIAL IVP PRN ×3 (13:05→21:05)
[2021-10-26] MEDS ORDERED: LEVSIN/MAALOX/LIDOC VISC PO PRN (14:14)
[2021-10-26] MEDS: NS 1,000 ML IV 1,000 ML IV SCH ×2 (15:08→20:48)
[2021-10-26 15:15] LABS: BLOOD UREA NITROGEN 13 mg/dL (7-18); CALCIUM 9.2 mg/dL (8.5-10.1); CARBON DIOXIDE 23.2 mmol/L (21-32); CHLORIDE 102 mmol/L (98-107); COR NA(FOR HYPERGLY) 139 mmol/L (136-145); CREATININE 1.13 mg/dL (0.70-1.30); SODIUM 137 mmol/L (136-145); eGFR NON BLACK RACES > 60 (>60)
[2021-10-26] MEDS: FOLIC ACID TAB 1 MG PO SCH (15:24)
[2021-10-26] MEDS: CARAFATE PO SCH ×3 (15:24→20:13)
[2021-10-26 17:58] LABS: BLOOD UREA NITROGEN 12 mg/dL (7-18); CALCIUM 8.9 mg/dL (8.5-10.1); CARBON DIOXIDE 23.7 mmol/L (21-32); CHLORIDE 102 mmol/L (98-107); COR NA(FOR HYPERGLY) 138 mmol/L (136-145); CREATININE 0.97 mg/dL (0.70-1.30); SODIUM 137 mmol/L (136-145); eGFR NON BLACK RACES > 60 (>60)
[2021-10-26] MEDS: PLAQUENIL PO SCH (20:13)
[2021-10-26] MEDS: CYMBALTA PO SCH (20:13)
[2021-10-26] MEDS ORDERED: PROTONIX TAB 40 MG PO SCH (21:00)
--- NOTE | 2021-10-26 21:01 | DR.H&P ---
H&P History & Physical for Day of: H&P Date: 10/26/21 Chief Complaint Chief Complaint: abdominal pain, hyperglycemia Allergies Allergies Allergy/AdvReac Type Severity Reaction Status Date / Time No Known Drug Allergies Allergy Verified 10/18/21 13:56 History of Present Illness History of Present Illness: Mr Salter is a 45 y/o male with a PMH of gastritis, GERD, HTN, anxiety, chronic pain disorder and uncontrolled diabetes presented with decreased oral intake, abdominal pain and hyperglycemia. Patient was recently discharged on 10/22/21 with similar symptoms. He had extensive work up including EGD which showed gastritis. Patient was sent home on protonix BID and carafate. He states he continued to have pain and was not able to eat anything. He reports not able to keep anything down. His FSBG were elevated above 500. He continues to have epigastric pain. In the ER, he was noted to have BG 477, C02 12, LA 4.3. Serum acetone present. Patient was admitted in the ICU with DKA protocol. He was started on aggressive IV hydration, anti-emetics and pain control. He also received IV bicarb in the ER. Labs/imaging reviewed 10/21/21 EGD Moderate gastritis involving the antrum, otherwise normal exam Recent CTAP, U/S GB: no gallstones Plan: continue DKA protocol with insulin drip. Continue IVF at 250cc/hr. Start IV protonix BID, carafate and GI cocktail. Continue anti-emetics and pain control. Patient states he does not want to eat anything right now and wants to remain NPO until his symptoms improve. He had recent EGD which showed moderate gastritis. Monitor BMP every 4 hrs until acidosis resolves. Monitor AM labs/imaging. Time spent for clinical assessment including reviewing labs/imaging, physical exam, decision making and documentation greater than 45 mins. Past Medical History Past Medical History: Anxiety, Arthritis, Diabetes, GERD, Hypertension and Kidney Stones Additional Medical History: RA Past Surgical History Surgical History: Lithotripsy Family History Family Medical History: Cancer, [place], Coronary Artery Disease, Sudden Cardiac and Hypertension Social History Does patient currently use any type of tobacco product: Yes Have you used tobacco products in the last 12 months: Yes Type of Tobacco Use: Cigarettes How many years tobacco product used: 30 Does any household member use tobacco: No Alcohol Use: None Drug Use: Marijuana Medications Home Medications: No Known Drug Allergies Allergy (Verified 10/18/21 13:56) CONTINUE taking the following medications diclofenac sodium 75 mg tablet,delayed release 75 mg PO DAILY 10/26/21 [History] pantoprazole 40 mg tablet,delayed release (Protonix) 40 mg PO HS 10/26/21 [History] promethazine 25 mg tablet 25 mg PO Q8H PRN 10/26/21 [History] sucralfate 1 gram tablet (Carafate) 1 g PO QID PRN 10/26/21 [History] Labs Result Diagrams: 10/26/21 08:15 10/26/21 17:40 Labs: Laboratory WBC 10.3 X10^3/uL (3.6-10.0) H 10/26/21 08:15 RBC 5.42 X10^6/uL (4.7-6.0) 10/26/21 08:15 Hgb 14.6 g/dL (13.5-18.0) 10/26/21 08:15 Hct 44.0 % (42.0-54.0) 10/26/21 08:15 MCV 81.3 fL (80.0-100.0) 10/26/21 08:15 MCH 27.0 pg (27.0-34.0) 10/26/21 08:15 MCHC 33.2 g/dL (33.0-35.0) 10/26/21 08:15 RDW 20.7 % (11.6-16.5) H 10/26/21 08:15 Plt Count 757 X10^3/uL (150.0-450.0) H 10/26/21 08:15 Plt Count Comment Increased (ADEQUATE) 10/26/21 08:15 MPV 8.0 fL (7.4-11.0) 10/26/21 08:15 Neut % (Auto) 74.4 % (42.0-75.0) 10/26/21 08:15 Lymph % (Auto) 13.1 % (21.0-51.0) L 10/26/21 08:15 [place] % (Auto) 9.9 % (0.0-13.0) 10/26/21 08:15 Eos % (Auto) 0.6 % (0.9-2.9) L 10/26/21 08:15 Baso % (Auto) 2.0 % (0.2-1.0) H 10/26/21 08:15 Neut # (Auto) 7.7 x10^3/uL (2.2-4.8) H 10/26/21 08:15 Lymph # (Auto) 1.4 X10^3/uL (1.3-2.9) 10/26/21 08:15 [place] # (Auto) 1.0 x10^3/uL (0.3-0.8) H 10/26/21 08:15 Eos # (Auto) 0.1 x10^3/uL (0.0-0.2) 10/26/21 08:15 Baso # (Auto) 0.2 X10^3/uL (0.0-0.1) H 10/26/21 08:15 Absolute Nucleated RBC 0.1 /100WBC 10/26/21 08:15 Plt Morphology Comment Normal (NORMAL) 10/26/21 08:15 RBC Morphology Abnormal (NORMAL) 10/26/21 08:15 Anisocytosis 1+ A 10/26/21 08:15 Sample Site Lra 10/26/21 09:07 ABG pH 7.270 (7.35-7.45) L 10/26/21 09:07 ABG pCO2 25.0 mmHg (35.0-45.0) L 10/26/21 09:07 ABG pO2 139.0 mmHg (80.0-100.0) H 10/26/21 09:07 ABG HCO3 11.5 mmol/L (22-26) L* 10/26/21 09:07 ABG O2 Saturation 99.0 % (90-100) 10/26/21 09:07 ABG Base Excess -13.7 mmol/L (-2.0-2.0) L 10/26/21 09:07 Freddy Test Pos 10/26/21 09:07 A-a Gradient -21.0 mmHg 10/26/21 09:07 FiO2 21.0 10/26/21 09:07 Blood Gas Comments Pt ronny well eb 10/26/21 09:07 Sodium 137 mmol/L (136-145) 10/26/21 17:40 Corrected Sodium 138 mmol/L (136-145) 10/26/21 17:40 Potassium 3.5 mmol/L (3.5-5.1) 10/26/21 17:40 Chloride 102 mmol/L (98-107) 10/26/21 17:40 Carbon Dioxide 23.7 mmol/L (21-32) 10/26/21 17:40 BUN 12 mg/dL (7-18) 10/26/21 17:40 Creatinine 0.97 mg/dL (0.70-1.30) 10/26/21 17:40 Est GFR (MDRD) Af Amer > 60 (>60) 10/26/21 17:40 Est GFR (MDRD) Non-Af > 60 (>60) 10/26/21 17:40 Glucose 145 mg/dL (65-99) H 10/26/21 17:40 POC Glucose (mg/dL) 190 mg/dL (65-99) H 10/26/21 20:14 Lactic Acid 2.6 mmol/L (0.4-2.0) H 10/26/21 14:45 Calcium 8.9 mg/dL (8.5-10.1) 10/26/21 17:40 Corrected Calcium TNP 10/26/21 08:15 Total Bilirubin 0.50 mg/dL (0.2-1.0) 10/26/21 08:15 AST 11 Units/L (15-37) L 10/26/21 08:15 ALT 14 Units/L (12-78) 10/26/21 08:15 Alkaline Phosphatase 189 Units/L (46-116) H 10/26/21 08:15 Creatine Kinase 31 Units/L (39-308) L 10/26/21 10:28 Troponin I High Sens 4.9 ng/L (4.0-60.0) 10/26/21 10:28 Total Protein 11.0 g/dL (6.4-8.2) H 10/26/21 08:15 Albumin 3.9 g/dL (3.4-5.0) 10/26/21 08:15 Globulin 7.1 g/dL (2.5-4.5) H 10/26/21 08:15 Albumin/Globulin Ratio 0.5 Ratio (1.1-2.1) L 10/26/21 08:15 Amylase 74 Units/L (25-115) 10/26/21 08:15 Lipase 34 Units/L (73-393) L 10/26/21 08:15 Specimen Type Clean catch urine 10/26/21 10:28 Urine Color Yellow (YELLOW) 10/26/21 10:28 Urine Appearance Clear (CLEAR) 10/26/21 10:28 Urine pH 5.0 (5.0 - 8.0) 10/26/21 10:28 Ur Specific [place] 1.020 (1.000-1.030) 10/26/21 10:28 Urine Protein 2+ (NEGATIVE) 10/26/21 10:28 Urine Glucose (UA) 4+ (NEGATIVE) 10/26/21 10:28 Urine Ketones 4+ (NEGATIVE) 10/26/21 10:28 Urine Blood 1+ (NEGATIVE) 10/26/21 10:28 Urine Nitrite Negative (NEGATIVE) 10/26/21 10:28 Urine Bilirubin Negative (NEGATIVE) 10/26/21 10:28 Urine Urobilinogen Normal (NORMAL) 10/26/21 10:28 Ur Leukocyte Esterase Negative (NEGATIVE) 10/26/21 10:28 Urine RBC None seen /HPF (0-3) 10/26/21 10:28 Urine WBC None seen /HPF (0-5) 10/26/21 10:28 Ur Squamous Epith Cells Negative /HPF (NEGATIVE) 10/26/21 10:28 Urine Bacteria Negative /HPF (NEGATIVE) 10/26/21 10:28 Ur Culture Indicated? No/not indicated 10/26/21 10:28 Acetone, Semi-Quant Small (NEGATIVE) H 10/26/21 08:15 SARS-CoV-2 (PCR) Negative (NEGATIVE) 10/26/21 09:20 Review of Systems Constitutional: Weakness and Malaise ENT: No Symptoms Reported Respiratory: No Symptoms Reported Cardiovascular: No Symptoms Reported Gastrointestinal: Nausea, Vomiting and Abdominal Pain Genitourinary: No Symptoms Reported Musculoskeletal: Back Pain Skin: No Symptoms Reported Neurological: No Symptoms Reported Physical Exam Vital Signs: Temperature 98.0 F Pulse Rate [Bilateral Radial] 89 Pulse Rate 95 Respiratory Rate 17 Blood Pressure [Right Arm] 111/74 Blood Pressure 113/80 O2 Sat by Pulse Oximetry 100 Oriented: Normal Eyes: Normal Nose: Normal Throat: Dry Respiratory: Diminished Throughout Cardiovascular: Normal Auscultation: Bowel Sounds: Normal Palpation: Other (epigastric tenderness present ) Tenderness: Epigastric, Periumbilical and Moderate Skin: Decreased Turgur Musculoskeletal: Normal Psychiatric: Anxiety Mood Description: Anxious Affect: Normal Speech Pattern: Clear and Appropriate Assessment/Plan (1) Vomiting and diarrhea: Status: Acute (2) Abdominal pain: Qualifiers: Qualified Code(s): R10.9 - Unspecified abdominal pain Status: Acute (3) Acute dehydration: Status: Acute (4) Acute hyperglycemia: Status: Acute (5) DKA, type 2: Status: Acute (6) Acidosis, lactic: Status: Acute (7) Electrolyte abnormality: Status: Acute (8) Ketonuria: Status: Acute (9) Metabolic acidosis due to diabetes mellitus: Status: Acute (10) Gastritis: Status: Acute Review H&P Reviewed: Yes Patient was examined?: Yes
[2021-10-26] MEDS: COLACE CAP 100 MG PO SCH (21:04)
[2021-10-26] MEDS: SNACK - Diabetic Appropriate PO SCH (21:04)
[2021-10-26] MEDS: MILK OF MAGNESIA PO SCH (21:04)
[2021-10-27] MEDS: ZOFRAN INJ 4 MG VIAL IVP PRN ×5 (00:09→20:13)
[2021-10-27] MEDS: NS 1,000 ML IV 1,000 ML IV SCH ×3 (03:28→22:31)
[2021-10-27 05:41] LABS: BASOPHILS # (AUTO) 0.1 X10^3/uL (0.0-0.1); BASOPHILS % (AUTO) 1.7 % (0.2-1.0); EOSINOPHILS # (AUTO) 0.5 x10^3/uL (0.0-0.2); LYMPHOCYTES # (AUTO) 1.6 X10^3/uL (1.3-2.9); LYMPHOCYTES % (AUTO) 22.5 % (21.0-51.0); MEAN CORPUSCULAR HEMOGLOBIN 26.6 pg (27.0-34.0); MEAN CORPUSCULAR HGB CONC 33.8 g/dL (33.0-35.0); MEAN CORPUSCULAR VOLUME 78.8 fL (80.0-100.0); MEAN PLATELET VOLUME 7.5 fL (7.4-11.0); MONOCYTES # (AUTO) 0.9 x10^3/uL (0.3-0.8); MONOCYTES % (AUTO) 12.3 % (0.0-13.0); NEUTROPHILS % (AUTO) 56.5 % (42.0-75.0); RED BLOOD COUNT 4.06 X10^6/uL (4.7-6.0); RED CELL DISTRIBUTION WIDTH 20.2 % (11.6-16.5); WHITE BLOOD COUNT 7.1 X10^3/uL (3.6-10.0)
[2021-10-27 05:44] LABS: HEMOGLOBIN 10.8 g/dL (13.5-18.0)
[2021-10-27 05:49] LABS: ALANINE AMINOTRANSFERASE 7 Units/L (12-78); ALBUMIN 2.3 g/dL (3.4-5.0); ALKALINE PHOSPHATASE 113 Units/L (46-116); ASPARTATE AMINO TRANSFERASE 8 Units/L (15-37); BLOOD UREA NITROGEN 10 mg/dL (7-18); CALCIUM 8.4 mg/dL (8.5-10.1); CARBON DIOXIDE 22.7 mmol/L (21-32); CHLORIDE 104 mmol/L (98-107); COR CA(FOR HYPOALB) 9.8 mg/dL (8.5-10.1); COR NA(FOR HYPERGLY) 138 mmol/L (136-145); CREATININE 0.85 mg/dL (0.70-1.30); MAGNESIUM 0.9 mg/dL (1.7-2.9); SODIUM 137 mmol/L (136-145); TOTAL PROTEIN 6.9 g/dL (6.4-8.2); eGFR NON BLACK RACES > 60 (>60)
[2021-10-27] MEDS ORDERED: POTASSIUM CHLORIDE LIQ 20 MEQ UDC PO PRN (06:02)
[2021-10-27] MEDS ORDERED: MICRO K EXTEN CAP 10 MEQ PO PRN (06:02)
[2021-10-27] MEDS ORDERED: K-RIDER 10 MEQ/NS 100 ML 10 MEQ/100 ML BAG IV PRN (06:02)
[2021-10-27] MEDS ORDERED: POTASSIUM CHL 40 MEQ/NS 0.45% 500 ML IV PRN (06:02)
[2021-10-27] MEDS ORDERED: POTASSIUM CHL 60 MEQ/NS 0.45% 500 ML IV PRN (06:02)
[2021-10-27] MEDS ORDERED: KLOR-CON PO PRN (06:02)
[2021-10-27 06:11] LABS: ANISOCYTOSIS 1+; HYPOCHROMASIA SLIGHT; MICROCYTOSIS SLIGHT; PLATELET MORPHOLOGY COMMENT NORMAL (NORMAL)
[2021-10-27] MEDS: K-DUR TAB 20 MEQ PO PRN ×2 (06:38→20:14)
[2021-10-27] MEDS: MAGNESIUM SULFATE 1 GRAM/100 mL PREMIX 1 G/100 ML BAG IV PRN ×6 (06:38→13:43)
[2021-10-27] MEDS: CARAFATE PO SCH ×4 (08:29→20:20)
[2021-10-27] MEDS: PLAQUENIL PO SCH ×2 (08:30→20:15)
[2021-10-27] MEDS: FOLIC ACID TAB 1 MG PO SCH (08:30)
[2021-10-27] MEDS: LANTUS SC SCH (08:30)
[2021-10-27] MEDS: MILK OF MAGNESIA PO SCH ×2 (08:31→21:40)
[2021-10-27] MEDS: PROTONIX INJ 40 MG VIAL IVP SCH ×2 (08:31→20:13)
[2021-10-27] MEDS ORDERED: NAPROSYN PO SCH (09:00)
[2021-10-27] MEDS ORDERED: PATIENT'S HOME MEDICATION (Diclofenac Sodium 75 mg Tablet,Delayed Release (Dr/Ec)) PO SCH (09:00)
[2021-10-27] MEDS: NORCO 5/325 MG TAB PO PRN ×3 (09:50→21:43)
[2021-10-27] MEDS ORDERED: PHENERGAN INJ 25 MG IM PRN (14:06)
[2021-10-27] MEDS: TORADOL 15 MG VIAL IVP PRN (15:01)
[2021-10-27] MEDS: ROCEPHIN VIAL 1 GRAM 1 G in NS 100 ML IV 100 ML IV SCH (15:02)
[2021-10-27] MEDS: MYXREDLIN 100 UNIT/100 ML BAG 100 UNIT/100 ML PLAST..BAG IV PRN ×2 (19:28→22:27)
[2021-10-27] MEDS: SNACK - Diabetic Appropriate PO SCH (20:00)
[2021-10-27] MEDS: CYMBALTA PO SCH (20:15)
[2021-10-27] MEDS: COLACE CAP 100 MG PO SCH (21:39)
[2021-10-28] MEDS ORDERED: D5 NS 1,000 ML IV 1,000 ML IV ONE (00:26)
[2021-10-28] MEDS ORDERED: D5 NS IV ONE (00:27)
[2021-10-28] MEDS: D5 NS 1,000 ML IV 1,000 ML IV SCH ×2 (00:29→15:36)
[2021-10-28] MEDS: ZOFRAN INJ 4 MG VIAL IVP PRN ×4 (00:51→20:09)
[2021-10-28 05:33] LABS: BASOPHILS # (AUTO) 0.1 X10^3/uL (0.0-0.1); BASOPHILS % (AUTO) 1.3 % (0.2-1.0); EOSINOPHILS # (AUTO) 0.5 x10^3/uL (0.0-0.2); EOSINOPHILS % (AUTO) 9.1 % (0.9-2.9); HEMOGLOBIN 9.6 g/dL (13.5-18.0); LYMPHOCYTES # (AUTO) 1.6 X10^3/uL (1.3-2.9); LYMPHOCYTES % (AUTO) 28.9 % (21.0-51.0); MEAN CORPUSCULAR HEMOGLOBIN 26.8 pg (27.0-34.0); MEAN CORPUSCULAR HGB CONC 34.4 g/dL (33.0-35.0); MEAN CORPUSCULAR VOLUME 77.9 fL (80.0-100.0); MEAN PLATELET VOLUME 6.9 fL (7.4-11.0); MONOCYTES # (AUTO) 0.6 x10^3/uL (0.3-0.8); MONOCYTES % (AUTO) 10.6 % (0.0-13.0); NEUTROPHILS # (AUTO) 2.7 x10^3/uL (2.2-4.8); NEUTROPHILS % (AUTO) 50.1 % (42.0-75.0); RED CELL DISTRIBUTION WIDTH 20.5 % (11.6-16.5); WHITE BLOOD COUNT 5.4 X10^3/uL (3.6-10.0)
[2021-10-28 05:53] LABS: ALANINE AMINOTRANSFERASE 7 Units/L (12-78); ALBUMIN 2.2 g/dL (3.4-5.0); ALKALINE PHOSPHATASE 101 Units/L (46-116); ASPARTATE AMINO TRANSFERASE 9 Units/L (15-37); BLOOD UREA NITROGEN 6 mg/dL (7-18); CALCIUM 7.8 mg/dL (8.5-10.1); CARBON DIOXIDE 27.7 mmol/L (21-32); CHLORIDE 103 mmol/L (98-107); COR CA(FOR HYPOALB) 9.2 mg/dL (8.5-10.1); CREATININE 0.63 mg/dL (0.70-1.30); MAGNESIUM 1.2 mg/dL (1.7-2.9); SODIUM 138 mmol/L (136-145); TOTAL PROTEIN 6.1 g/dL (6.4-8.2); eGFR NON BLACK RACES > 60 (>60)
[2021-10-28 06:21] LABS: PLATELET MORPHOLOGY COMMENT NORMAL (NORMAL)
[2021-10-28 06:22] LABS: ANISOCYTOSIS 1+; HYPOCHROMASIA SLIGHT; MICROCYTOSIS SLIGHT
[2021-10-28] MEDS: MAGNESIUM SULFATE 1 GRAM/100 mL PREMIX 1 G/100 ML BAG IV PRN ×4 (06:22→12:14)
[2021-10-28] MEDS: K-DUR TAB 20 MEQ PO PRN ×2 (06:23→20:09)
[2021-10-28] MEDS: FOLIC ACID TAB 1 MG PO SCH (08:20)
[2021-10-28] MEDS: CARAFATE PO SCH ×4 (08:20→20:11)
[2021-10-28] MEDS: LANTUS SC SCH (08:20)
[2021-10-28] MEDS: MILK OF MAGNESIA PO SCH ×2 (08:21→20:11)
[2021-10-28] MEDS: PLAQUENIL PO SCH ×2 (08:22→20:10)
[2021-10-28] MEDS: PROTONIX INJ 40 MG VIAL IVP SCH ×2 (08:23→20:09)
[2021-10-28] MEDS: ROCEPHIN VIAL 1 GRAM 1 G in NS 100 ML IV 100 ML IV SCH (08:23)
[2021-10-28] MEDS: TORADOL 15 MG VIAL IVP PRN (12:14)
[2021-10-28] MEDS: NORCO 5/325 MG TAB PO PRN ×2 (15:43→20:51)
[2021-10-28] MEDS: CYMBALTA PO SCH (20:10)
[2021-10-28] MEDS: SNACK - Diabetic Appropriate PO SCH (20:11)
[2021-10-28] MEDS: COLACE CAP 100 MG PO SCH (20:11)
[2021-10-28] MEDS: NovoLIN R (or HumuLIN R) SC PRN (20:19)
[2021-10-29] MEDS: D5 NS 1,000 ML IV 1,000 ML IV SCH ×4 (04:27→22:38)
[2021-10-29] MEDS: ZOFRAN INJ 4 MG VIAL IVP PRN (05:50)
[2021-10-29 05:56] LABS: BASOPHILS % (AUTO) 0.2 % (0.2-1.0); EOSINOPHILS # (AUTO) 0.2 x10^3/uL (0.0-0.2); EOSINOPHILS % (AUTO) 4.9 % (0.9-2.9); HEMATOCRIT 28.2 % (42.0-54.0); HEMOGLOBIN 9.8 g/dL (13.5-18.0); LYMPHOCYTES # (AUTO) 1.4 X10^3/uL (1.3-2.9); LYMPHOCYTES % (AUTO) 30.2 % (21.0-51.0); MEAN CORPUSCULAR HEMOGLOBIN 27.4 pg (27.0-34.0); MEAN CORPUSCULAR HGB CONC 34.9 g/dL (33.0-35.0); MEAN CORPUSCULAR VOLUME 78.7 fL (80.0-100.0); MEAN PLATELET VOLUME 7.4 fL (7.4-11.0); MONOCYTES # (AUTO) 0.7 x10^3/uL (0.3-0.8); MONOCYTES % (AUTO) 14.8 % (0.0-13.0); NEUTROPHILS # (AUTO) 2.3 x10^3/uL (2.2-4.8); NEUTROPHILS % (AUTO) 49.9 % (42.0-75.0); RED BLOOD COUNT 3.58 X10^6/uL (4.7-6.0); RED CELL DISTRIBUTION WIDTH 19.9 % (11.6-16.5); WHITE BLOOD COUNT 4.7 X10^3/uL (3.6-10.0)
[2021-10-29 06:07] LABS: ALANINE AMINOTRANSFERASE 7 Units/L (12-78); ALBUMIN 2.3 g/dL (3.4-5.0); ALKALINE PHOSPHATASE 106 Units/L (46-116); ASPARTATE AMINO TRANSFERASE 10 Units/L (15-37); BLOOD UREA NITROGEN 5 mg/dL (7-18); CALCIUM 8.1 mg/dL (8.5-10.1); CARBON DIOXIDE 29.9 mmol/L (21-32); CHLORIDE 102 mmol/L (98-107); COR CA(FOR HYPOALB) 9.5 mg/dL (8.5-10.1); CREATININE 0.62 mg/dL (0.70-1.30); MAGNESIUM 1.5 mg/dL (1.7-2.9); SODIUM 138 mmol/L (136-145); TOTAL PROTEIN 6.4 g/dL (6.4-8.2); eGFR NON BLACK RACES > 60 (>60)
[2021-10-29] MEDS: MAGNESIUM SULFATE 1 GRAM/100 mL PREMIX 1 G/100 ML BAG IV PRN ×2 (06:28→09:21)
[2021-10-29] MEDS: CARAFATE PO SCH ×4 (08:21→20:24)
[2021-10-29] MEDS: LANTUS SC SCH (08:21)
[2021-10-29] MEDS: FOLIC ACID TAB 1 MG PO SCH (08:21)
[2021-10-29] MEDS: PLAQUENIL PO SCH ×2 (08:22→20:23)
[2021-10-29] MEDS: PROTONIX INJ 40 MG VIAL IVP SCH ×2 (08:22→20:25)
[2021-10-29] MEDS: MILK OF MAGNESIA PO SCH ×2 (08:22→20:28)
[2021-10-29] MEDS: ROCEPHIN VIAL 1 GRAM 1 G in NS 100 ML IV 100 ML IV SCH (08:23)
[2021-10-29] MEDS: K-DUR TAB 20 MEQ PO PRN (08:31)
[2021-10-29] MEDS: BENTYL CAP 10 MG PO SCH ×3 (09:19→21:48)
[2021-10-29] MEDS: MORPHINE SULFATE INJ 2 MG INJ IVP SCH ×3 (09:20→20:26)
[2021-10-29] MEDS: NovoLIN R (or HumuLIN R) SC PRN ×2 (11:00→16:00)
[2021-10-29] MEDS: CYMBALTA PO SCH (20:23)
[2021-10-29] MEDS: COLACE CAP 100 MG PO SCH (20:27)
[2021-10-29] MEDS: SNACK - Diabetic Appropriate PO SCH (20:40)
[2021-10-30] MEDS: D5 NS 1,000 ML IV 1,000 ML IV SCH (05:07)
[2021-10-30] MEDS: BENTYL CAP 10 MG PO SCH (05:08)
[2021-10-30 05:26] LABS: BASOPHILS # (AUTO) 0.1 X10^3/uL (0.0-0.1); EOSINOPHILS # (AUTO) 0.2 x10^3/uL (0.0-0.2); EOSINOPHILS % (AUTO) 5.5 % (0.9-2.9); HEMATOCRIT 28.3 % (42.0-54.0); HEMOGLOBIN 9.8 g/dL (13.5-18.0); LYMPHOCYTES # (AUTO) 1.4 X10^3/uL (1.3-2.9); MEAN CORPUSCULAR HEMOGLOBIN 27.2 pg (27.0-34.0); MEAN CORPUSCULAR HGB CONC 34.7 g/dL (33.0-35.0); MEAN CORPUSCULAR VOLUME 78.5 fL (80.0-100.0); MEAN PLATELET VOLUME 7.5 fL (7.4-11.0); MONOCYTES # (AUTO) 0.5 x10^3/uL (0.3-0.8); MONOCYTES % (AUTO) 11.1 % (0.0-13.0); NEUTROPHILS # (AUTO) 2.3 x10^3/uL (2.2-4.8); NEUTROPHILS % (AUTO) 51.4 % (42.0-75.0); RED BLOOD COUNT 3.61 X10^6/uL (4.7-6.0); RED CELL DISTRIBUTION WIDTH 20.7 % (11.6-16.5); WHITE BLOOD COUNT 4.5 X10^3/uL (3.6-10.0)
[2021-10-30 05:28] LABS: ALANINE AMINOTRANSFERASE 8 Units/L (12-78); ALBUMIN 2.3 g/dL (3.4-5.0); ALKALINE PHOSPHATASE 112 Units/L (46-116); ASPARTATE AMINO TRANSFERASE 9 Units/L (15-37); BLOOD UREA NITROGEN 7 mg/dL (7-18); CALCIUM 8.1 mg/dL (8.5-10.1); CARBON DIOXIDE 30.3 mmol/L (21-32); CHLORIDE 98 mmol/L (98-107); COR CA(FOR HYPOALB) 9.5 mg/dL (8.5-10.1); COR NA(FOR HYPERGLY) 137 mmol/L (136-145); CREATININE 0.69 mg/dL (0.70-1.30); MAGNESIUM 1.2 mg/dL (1.7-2.9); SODIUM 132 mmol/L (136-145); TOTAL PROTEIN 6.3 g/dL (6.4-8.2); eGFR NON BLACK RACES > 60 (>60)
[2021-10-30] MEDS: NovoLIN R (or HumuLIN R) SC PRN (05:41)
[2021-10-30 06:19] LABS: ANISOCYTOSIS 1+; PLATELET MORPHOLOGY COMMENT NORMAL (NORMAL)
[2021-10-30 06:20] LABS: TARGET CELLS SLIGHT
[2021-10-30] MEDS: MAGNESIUM SULFATE 1 GRAM/100 mL PREMIX 1 G/100 ML BAG IV PRN ×3 (07:28→10:43)
[2021-10-30] MEDS: CARAFATE PO SCH (08:29)
[2021-10-30] MEDS: LANTUS SC SCH (08:29)
[2021-10-30] MEDS: FOLIC ACID TAB 1 MG PO SCH (08:29)
[2021-10-30] MEDS: PROTONIX INJ 40 MG VIAL IVP SCH (08:30)
[2021-10-30] MEDS: PLAQUENIL PO SCH (08:30)
[2021-10-30] MEDS: MILK OF MAGNESIA PO SCH (08:30)
[2021-10-30] MEDS: ROCEPHIN VIAL 1 GRAM 1 G in NS 100 ML IV 100 ML IV SCH (08:55)
[2021-10-30] MEDS ORDERED: NS 1,000 ML IV 1,000 ML IV SCH (09:00)
[2021-10-30 11:35] VITALS: BP 117/73
== END 2021-10-30 11:56 | disposition home or self-care (01) | DRG 639 ==
LOC: ER 08:01 → ICU 09:58
PROVIDERS: ADMIT Internal Medicine; ATTEND Internal Medicine
DX: Z87.442 Personal history of urinary calculi; E87.6 Hypokalemia; E10.10 Type 1 diabetes mellitus with ketoacidosis without coma; K21.9 Gastro-esophageal reflux disease without esophagitis; R19.7 Diarrhea, unspecified; M19.90 Unspecified osteoarthritis, unspecified site; Z20.822 Contact with and (suspected) exposure to COVID-19; E87.8 Other disorders of electrolyte and fluid balance, not elsewhere classified; E86.0 Dehydration; R10.12 Left upper quadrant pain; I10 Essential (primary) hypertension; K29.60 Other gastritis without bleeding; F41.9 Anxiety disorder, unspecified; M06.8A Other specified rheumatoid arthritis, other specified site

== ENCOUNTER 2022-01-02 12:48 | Inpatient (IN) ==
--- NOTE | 2022-01-02 14:10 | DR.H&P ---
H&P - History & Physical for Day of: H&P Date: 01/02/22 - Chief Complaint Chief Complaint: RIGHT JAW PAIN, SWELLING, N/V, "DEHYDRATED" - History of Present Illness History of Present Illness: PT IS 46 WM, ADMITTED FROM DR CRAIN OFFICE WITH RIGHT JAW ABSCESS FAILED OUTPT THERAPY WITH PRIOR ER EVALUATION AND 2 ROUNDS OR ORAL PCN. PT REPORTS UNABLE TO EAT, FEELS DEHYDRATED WITH BS IN OFFICE 52, TREATED WITH ORAL GLUCOSE. PT IS TYPE I DM, RA, GERD, YUNIEL, MDD, NEUROPATHY. PT ADMITTED FOR TREATMENT AND EVALUATION OF ACUTE ILLNESS. - Past Medical History Past Medical History: Hypertension, Diabetes, Anxiety, GERD, Arthritis, Kidney Stones Additional Medical History: RA - Past Surgical History Surgical History: Lithotripsy - Family History Family Medical History: Cancer, [place], Coronary Artery Disease, Sudden Cardiac , Hypertension - Social History Does patient currently use any type of tobacco product: Yes Have you used tobacco products in the last 12 months: Yes Type of Tobacco Use: Cigarettes Alcohol Use: None Drug Use: None Prescription drug monitoring program results: PDMP reviewed and no concerns identified - Medications Home Medications: No Known Drug Allergies Allergy (Verified 10/18/21 13:56) - Review of Systems Constitutional: Chills, Weakness, Malaise Eyes: No Symptoms Reported ENT: Mouth Pain Respiratory: SOB with Excertion Cardiovascular: No Symptoms Reported Gastrointestinal: Nausea, Vomiting Genitourinary: No Symptoms Reported Musculoskeletal: Other (JAW PAIN) Skin: Other (REDNESS TO RIGHT JAW LINE) - Physical Exam Vital Signs: Blood Pressure [Right Arm] 122/80 Blood Pressure [Left Arm] 145/99 Blood Pressure 122/80 Oriented: Normal Eyes: Normal Ear: Right (TENDERNESS) Nose: Normal Respiratory: RLL Diminished, LLL Diminished Cardiovascular: Normal : Normal Auscultation: Bowel Sounds: Normal Palpation: Normal Tenderness: Epigastric Skin: Decreased Turgur Musculoskeletal: Right, Back:Thoracic, Back:Lumbar, Swelling (RIGHT JAW), Tender Psychiatric: Anxiety, Depression Affect: Anxious Speech Pattern: Clear, Appropriate - Assessment/Plan (1) Abscess of jaw, right Status: Acute Plan: ADMIT, BLOOD CULTURE ON ADMISSION. IV HYDRATION, BS AND BP CONTROL. PAIN CONTROL, IV ABTX. CXR ON ADISSION, VERIFY HOME MEDICATION (2) Diabetes Status: Acute (3) Gastritis Status: Acute (4) Vomiting and diarrhea Status: Acute (5) Acute dehydration Status: Acute (6) Rheumatoid aortitis Status: Acute - Allergies Allergies/Adverse Reactions: Allergies Allergy/AdvReac Type Severity Reaction Status Date / Time No Known Drug Allergies Allergy Verified 10/18/21 13:56
[2022-01-02 14:24] LABS: BASOPHILS % (AUTO) 0.6 % (0.2-1.0); EOSINOPHILS % (AUTO) 0.1 % (0.9-2.9); HEMATOCRIT 36.7 % (42.0-54.0); HEMOGLOBIN 12.5 g/dL (13.5-18.0); LYMPHOCYTES # (AUTO) 0.6 X10^3/uL (1.3-2.9); LYMPHOCYTES % (AUTO) 9.5 % (21.0-51.0); MEAN CORPUSCULAR HEMOGLOBIN 26.9 pg (27.0-34.0); MEAN CORPUSCULAR HGB CONC 34.1 g/dL (33.0-35.0); MEAN CORPUSCULAR VOLUME 78.7 fL (80.0-100.0); MEAN PLATELET VOLUME 7.5 fL (7.4-11.0); MONOCYTES # (AUTO) 0.7 x10^3/uL (0.3-0.8); MONOCYTES % (AUTO) 10.3 % (0.0-13.0); NEUTROPHILS # (AUTO) 5.2 x10^3/uL (2.2-4.8); NEUTROPHILS % (AUTO) 79.5 % (42.0-75.0); RED BLOOD COUNT 4.66 X10^6/uL (4.7-6.0); RED CELL DISTRIBUTION WIDTH 19.9 % (11.6-16.5); WHITE BLOOD COUNT 6.5 X10^3/uL (3.6-10.0)
[2022-01-02] MEDS: PLAQUENIL PO SCH ×2 (14:39→20:50)
[2022-01-02] MEDS: NS 1,000 ML IV 1,000 ML IV SCH (14:39)
[2022-01-02] MEDS: BENTYL CAP 10 MG PO SCH ×2 (14:39→21:03)
[2022-01-02] MEDS: PROTONIX INJ 40 MG VIAL IVP SCH ×2 (14:39→22:45)
[2022-01-02] MEDS: ZOSYN VIAL 3.375 GRAMS 3.375 G in NS 100 ML IV 100 ML IV SCH ×3 (14:40→21:03)
[2022-01-02 14:41] LABS: ALANINE AMINOTRANSFERASE 7 Units/L (12-78); ALBUMIN 2.8 g/dL (3.4-5.0); ALKALINE PHOSPHATASE 147 Units/L (46-116); ASPARTATE AMINO TRANSFERASE 11 Units/L (15-37); BLOOD UREA NITROGEN 15 mg/dL (7-18); CALCIUM 8.4 mg/dL (8.5-10.1); CARBON DIOXIDE 26.9 mmol/L (21-32); CHLORIDE 91 mmol/L (98-107); COR CA(FOR HYPOALB) 9.4 mg/dL (8.5-10.1); CREATININE 1.02 mg/dL (0.70-1.30); MAGNESIUM 1.1 mg/dL (1.7-2.9); SODIUM 127 mmol/L (136-145); TOTAL PROTEIN 8.8 g/dL (6.4-8.2); eGFR NON BLACK RACES > 60 (>60)
[2022-01-02 15:01] VITALS: BMI 15.5
[2022-01-02 15:02] LABS: SERUM ACETONE NEGATIVE (NEGATIVE)
--- NOTE | 2022-01-02 15:30 | RAD ---
HISTORYRT JAW PAIN AND SWELLINGSTUDYMANDIBLE five viewCOMPARISONNoneFINDINGSNo acute cortical disruption or dislocation can be identified. No significant soft tissue swelling or injury can be seen.IMPRESSIONNo radiographic evidence of mandibular fracture.Electronically signed by: ROYA MUNOZ (Jan 02, 2022 15:28:55)
[2022-01-02] MEDS: MAGNESIUM SULFATE 1 GRAM/100 mL PREMIX 1 G/100 ML BAG IV PRN ×4 (15:54→21:08)
[2022-01-02] MEDS: NORCO 7.5/325 MG TAB PO PRN ×2 (15:56→22:47)
--- NOTE | 2022-01-02 16:16 | RAD ---
HISTORYSOB, RT JAW ABCESSSTUDYCHEST x-ray, 1 VIEWCOMPARISONX-ray 10/26/2021FINDINGSHeart is normal in size. Lungs are hyperinflated which could be from asthma or exuberant inspiration. There is biapical scarring and findings may be from emphysema. No pneumothorax, focal infiltrate, or pleural effusion is seen.IMPRESSIONHyperinflation of the lungs is similar appearance to prior study. As there is biapical scarring, unchanged, consider possible emphysema but asthma or exuberant inspiration are not excluded.Electronically signed by: Sonido Starkey (Jan 02, 2022 16:14:59)
[2022-01-02] MEDS: TORADOL 30 MG VIAL IVP PRN (18:11)
[2022-01-02] MEDS: SNACK - Diabetic Appropriate PO SCH (20:08)
[2022-01-02] MEDS: CYMBALTA PO SCH (20:50)
[2022-01-02] MEDS: NovoLIN R (or HumuLIN R) SUBCUT PRN (22:46)
[2022-01-03] MEDS: MAGNESIUM SULFATE 1 GRAM/100 mL PREMIX 1 G/100 ML BAG IV PRN ×2 (00:36→03:23)
[2022-01-03] MEDS: NS 1,000 ML IV 1,000 ML IV SCH ×3 (05:10→20:59)
[2022-01-03] MEDS: ZOSYN VIAL 3.375 GRAMS 3.375 G in NS 100 ML IV 100 ML IV SCH ×3 (05:11→22:46)
[2022-01-03] MEDS: BENTYL CAP 10 MG PO SCH ×3 (05:11→21:00)
[2022-01-03] MEDS: ZOFRAN INJ 4 MG VIAL IVP PRN ×2 (05:18→14:17)
[2022-01-03 06:15] LABS: BILIRUBIN,URINE NEGATIVE (NEGATIVE); BLOOD/HEMOGLOBIN,URINE 1+ (NEGATIVE); GLUCOSE, URINE 4+ (NEGATIVE); KETONES,URINE NEGATIVE (NEGATIVE); LEUKOCYTE ESTERASE ,URINE NEGATIVE (NEGATIVE); NITRITES,URINE NEGATIVE (NEGATIVE); PROTEIN,URINE 2+ (NEGATIVE); UROBILINOGEN,URINE NORMAL (NORMAL)
[2022-01-03 06:27] LABS: APPEARANCE,URINE CLEAR (CLEAR); COLOR,URINE YELLOW (YELLOW)
[2022-01-03 06:28] LABS: BACTERIA,URINE NEGATIVE /HPF (NEGATIVE); RBC,URINE 0-2 /HPF (0-3); SQUAMOUS EPITHELIAL CELL,UR FEW /HPF (NEGATIVE)
[2022-01-03 06:37] LABS: BASOPHILS % (AUTO) 0.7 % (0.2-1.0); EOSINOPHILS % (AUTO) 0.7 % (0.9-2.9); HEMOGLOBIN 10.8 g/dL (13.5-18.0); LYMPHOCYTES # (AUTO) 0.5 X10^3/uL (1.3-2.9); LYMPHOCYTES % (AUTO) 7.9 % (21.0-51.0); MEAN CORPUSCULAR HEMOGLOBIN 27.1 pg (27.0-34.0); MEAN CORPUSCULAR HGB CONC 33.8 g/dL (33.0-35.0); MEAN PLATELET VOLUME 7.8 fL (7.4-11.0); MONOCYTES # (AUTO) 0.7 x10^3/uL (0.3-0.8); MONOCYTES % (AUTO) 12.4 % (0.0-13.0); NEUTROPHILS # (AUTO) 4.7 x10^3/uL (2.2-4.8); NEUTROPHILS % (AUTO) 78.3 % (42.0-75.0); RED CELL DISTRIBUTION WIDTH 20.4 % (11.6-16.5)
[2022-01-03 06:49] LABS: ASPARTATE AMINO TRANSFERASE 9 Units/L (15-37); SODIUM 129 mmol/L (136-145); eGFR NON BLACK RACES > 60 (>60)
[2022-01-03 07:04] LABS: ANISOCYTOSIS 1+; PLATELET MORPHOLOGY COMMENT NORMAL (NORMAL)
[2022-01-03] MEDS: NORCO 7.5/325 MG TAB PO PRN ×2 (07:11→21:00)
[2022-01-03 07:29] LABS: ALANINE AMINOTRANSFERASE < 6 Units/L (12-78); ALBUMIN 2.3 g/dL (3.4-5.0); ALKALINE PHOSPHATASE 119 Units/L (46-116); BLOOD UREA NITROGEN 22 mg/dL (7-18); CALCIUM 7.6 mg/dL (8.5-10.1); CARBON DIOXIDE 27.9 mmol/L (21-32); CHLORIDE 96 mmol/L (98-107); CREATININE 0.86 mg/dL (0.70-1.30); MAGNESIUM 2.4 mg/dL (1.7-2.9); TOTAL PROTEIN 7.6 g/dL (6.4-8.2)
[2022-01-03] MEDS: PROTONIX INJ 40 MG VIAL IVP SCH ×2 (08:40→20:58)
[2022-01-03] MEDS: PLAQUENIL PO SCH ×2 (08:40→20:58)
[2022-01-03] MEDS: TORADOL 30 MG VIAL IVP PRN ×3 (08:41→22:56)
[2022-01-03] MEDS ORDERED: PHARMACY CONSULT - VANCOMYCIN XX SCH (11:00)
[2022-01-03] MEDS ORDERED: VANCOMYCIN IV *PREMIX 750 mg/150 ML BAG 750 MG/150 ML PIGGYBACK IV SCH (11:00)
[2022-01-03] MEDS: VANCOMYCIN IV *PREMIX 750 mg/150 ML BAG 750 MG/150 ML PIGGYBACK IV SCH ×2 (17:11→21:01)
[2022-01-03] MEDS: SNACK - Diabetic Appropriate PO SCH (20:57)
[2022-01-03] MEDS: CYMBALTA PO SCH (20:58)
[2022-01-03] MEDS: NovoLIN R (or HumuLIN R) SUBCUT PRN (22:47)
--- NOTE | 2022-01-03 23:48 | PCM.PROG ---
Progress Note - Progress Note for Day of Date of Exam: 01/03/22 - Subjective Subjective: IS A 46 YEAR OLD PATIENT OF . HE WAS ADMITTED FOR TREATMENT OF FACIAL CELLULITIS AND ABSCESS. PATIENT HAS AND ABSCESS WITH SWELLING AND REDNESS TO THE RIGHT SIDE MANDIBULAR AREA. HE HAS FAILED TWO ROUNDS OF ORAL PENICILLIN. HE CONTINUES WITH MODERATE PAIN TO THE JAW. HIS PMH INCLUDES: TYPE I DM, RA, GERD, YUNIEL, MDD, NEUROPATHY. HIS VITALS THIS MORNING ARE: 98.2-81-18-96%-96/55. LABS WERE OBTAINED. WBC 6.0, RBC 4.00, HGB 10.8, HCT 32.0, PLT COUNT 339, SODIUM 129, POTASSIUM 3.9, CHLORIDE 96, BUN 22, CREATININE 0.86, GLUCOSE 51, CALCIUM 7.6, MAGNESIUM 2.4, AST 9, ALT <6, ALK PHOS 119, TOTAL PROTEIN 7.6, ALBUMIN 2.3. HE IS CURRENTLY RECEIVING NORMAL SALINE AT 75 ML/HR, ZOSYN 3.375G IV TID, PROTONIX 40MG IV BID, TORADOL 30MG IV Q6H PRN, ZOFRAN 4MG IV Q8H, OTBS ACHS, HUMULIN R SLIDING SCALE, THE POTASSIUM AND MAGNESIUM PROTOCOLS, NORCO 7.5/325MG PO Q6H PRN, AND HIS HOME MEDICATIONS WERE RESUMED. TODAY, WE WILL ADD VANCOMYCIN 750MG IV Q8H. OTHERWISE, WE WILL CONTINUE WITH CURRENT PLAN OF CARE. WE PLAN TO FOLLOW-UP WITH AM LABS AND CONTINUE TO MONITOR. TIME SPENT ON CLINICAL ASSESSMENT, REVIEWING LABS AND IMAGING, DECISION MAKING, AND DOCUMENTATION GREATER THAN 45 MINUTES. - Past Medical Family Social History Past Med/Fam/Surg Hx: No changes since H&P Allergies: Allergies No Known Drug Allergies Allergy (Verified 10/18/21 13:56) - Review of Systems ROS: No change since H&P - Vital Signs and I&O's Vital Signs: Temperature 98.0 F Pulse Rate [Right Radial] 64 Respiratory Rate 20 Blood Pressure [Right Arm] 90/61 Blood Pressure [Left Arm] 145/99 Blood Pressure 122/80 O2 Sat by Pulse Oximetry 98 Intake and Output: Intake & Output 01/01/22 01/02/22 01/03/22 01/04/22 11:59 11:59 11:59 11:59 Intake Total 2047 1101 / 1101 Output Total 750 / 750 350 / 350 Balance 1298 / 1298 751 / 751 - Physical Exam Oriented: Normal Eyes: Normal Ear: Right (TENDERNESS) Nose: Normal Throat: Normal Respiratory: Normal Cardiovascular: Normal : Normal Auscultation: Bowel Sounds: Normal Palpation: Normal Tenderness: Epigastric Skin: Decreased Turgur Musculoskeletal: Right, Back:Thoracic, Back:Lumbar, Swelling (RIGHT JAW), Tender Psychiatric: Anxiety, Depression Affect: Anxious Speech Pattern: Clear, Appropriate - Laboratory and Diagnostics Result Diagrams: 01/03/22 05:55 01/03/22 07:00 Labs: Laboratory WBC 6.0 X10^3/uL (3.6-10.0) 01/03/22 05:55 RBC 4.00 X10^6/uL (4.7-6.0) L 01/03/22 05:55 Hgb 10.8 g/dL (13.5-18.0) L 01/03/22 05:55 Hct 32.0 % (42.0-54.0) L 01/03/22 05:55 MCV 80.0 fL (80.0-100.0) 01/03/22 05:55 MCH 27.1 pg (27.0-34.0) 01/03/22 05:55 MCHC 33.8 g/dL (33.0-35.0) 01/03/22 05:55 RDW 20.4 % (11.6-16.5) H 01/03/22 05:55 Plt Count 339 X10^3/uL (150.0-450.0) 01/03/22 05:55 Plt Count Comment Adequate (ADEQUATE) 01/03/22 05:55 MPV 7.8 fL (7.4-11.0) 01/03/22 05:55 Neut % (Auto) 78.3 % (42.0-75.0) H 01/03/22 05:55 Lymph % (Auto) 7.9 % (21.0-51.0) L 01/03/22 05:55 [place] % (Auto) 12.4 % (0.0-13.0) 01/03/22 05:55 Eos % (Auto) 0.7 % (0.9-2.9) L 01/03/22 05:55 Baso % (Auto) 0.7 % (0.2-1.0) 01/03/22 05:55 Neut # (Auto) 4.7 x10^3/uL (2.2-4.8) 01/03/22 05:55 Lymph # (Auto) 0.5 X10^3/uL (1.3-2.9) L 01/03/22 05:55 [place] # (Auto) 0.7 x10^3/uL (0.3-0.8) 01/03/22 05:55 Eos # (Auto) 0.0 x10^3/uL (0.0-0.2) 01/03/22 05:55 Baso # (Auto) 0.0 X10^3/uL (0.0-0.1) 01/03/22 05:55 Absolute Nucleated RBC 0.0 /100WBC 01/03/22 05:55 Plt Morphology Comment Normal (NORMAL) 01/03/22 05:55 RBC Morphology Abnormal (NORMAL) 01/03/22 05:55 Anisocytosis 1+ A 01/03/22 05:55 Sodium 129 mmol/L (136-145) L 01/03/22 07:00 Corrected Sodium TNP 01/03/22 07:00 Potassium 3.9 mmol/L (3.5-5.1) 01/03/22 07:00 Chloride 96 mmol/L (98-107) L 01/03/22 07:00 Carbon Dioxide 27.9 mmol/L (21-32) 01/03/22 07:00 BUN 22 mg/dL (7-18) H 01/03/22 07:00 Creatinine 0.86 mg/dL (0.70-1.30) 01/03/22 07:00 Est GFR (MDRD) Af Amer > 60 (>60) 01/03/22 07:00 Est GFR (MDRD) Non-Af > 60 (>60) 01/03/22 07:00 Glucose 51 mg/dL (65-99) L 01/03/22 07:00 POC Glucose (mg/dL) 337 mg/dL (65-99) H 01/03/22 21:15 Calcium 7.6 mg/dL (8.5-10.1) L 01/03/22 07:00 Corrected Calcium 9.0 mg/dL (8.5-10.1) 01/03/22 07:00 Magnesium 2.4 mg/dL (1.7-2.9) 01/03/22 07:00 Total Bilirubin 0.30 mg/dL (0.2-1.0) 01/03/22 07:00 AST 9 Units/L (15-37) L 01/03/22 07:00 ALT < 6 Units/L (12-78) L 01/03/22 07:00 Alkaline Phosphatase 119 Units/L (46-116) H 01/03/22 07:00 Total Protein 7.6 g/dL (6.4-8.2) 01/03/22 07:00 Albumin 2.3 g/dL (3.4-5.0) L 01/03/22 07:00 Globulin 5.3 g/dL (2.5-4.5) H 01/03/22 07:00 Albumin/Globulin Ratio 0.4 Ratio (1.1-2.1) L 01/03/22 07:00 Specimen Type Clean catch urine 01/03/22 05:53 Urine Color Yellow (YELLOW) 01/03/22 05:53 Urine Appearance Clear (CLEAR) 01/03/22 05:53 Urine pH 5.0 (5.0 - 8.0) 01/03/22 05:53 Ur Specific [place] 1.025 (1.000-1.030) 01/03/22 05:53 Urine Protein 2+ (NEGATIVE) 01/03/22 05:53 Urine Glucose (UA) 4+ (NEGATIVE) 01/03/22 05:53 Urine Ketones Negative (NEGATIVE) 01/03/22 05:53 Urine Blood 1+ (NEGATIVE) 01/03/22 05:53 Urine Nitrite Negative (NEGATIVE) 01/03/22 05:53 Urine Bilirubin Negative (NEGATIVE) 01/03/22 05:53 Urine Acetone Negative (NEGATIVE) 01/03/22 05:53 Urine Urobilinogen Normal (NORMAL) 01/03/22 05:53 Ur Leukocyte Esterase Negative (NEGATIVE) 01/03/22 05:53 Urine RBC 0-2 /HPF (0-3) 01/03/22 05:53 Urine WBC None seen /HPF (0-5) 01/03/22 05:53 Ur Squamous Epith Cells Few /HPF (NEGATIVE) 01/03/22 05:53 Urine Bacteria Negative /HPF (NEGATIVE) 01/03/22 05:53 Urine Mucus Rare /HPF (NEGATIVE) 01/03/22 05:53 Ur Culture Indicated? No/not indicated 01/03/22 05:53 Acetone, Semi-Quant Negative (NEGATIVE) 01/02/22 14:00 - Plan (1) Abscess of jaw, right Status: Acute Plan: NORMAL SALINE AT 75 ML/HR, ZOSYN 3.375G IV TID, VANCOMYCIN, PROTONIX 40MG IV BID, TORADOL 30MG IV Q6H PRN, ZOFRAN 4MG IV Q8H, OTBS ACHS, HUMULIN R SLIDING SCALE, THE POTASSIUM AND MAGNESIUM PROTOCOLS, NORCO 7.5/325MG PO Q6H PRN, AND HIS HOME MEDICATIONS WERE RESUMED. (2) Facial cellulitis Status: Acute (3) Diabetes Status: Chronic Qualifiers: Diabetes mellitus type: type 1 Diabetes mellitus complication status: with hyperglycemia Qualified Code(s): E10.65 - Type 1 diabetes mellitus with hyperglycemia (4) GERD (gastroesophageal reflux disease) Status: Chronic Qualifiers: Esophagitis presence: esophagitis presence not specified Qualified Code(s): K21.9 - Gastro-esophageal reflux disease without esophagitis (5) YUNIEL (generalized anxiety disorder) Status: Chronic (6) Depression Status: Chronic Qualifiers: Depression Type: major depressive disorder Major depression recurrence: recurrent Active/Remission status: currently active Major depression episode severity: mild Qualified Code(s): F33.0 - Major depressive disorder, recurrent, mild
[2022-01-04] MEDS ORDERED: PHARMACY COMMENT IV SCH ×2 (05:30→20:30)
[2022-01-04] MEDS: BENTYL CAP 10 MG PO SCH ×3 (05:42→22:00)
[2022-01-04] MEDS: ZOSYN VIAL 3.375 GRAMS 3.375 G in NS 100 ML IV 100 ML IV SCH ×3 (05:42→21:59)
[2022-01-04 06:16] LABS: HEMOGLOBIN 9.2 g/dL (13.5-18.0); LYMPHOCYTES # (AUTO) 0.9 X10^3/uL (1.3-2.9); MEAN CORPUSCULAR HEMOGLOBIN 27.1 pg (27.0-34.0); MEAN CORPUSCULAR VOLUME 78.9 fL (80.0-100.0); MEAN PLATELET VOLUME 7.6 fL (7.4-11.0); MONOCYTES # (AUTO) 0.7 x10^3/uL (0.3-0.8); NEUTROPHILS # (AUTO) 3.4 x10^3/uL (2.2-4.8); WHITE BLOOD COUNT 5.1 X10^3/uL (3.6-10.0)
[2022-01-04 06:23] LABS: BASOPHILS % (AUTO) 0.8 % (0.2-1.0); EOSINOPHILS # (AUTO) 0.1 x10^3/uL (0.0-0.2); HEMATOCRIT 26.9 % (42.0-54.0); MEAN CORPUSCULAR HGB CONC 34.4 g/dL (33.0-35.0); MONOCYTES % (AUTO) 13.5 % (0.0-13.0); NEUTROPHILS % (AUTO) 66.7 % (42.0-75.0); RED BLOOD COUNT 3.41 X10^6/uL (4.7-6.0); RED CELL DISTRIBUTION WIDTH 19.8 % (11.6-16.5)
[2022-01-04 06:27] LABS: CREATININE 0.87 mg/dL (0.70-1.30); VANCOMYCIN,TROUGH 9.8 ug/mL (15-20)
[2022-01-04 06:35] LABS: ALANINE AMINOTRANSFERASE < 6 Units/L (12-78); ALKALINE PHOSPHATASE 100 Units/L (46-116); ASPARTATE AMINO TRANSFERASE 9 Units/L (15-37); BLOOD UREA NITROGEN 23 mg/dL (7-18); CALCIUM 7.3 mg/dL (8.5-10.1); CARBON DIOXIDE 26.4 mmol/L (21-32); CHLORIDE 99 mmol/L (98-107); COR CA(FOR HYPOALB) 8.9 mg/dL (8.5-10.1); CREATININE 0.83 mg/dL (0.70-1.30); SODIUM 132 mmol/L (136-145); TOTAL PROTEIN 6.8 g/dL (6.4-8.2); eGFR NON BLACK RACES > 60 (>60)
[2022-01-04] MEDS: VANCOMYCIN IV *PREMIX 750 mg/150 ML BAG 750 MG/150 ML PIGGYBACK IV SCH ×3 (06:59→22:00)
[2022-01-04] MEDS: K-DUR TAB 20 MEQ PO PRN (08:39)
[2022-01-04] MEDS: PLAQUENIL PO SCH ×2 (08:39→20:10)
[2022-01-04] MEDS: TORADOL 30 MG VIAL IVP PRN ×2 (08:40→16:35)
[2022-01-04] MEDS: PROTONIX INJ 40 MG VIAL IVP SCH ×2 (08:40→20:10)
--- NOTE | 2022-01-04 09:32 | PCM.PROG ---
Progress Note - Progress Note for Day of Date of Exam: 01/04/22 - Subjective Subjective: IS A 46 YEAR OLD PATIENT OF . HE WAS ADMITTED FOR TREATMENT OF FACIAL CELLULITIS AND ABSCESS. PATIENT HAS AND ABSCESS WITH SWELLING AND REDNESS TO THE RIGHT SIDE MANDIBULAR AREA. HE HAS FAILED TWO ROUNDS OF ORAL PENICILLIN. HE CONTINUES WITH PAIN TO THE JAW, BUT REPORTS SLIGHT IMPROVEMENT IN SYMPTOMS TODAY. HIS PMH INCLUDES: TYPE I DM, RA, GERD, YUNIEL, MDD, NEUROPATHY. HIS VITALS THIS MORNING ARE: 97.7-67-18-100%-98/57. LABS WERE OBTAINED. WBC 5.1, RBC 3.41, HGB 9.2, HCT 26.9, SODIUM 132, POTASSIUM 3.6, CHLORIDE 99, BUN 23, CREATININE 0.83, GLUCOSE 50, CALCIUM 7.3, AST 9, ALT <6, ALK PHOS 100, TOTAL PROTEIN 6.8, ALBUMIN 2.0. HE IS CURRENTLY RECEIVING NORMAL SALINE AT 75 ML/HR, ZOSYN 3.375G IV TID, VANCOMYCIN 750MG IV Q8H, PROTONIX 40MG IV BID, TORADOL 30MG IV Q6H PRN, ZOFRAN 4MG IV Q8H, OTBS ACHS, HUMULIN R SLIDING SCALE, THE POTASSIUM AND MAGNESIUM PROTOCOLS, NORCO 7.5/325MG PO Q6H PRN, AND HIS HOME MEDICATIONS WERE RESUMED. OTHERWISE, WE WILL CONTINUE WITH CURRENT PLAN OF CARE. WE PLAN TO FOLLOW-UP WITH AM LABS AND CONTINUE TO MONITOR. TIME SPENT ON CLINICAL ASSESSMENT, REVIEWING LABS AND IMAGING, DECISION MAKING, AND DOCUMENTATION GREATER THAN 45 MINUTES. - Past Medical Family Social History Past Med/Fam/Surg Hx: No changes since H&P Allergies: Allergies No Known Drug Allergies Allergy (Verified 10/18/21 13:56) - Review of Systems ROS: No change since H&P - Vital Signs and I&O's Vital Signs: Temperature 97.7 F Pulse Rate [Right Radial] 67 Respiratory Rate 14 Blood Pressure [Right Arm] 98/57 Blood Pressure [Left Arm] 145/99 Blood Pressure 122/80 O2 Sat by Pulse Oximetry 100 Intake and Output: Intake & Output 01/01/22 01/02/22 01/03/22 01/04/22 11:59 11:59 11:59 11:59 Intake Total 2047 / 2047 3019 / 3019 Output Total 750 / 750 1325 / 1325 Balance 1298 / 1298 1694 / 1694 - Physical Exam Oriented: Normal Eyes: Normal Ear: Right (TENDERNESS) Nose: Normal Throat: Normal Respiratory: Normal Cardiovascular: Normal : Normal Auscultation: Bowel Sounds: Normal Tenderness: Epigastric Skin: Decreased Turgur Musculoskeletal: Right, Back:Thoracic, Back:Lumbar, Swelling (RIGHT JAW), Tender Psychiatric: Anxiety, Depression Affect: Anxious Speech Pattern: Clear, Appropriate - Laboratory and Diagnostics Result Diagrams: 01/04/22 05:43 01/04/22 07:00 Labs: Laboratory WBC 5.1 X10^3/uL (3.6-10.0) 01/04/22 05:43 RBC 3.41 X10^6/uL (4.7-6.0) L 01/04/22 05:43 Hgb 9.2 g/dL (13.5-18.0) L 01/04/22 05:43 Hct 26.9 % (42.0-54.0) L 01/04/22 05:43 MCV 78.9 fL (80.0-100.0) L 01/04/22 05:43 MCH 27.1 pg (27.0-34.0) 01/04/22 05:43 MCHC 34.4 g/dL (33.0-35.0) 01/04/22 05:43 RDW 19.8 % (11.6-16.5) H 01/04/22 05:43 Plt Count 295 X10^3/uL (150.0-450.0) 01/04/22 05:43 Plt Count Comment Adequate (ADEQUATE) 01/03/22 05:55 MPV 7.6 fL (7.4-11.0) 01/04/22 05:43 Neut % (Auto) 66.7 % (42.0-75.0) 01/04/22 05:43 Lymph % (Auto) 18.0 % (21.0-51.0) L 01/04/22 05:43 [place] % (Auto) 13.5 % (0.0-13.0) H 01/04/22 05:43 Eos % (Auto) 1.0 % (0.9-2.9) 01/04/22 05:43 Baso % (Auto) 0.8 % (0.2-1.0) 01/04/22 05:43 Neut # (Auto) 3.4 x10^3/uL (2.2-4.8) 01/04/22 05:43 Lymph # (Auto) 0.9 X10^3/uL (1.3-2.9) L 01/04/22 05:43 [place] # (Auto) 0.7 x10^3/uL (0.3-0.8) 01/04/22 05:43 Eos # (Auto) 0.1 x10^3/uL (0.0-0.2) 01/04/22 05:43 Baso # (Auto) 0.0 X10^3/uL (0.0-0.1) 01/04/22 05:43 Absolute Nucleated RBC 0.0 /100WBC 01/04/22 05:43 Plt Morphology Comment Normal (NORMAL) 01/03/22 05:55 RBC Morphology Abnormal (NORMAL) 01/03/22 05:55 Anisocytosis 1+ A 01/03/22 05:55 Sodium 132 mmol/L (136-145) L 01/04/22 05:45 Corrected Sodium TNP 01/04/22 05:45 Potassium 3.6 mmol/L (3.5-5.1) 01/04/22 05:45 Chloride 99 mmol/L (98-107) 01/04/22 05:45 Carbon Dioxide 26.4 mmol/L (21-32) 01/04/22 05:45 BUN 23 mg/dL (7-18) H 01/04/22 05:45 Creatinine 0.83 mg/dL (0.70-1.30) 01/04/22 05:45 Creatinine 0.87 mg/dL (0.70-1.30) 01/04/22 05:45 Est GFR (MDRD) Af Amer > 60 (>60) 01/04/22 05:45 Est GFR (MDRD) Non-Af > 60 (>60) 01/04/22 05:45 Glucose 121 mg/dL (65-99) H 01/04/22 07:00 POC Glucose (mg/dL) 113 mg/dL (65-99) H 01/04/22 07:08 Calcium 7.3 mg/dL (8.5-10.1) L 01/04/22 05:45 Corrected Calcium 8.9 mg/dL (8.5-10.1) 01/04/22 05:45 Magnesium 2.4 mg/dL (1.7-2.9) 01/03/22 07:00 Total Bilirubin 0.20 mg/dL (0.2-1.0) 01/04/22 05:45 AST 9 Units/L (15-37) L 01/04/22 05:45 ALT < 6 Units/L (12-78) L 01/04/22 05:45 Alkaline Phosphatase 100 Units/L (46-116) 01/04/22 05:45 Total Protein 6.8 g/dL (6.4-8.2) 01/04/22 05:45 Albumin 2.0 g/dL (3.4-5.0) L 01/04/22 05:45 Globulin 4.8 g/dL (2.5-4.5) H 01/04/22 05:45 Albumin/Globulin Ratio 0.4 Ratio (1.1-2.1) L 01/04/22 05:45 Specimen Type Clean catch urine 01/03/22 05:53 Urine Color Yellow (YELLOW) 01/03/22 05:53 Urine Appearance Clear (CLEAR) 01/03/22 05:53 Urine pH 5.0 (5.0 - 8.0) 01/03/22 05:53 Ur Specific [place] 1.025 (1.000-1.030) 01/03/22 05:53 Urine Protein 2+ (NEGATIVE) 01/03/22 05:53 Urine Glucose (UA) 4+ (NEGATIVE) 01/03/22 05:53 Urine Ketones Negative (NEGATIVE) 01/03/22 05:53 Urine Blood 1+ (NEGATIVE) 01/03/22 05:53 Urine Nitrite Negative (NEGATIVE) 01/03/22 05:53 Urine Bilirubin Negative (NEGATIVE) 01/03/22 05:53 Urine Acetone Negative (NEGATIVE) 01/03/22 05:53 Urine Urobilinogen Normal (NORMAL) 01/03/22 05:53 Ur Leukocyte Esterase Negative (NEGATIVE) 01/03/22 05:53 Urine RBC 0-2 /HPF (0-3) 01/03/22 05:53 Urine WBC None seen /HPF (0-5) 01/03/22 05:53 Ur Squamous Epith Cells Few /HPF (NEGATIVE) 01/03/22 05:53 Urine Bacteria Negative /HPF (NEGATIVE) 01/03/22 05:53 Urine Mucus Rare /HPF (NEGATIVE) 01/03/22 05:53 Ur Culture Indicated? No/not indicated 01/03/22 05:53 Vancomycin Trough 9.8 ug/mL (15-20) L 01/04/22 05:45 Acetone, Semi-Quant Negative (NEGATIVE) 01/02/22 14:00 - Plan (1) Abscess of jaw, right Status: Acute Plan: NORMAL SALINE AT 75 ML/HR, ZOSYN 3.375G IV TID, VANCOMYCIN, PROTONIX 40MG IV BID, TORADOL 30MG IV Q6H PRN, ZOFRAN 4MG IV Q8H, OTBS ACHS, HUMULIN R SLIDING SCALE, THE POTASSIUM AND MAGNESIUM PROTOCOLS, NORCO 7.5/325MG PO Q6H PRN, AND HIS HOME MEDICATIONS WERE RESUMED. (2) Facial cellulitis Status: Acute (3) Diabetes Status: Chronic Qualifiers: Diabetes mellitus type: type 1 Diabetes mellitus complication status: with hyperglycemia Qualified Code(s): E10.65 - Type 1 diabetes mellitus with hyperglycemia (4) GERD (gastroesophageal reflux disease) Status: Chronic Qualifiers: Esophagitis presence: esophagitis presence not specified Qualified Code(s): K21.9 - Gastro-esophageal reflux disease without esophagitis (5) YUNIEL (generalized anxiety disorder) Status: Chronic (6) Depression Status: Chronic Qualifiers: Depression Type: major depressive disorder Major depression recurrence: recurrent Active/Remission status: currently active Major depression episode severity: mild Qualified Code(s): F33.0 - Major depressive disorder, recurren t, mild
[2022-01-04] MEDS: NORCO 7.5/325 MG TAB PO PRN ×2 (13:13→20:09)
[2022-01-04 13:37] LABS: CREATININE 0.88 mg/dL (0.70-1.30); VANCOMYCIN,TROUGH 13.6 ug/mL (15-20)
[2022-01-04] MEDS: NS 1,000 ML IV 1,000 ML IV SCH ×2 (16:35→22:05)
[2022-01-04] MEDS: SNACK - Diabetic Appropriate PO SCH (20:09)
[2022-01-04] MEDS: CYMBALTA PO SCH (20:10)
[2022-01-05] MEDS: TORADOL 30 MG VIAL IVP PRN ×2 (04:06→15:39)
[2022-01-05] MEDS: NORCO 7.5/325 MG TAB PO PRN ×2 (05:01→16:50)
[2022-01-05] MEDS: BENTYL CAP 10 MG PO SCH ×3 (05:01→21:25)
[2022-01-05] MEDS: ZOSYN VIAL 3.375 GRAMS 3.375 G in NS 100 ML IV 100 ML IV SCH ×3 (05:01→22:56)
[2022-01-05 06:28] LABS: BASOPHILS % (AUTO) 0.9 % (0.2-1.0); EOSINOPHILS % (AUTO) 0.8 % (0.9-2.9); HEMATOCRIT 24.3 % (42.0-54.0); HEMOGLOBIN 8.4 g/dL (13.5-18.0); LYMPHOCYTES # (AUTO) 0.7 X10^3/uL (1.3-2.9); LYMPHOCYTES % (AUTO) 19.8 % (21.0-51.0); MEAN CORPUSCULAR HEMOGLOBIN 27.1 pg (27.0-34.0); MEAN CORPUSCULAR HGB CONC 34.5 g/dL (33.0-35.0); MEAN CORPUSCULAR VOLUME 78.6 fL (80.0-100.0); MEAN PLATELET VOLUME 7.5 fL (7.4-11.0); MONOCYTES # (AUTO) 0.4 x10^3/uL (0.3-0.8); MONOCYTES % (AUTO) 11.4 % (0.0-13.0); NEUTROPHILS # (AUTO) 2.3 x10^3/uL (2.2-4.8); NEUTROPHILS % (AUTO) 67.1 % (42.0-75.0); WHITE BLOOD COUNT 3.4 X10^3/uL (3.6-10.0)
[2022-01-05 06:38] LABS: CREATININE 0.88 mg/dL (0.70-1.30); VANCOMYCIN,TROUGH 12.3 ug/mL (15-20)
[2022-01-05 06:47] LABS: ALANINE AMINOTRANSFERASE 7 Units/L (12-78); ALBUMIN 1.9 g/dL (3.4-5.0); ALKALINE PHOSPHATASE 113 Units/L (46-116); ASPARTATE AMINO TRANSFERASE 9 Units/L (15-37); BLOOD UREA NITROGEN 22 mg/dL (7-18); CALCIUM 7.4 mg/dL (8.5-10.1); CARBON DIOXIDE 24.9 mmol/L (21-32); CHLORIDE 99 mmol/L (98-107); COR CA(FOR HYPOALB) 9.1 mg/dL (8.5-10.1); COR NA(FOR HYPERGLY) 132 mmol/L (136-145); CREATININE 0.89 mg/dL (0.70-1.30); SODIUM 129 mmol/L (136-145); TOTAL PROTEIN 6.6 g/dL (6.4-8.2); eGFR NON BLACK RACES > 60 (>60)
[2022-01-05] MEDS: VANCOMYCIN IV *PREMIX 750 mg/150 ML BAG 750 MG/150 ML PIGGYBACK IV SCH ×3 (09:16→21:24)
[2022-01-05] MEDS: PLAQUENIL PO SCH ×2 (09:18→21:24)
[2022-01-05] MEDS: PROTONIX INJ 40 MG VIAL IVP SCH ×2 (09:18→21:27)
[2022-01-05] MEDS: NS 1,000 ML IV 1,000 ML IV SCH (13:00)
[2022-01-05] MEDS: ZOFRAN INJ 4 MG VIAL IVP PRN (15:30)
[2022-01-05] MEDS: PERIDEX or PERIOGARD MT SCH ×2 (15:33→21:25)
[2022-01-05] MEDS ORDERED: NICOTINE PATCH TD ONE (15:53)
[2022-01-05] MEDS: NICOTINE PATCH TD SCH (15:55)
[2022-01-05] MEDS: CYMBALTA PO SCH (21:25)
[2022-01-05] MEDS: SNACK - Diabetic Appropriate PO SCH (21:38)
[2022-01-06] MEDS: ZOFRAN INJ 4 MG VIAL IVP PRN ×3 (02:45→23:15)
[2022-01-06] MEDS: TORADOL 30 MG VIAL IVP PRN ×3 (02:45→23:15)
[2022-01-06] MEDS: NS 1,000 ML IV 1,000 ML IV SCH ×2 (02:47→15:25)
[2022-01-06] MEDS: ZOSYN VIAL 3.375 GRAMS 3.375 G in NS 100 ML IV 100 ML IV SCH ×3 (05:40→23:10)
[2022-01-06] MEDS: BENTYL CAP 10 MG PO SCH ×3 (05:40→21:27)
[2022-01-06 05:57] LABS: BASOPHILS % (AUTO) 1.1 % (0.2-1.0); EOSINOPHILS % (AUTO) 0.5 % (0.9-2.9); HEMATOCRIT 26.5 % (42.0-54.0); HEMOGLOBIN 9.1 g/dL (13.5-18.0); LYMPHOCYTES # (AUTO) 0.6 X10^3/uL (1.3-2.9); MEAN CORPUSCULAR HEMOGLOBIN 27.1 pg (27.0-34.0); MEAN CORPUSCULAR HGB CONC 34.4 g/dL (33.0-35.0); MEAN CORPUSCULAR VOLUME 78.6 fL (80.0-100.0); MEAN PLATELET VOLUME 7.5 fL (7.4-11.0); MONOCYTES # (AUTO) 0.4 x10^3/uL (0.3-0.8); MONOCYTES % (AUTO) 9.7 % (0.0-13.0); NEUTROPHILS # (AUTO) 3.1 x10^3/uL (2.2-4.8); NEUTROPHILS % (AUTO) 73.7 % (42.0-75.0); RED BLOOD COUNT 3.37 X10^6/uL (4.7-6.0); WHITE BLOOD COUNT 4.2 X10^3/uL (3.6-10.0)
[2022-01-06 06:16] LABS: ALANINE AMINOTRANSFERASE < 6 Units/L (12-78); ALBUMIN 1.8 g/dL (3.4-5.0); ALKALINE PHOSPHATASE 111 Units/L (46-116); ASPARTATE AMINO TRANSFERASE 9 Units/L (15-37); BLOOD UREA NITROGEN 16 mg/dL (7-18); CALCIUM 7.4 mg/dL (8.5-10.1); CHLORIDE 97 mmol/L (98-107); COR CA(FOR HYPOALB) 9.2 mg/dL (8.5-10.1); COR NA(FOR HYPERGLY) 131 mmol/L (136-145); CREATININE 0.94 mg/dL (0.70-1.30); SODIUM 129 mmol/L (136-145); TOTAL PROTEIN 6.6 g/dL (6.4-8.2); eGFR NON BLACK RACES > 60 (>60)
[2022-01-06] MEDS: NORCO 7.5/325 MG TAB PO PRN ×2 (06:25→15:25)
[2022-01-06 06:30] LABS: VANCOMYCIN,TROUGH 12.8 ug/mL (15-20)
[2022-01-06] MEDS: VANCOMYCIN IV *PREMIX 750 mg/150 ML BAG 750 MG/150 ML PIGGYBACK IV SCH ×3 (06:56→22:00)
[2022-01-06] MEDS: PEPCID 20 MG VIAL 20 MG in NS 50 ML IV 50 ML IV SCH ×3 (08:53→21:28)
[2022-01-06] MEDS: PROTONIX INJ 40 MG VIAL IVP SCH ×2 (08:54→21:29)
[2022-01-06] MEDS: PLAQUENIL PO SCH ×2 (08:54→21:27)
[2022-01-06] MEDS: NICOTINE PATCH TD SCH (08:55)
[2022-01-06] MEDS: PERIDEX or PERIOGARD MT SCH ×2 (09:17→21:27)
--- NOTE | 2022-01-06 18:16 | PCM.PROG ---
Progress Note - Progress Note for Day of Date of Exam: 01/06/22 - Subjective Subjective: IS A 46 YEAR OLD PATIENT OF . HE WAS ADMITTED FOR TREATMENT OF FACIAL CELLULITIS AND ABSCESS. PATIENT HAS AND ABSCESS WITH SWELLING AND REDNESS TO THE RIGHT SIDE MANDIBULAR AREA. HE HAS FAILED TWO ROUNDS OF ORAL PENICILLIN. HE CONTINUES WITH PAIN TO THE JAW, BUT REPORTS SLIGHT IMPROVEMENT IN SYMPTOMS TODAY. HIS PMH INCLUDES: TYPE I DM, RA, GERD, YUNIEL, MDD, NEUROPATHY. HIS VITALS THIS MORNING ARE: 97.7-67-18-100%-98/57. LABS WERE OBTAINED. WBC 5.1, RBC 3.41, HGB 9.2, HCT 26.9, SODIUM 132, POTASSIUM 3.6, CHLORIDE 99, BUN 23, CREATININE 0.83, GLUCOSE 50, CALCIUM 7.3, AST 9, ALT <6, ALK PHOS 100, TOTAL PROTEIN 6.8, ALBUMIN 2.0. HE IS CURRENTLY RECEIVING NORMAL SALINE AT 75 ML/HR, ZOSYN 3.375G IV TID, VANCOMYCIN 750MG IV Q8H, PROTONIX 40MG IV BID, TORADOL 30MG IV Q6H PRN, ZOFRAN 4MG IV Q8H, OTBS ACHS, HUMULIN R SLIDING SCALE, THE POTASSIUM AND MAGNESIUM PROTOCOLS, NORCO 7.5/325MG PO Q6H PRN, AND HIS HOME MEDICATIONS WERE RESUMED. OTHERWISE, WE WILL CONTINUE WITH CURRENT PLAN OF CARE. WE PLAN TO FOLLOW-UP WITH AM LABS AND CONTINUE TO MONITOR. TIME SPENT ON CLINICAL ASSESSMENT, REVIEWING LABS AND IMAGING, DECISION MAKING, AND DOCUMENTATION GREATER THAN 45 MINUTES. - Past Medical Family Social History Past Med/Fam/Surg Hx: No changes since H&P Allergies: Allergies No Known Drug Allergies Allergy (Verified 10/18/21 13:56) - Review of Systems ROS: No change since H&P - Vital Signs and I&O's Vital Signs: Temperature 99.0 F Pulse Rate [Right Radial] 88 Respiratory Rate 18 Blood Pressure [Right Arm] 123/70 Blood Pressure [Left Arm] 145/99 Blood Pressure 122/80 O2 Sat by Pulse Oximetry 99 Intake and Output: Intake & Output 01/04/22 01/05/22 01/06/22 01/07/22 11:59 11:59 11:59 11:59 Intake Total 3019 / 3019 3593 / 3593 2637 / 2637 480 / 480 Output Total 1325 / 1325 900 / 900 670 / 670 300 / 300 Balance 1694 / 1694 2693 / 2693 1966 180 / 180 - Physical Exam Oriented: Normal Eyes: Normal Ear: Right (TENDERNESS) Nose: Normal Throat: Normal Respiratory: Normal, Diminished Cardiovascular: Normal : Normal Auscultation: Bowel Sounds: Normal Tenderness: Epigastric Skin: Decreased Turgur Musculoskeletal: Right, Back:Thoracic, Back:Lumbar, Swelling (RIGHT JAW), Tender Psychiatric: Anxiety, Depression Affect: Anxious Speech Pattern: Clear, Appropriate - Laboratory and Diagnostics Result Diagrams: 01/06/22 05:40 01/06/22 05:40 Labs: 01/02/22 14:05 Blood Blood Culture - Preliminary 01/02/22 14:00 Blood Blood Culture - Preliminary Laboratory WBC 4.2 X10^3/uL (3.6-10.0) 01/06/22 05:40 RBC 3.37 X10^6/uL (4.7-6.0) L 01/06/22 05:40 Hgb 9.1 g/dL (13.5-18.0) L 01/06/22 05:40 Hct 26.5 % (42.0-54.0) L 01/06/22 05:40 MCV 78.6 fL (80.0-100.0) L 01/06/22 05:40 MCH 27.1 pg (27.0-34.0) 01/06/22 05:40 MCHC 34.4 g/dL (33.0-35.0) 01/06/22 05:40 RDW 20.0 % (11.6-16.5) H 01/06/22 05:40 Plt Count 250 X10^3/uL (150.0-450.0) 01/06/22 05:40 Plt Count Comment Adequate (ADEQUATE) 01/03/22 05:55 MPV 7.5 fL (7.4-11.0) 01/06/22 05:40 Neut % (Auto) 73.7 % (42.0-75.0) 01/06/22 05:40 Lymph % (Auto) 15.0 % (21.0-51.0) L 01/06/22 05:40 [place] % (Auto) 9.7 % (0.0-13.0) 01/06/22 05:40 Eos % (Auto) 0.5 % (0.9-2.9) L 01/06/22 05:40 Baso % (Auto) 1.1 % (0.2-1.0) H 01/06/22 05:40 Neut # (Auto) 3.1 x10^3/uL (2.2-4.8) 01/06/22 05:40 Lymph # (Auto) 0.6 X10^3/uL (1.3-2.9) L 01/06/22 05:40 [place] # (Auto) 0.4 x10^3/uL (0.3-0.8) 01/06/22 05:40 Eos # (Auto) 0.0 x10^3/uL (0.0-0.2) 01/06/22 05:40 Baso # (Auto) 0.0 X10^3/uL (0.0-0.1) 01/06/22 05:40 Absolute Nucleated RBC 0.2 /100WBC 01/06/22 05:40 Plt Morphology Comment Normal (NORMAL) 01/03/22 05:55 RBC Morphology Abnormal (NORMAL) 01/03/22 05:55 Anisocytosis 1+ A 01/03/22 05:55 Sodium 129 mmol/L (136-145) L 01/06/22 05:40 Corrected Sodium 131 mmol/L (136-145) L 01/06/22 05:40 Potassium 3.7 mmol/L (3.5-5.1) 01/06/22 05:40 Chloride 97 mmol/L (98-107) L 01/06/22 05:40 Carbon Dioxide 23.0 mmol/L (21-32) 01/06/22 05:40 BUN 16 mg/dL (7-18) 01/06/22 05:40 Creatinine 0.94 mg/dL (0.70-1.30) 01/06/22 05:40 Est GFR (MDRD) Af Amer > 60 (>60) 01/06/22 05:40 Est GFR (MDRD) Non-Af > 60 (>60) 01/06/22 05:40 Glucose 186 mg/dL (65-99) H 01/06/22 05:40 POC Glucose (mg/dL) 120 mg/dL (65-99) H 01/06/22 17:21 Calcium 7.4 mg/dL (8.5-10.1) L 01/06/22 05:40 Corrected Calcium 9.2 mg/dL (8.5-10.1) 01/06/22 05:40 Magnesium 2.4 mg/dL (1.7-2.9) 01/03/22 07:00 Total Bilirubin 0.40 mg/dL (0.2-1.0) 01/06/22 05:40 AST 9 Units/L (15-37) L 01/06/22 05:40 ALT < 6 Units/L (12-78) L 01/06/22 05:40 Alkaline Phosphatase 111 Units/L (46-116) 01/06/22 05:40 Total Protein 6.6 g/dL (6.4-8.2) 01/06/22 05:40 Albumin 1.8 g/dL (3.4-5.0) L 01/06/22 05:40 Globulin 4.8 g/dL (2.5-4.5) H 01/06/22 05:40 Albumin/Globulin Ratio 0.4 Ratio (1.1-2.1) L 01/06/22 05:40 Specimen Type Clean catch urine 01/03/22 05:53 Urine Color Yellow (YELLOW) 01/03/22 05:53 Urine Appearance Clear (CLEAR) 01/03/22 05:53 Urine pH 5.0 (5.0 - 8.0) 01/03/22 05:53 Ur Specific [place] 1.025 (1.000-1.030) 01/03/22 05:53 Urine Protein 2+ (NEGATIVE) 01/03/22 05:53 Urine Glucose (UA) 4+ (NEGATIVE) 01/03/22 05:53 Urine Ketones Negative (NEGATIVE) 01/03/22 05:53 Urine Blood 1+ (NEGATIVE) 01/03/22 05:53 Urine Nitrite Negative (NEGATIVE) 01/03/22 05:53 Urine Bilirubin Negative (NEGATIVE) 01/03/22 05:53 Urine Acetone Negative (NEGATIVE) 01/03/22 05:53 Urine Urobilinogen Normal (NORMAL) 01/03/22 05:53 Ur Leukocyte Esterase Negative (NEGATIVE) 01/03/22 05:53 Urine RBC 0-2 /HPF (0-3) 01/03/22 05:53 Urine WBC None seen /HPF (0-5) 01/03/22 05:53 Ur Squamous Epith Cells Few /HPF (NEGATIVE) 01/03/22 05:53 Urine Bacteria Negative /HPF (NEGATIVE) 01/03/22 05:53 Urine Mucus Rare /HPF (NEGATIVE) 01/03/22 05:53 Ur Culture Indicated? No/not indicated 01/03/22 05:53 Vancomycin Trough 12.8 ug/mL (15-20) L 01/06/22 05:40 Acetone, Semi-Quant Negative (NEGATIVE) 01/02/22 14:00 - Plan (1) Abscess of jaw, right Status: Acute Plan: CONTINUE BLOOD SUGAR CONTROL AND ENCOURAGE ORAL HYDRATION AND USE OF ORAL RINSE. ADD PEPCID IV DUE TO NAUSEA/HEART BURN AND PRN ZOFRAN. NORMAL SALINE AT 125 ML/HR, ZOSYN 3.375G IV TID, VANCOMYCIN, OTBS ACHS, HUMULIN R SLIDING SCALE, THE POTASSIUM AND MAGNESIUM PROTOCOLS, NORCO 7.5/325MG PO Q6H PRN (2) Diabetes Status: Chronic Qualifiers: Diabetes mellitus type: type 1 Diabetes mellitus complication status: with hyperglycemia Qualified Code(s): E10.65 - Type 1 diabetes mellitus with hyperglycemia (3) Gastritis Status: Acute (4) Vomiting and diarrhea Status: Acute (5) Acute dehydration Status: Acute (6) Rheumatoid aortitis Status: Acute
[2022-01-06] MEDS: CYMBALTA PO SCH (21:27)
[2022-01-06] MEDS: K-DUR TAB 20 MEQ PO PRN (21:27)
[2022-01-06] MEDS: SNACK - Diabetic Appropriate PO SCH (22:08)
[2022-01-07] MEDS: BENTYL CAP 10 MG PO SCH ×3 (05:57→21:11)
[2022-01-07] MEDS: ZOSYN VIAL 3.375 GRAMS 3.375 G in NS 100 ML IV 100 ML IV SCH ×3 (05:58→21:14)
[2022-01-07 06:44] LABS: BASOPHILS % (AUTO) 0.9 % (0.2-1.0); EOSINOPHILS % (AUTO) 0.4 % (0.9-2.9); HEMATOCRIT 26.3 % (42.0-54.0); LYMPHOCYTES # (AUTO) 0.7 X10^3/uL (1.3-2.9); LYMPHOCYTES % (AUTO) 18.3 % (21.0-51.0); MEAN CORPUSCULAR HEMOGLOBIN 26.9 pg (27.0-34.0); MEAN CORPUSCULAR HGB CONC 34.3 g/dL (33.0-35.0); MEAN CORPUSCULAR VOLUME 78.6 fL (80.0-100.0); MEAN PLATELET VOLUME 7.9 fL (7.4-11.0); MONOCYTES # (AUTO) 0.5 x10^3/uL (0.3-0.8); MONOCYTES % (AUTO) 12.1 % (0.0-13.0); NEUTROPHILS # (AUTO) 2.6 x10^3/uL (2.2-4.8); NEUTROPHILS % (AUTO) 68.3 % (42.0-75.0); RED BLOOD COUNT 3.35 X10^6/uL (4.7-6.0); RED CELL DISTRIBUTION WIDTH 20.2 % (11.6-16.5); WHITE BLOOD COUNT 3.8 X10^3/uL (3.6-10.0)
[2022-01-07 06:48] LABS: ALANINE AMINOTRANSFERASE < 6 Units/L (12-78); ALBUMIN 1.7 g/dL (3.4-5.0); ALKALINE PHOSPHATASE 108 Units/L (46-116); ASPARTATE AMINO TRANSFERASE 12 Units/L (15-37); BLOOD UREA NITROGEN 17 mg/dL (7-18); CALCIUM 7.6 mg/dL (8.5-10.1); CARBON DIOXIDE 21.7 mmol/L (21-32); CHLORIDE 98 mmol/L (98-107); COR CA(FOR HYPOALB) 9.4 mg/dL (8.5-10.1); COR NA(FOR HYPERGLY) 131 mmol/L (136-145); SODIUM 130 mmol/L (136-145); TOTAL PROTEIN 6.4 g/dL (6.4-8.2); eGFR NON BLACK RACES > 60 (>60)
[2022-01-07 06:51] LABS: VANCOMYCIN,TROUGH 12.2 ug/mL (15-20)
[2022-01-07] MEDS: VANCOMYCIN IV *PREMIX 750 mg/150 ML BAG 750 MG/150 ML PIGGYBACK IV SCH ×3 (06:58→21:14)
[2022-01-07] MEDS: ZOFRAN INJ 4 MG VIAL IVP PRN ×2 (06:58→17:10)
[2022-01-07 07:23] LABS: BAND NEUTROPHILS % 10 % (0-10); METAMYELOCYTES % 2; MYELOCYTES % 1; PLATELET MORPHOLOGY COMMENT NORMAL (NORMAL)
[2022-01-07 07:24] LABS: ANISOCYTOSIS 1+; TARGET CELLS SLIGHT
[2022-01-07] MEDS: PEPCID 20 MG VIAL 20 MG in NS 50 ML IV 50 ML IV SCH ×2 (09:10→21:14)
[2022-01-07] MEDS: PROTONIX INJ 40 MG VIAL IVP SCH ×2 (09:10→21:14)
[2022-01-07] MEDS: NICOTINE PATCH TD SCH (09:10)
[2022-01-07] MEDS: PLAQUENIL PO SCH ×2 (09:10→21:11)
[2022-01-07] MEDS: PERIDEX or PERIOGARD MT SCH ×2 (09:16→21:00)
[2022-01-07] MEDS: NS 1,000 ML IV 1,000 ML IV SCH ×2 (10:29→20:00)
[2022-01-07] MEDS ORDERED: REGLAN INJ 10 MG VIAL IVP PRN (12:49)
[2022-01-07] MEDS: DONNATAL TAB PO PRN (13:17)
[2022-01-07] MEDS: NORCO 7.5/325 MG TAB PO PRN ×2 (17:12→23:54)
[2022-01-07] MEDS: SNACK - Diabetic Appropriate PO SCH (20:00)
[2022-01-07] MEDS: CYMBALTA PO SCH (21:12)
[2022-01-08] MEDS: VANCOMYCIN IV *PREMIX 750 mg/150 ML BAG 750 MG/150 ML PIGGYBACK IV SCH (05:22)
[2022-01-08] MEDS: ZOSYN VIAL 3.375 GRAMS 3.375 G in NS 100 ML IV 100 ML IV SCH ×3 (05:22→21:01)
[2022-01-08] MEDS: BENTYL CAP 10 MG PO SCH ×2 (05:22→13:28)
[2022-01-08] MEDS: NORCO 7.5/325 MG TAB PO PRN ×3 (06:00→20:01)
[2022-01-08 06:33] LABS: BASOPHILS % (AUTO) 0.6 % (0.2-1.0); EOSINOPHILS % (AUTO) 0.1 % (0.9-2.9); HEMATOCRIT 24.6 % (42.0-54.0); HEMOGLOBIN 8.6 g/dL (13.5-18.0); LYMPHOCYTES # (AUTO) 0.7 X10^3/uL (1.3-2.9); LYMPHOCYTES % (AUTO) 16.5 % (21.0-51.0); MEAN CORPUSCULAR HEMOGLOBIN 26.9 pg (27.0-34.0); MEAN CORPUSCULAR HGB CONC 34.9 g/dL (33.0-35.0); MEAN CORPUSCULAR VOLUME 77.2 fL (80.0-100.0); MEAN PLATELET VOLUME 7.6 fL (7.4-11.0); MONOCYTES # (AUTO) 0.5 x10^3/uL (0.3-0.8); MONOCYTES % (AUTO) 11.2 % (0.0-13.0); NEUTROPHILS % (AUTO) 71.6 % (42.0-75.0); RED BLOOD COUNT 3.19 X10^6/uL (4.7-6.0); RED CELL DISTRIBUTION WIDTH 20.4 % (11.6-16.5); WHITE BLOOD COUNT 4.2 X10^3/uL (3.6-10.0)
[2022-01-08 06:41] LABS: ALANINE AMINOTRANSFERASE 7 Units/L (12-78); ALBUMIN 1.9 g/dL (3.4-5.0); ALKALINE PHOSPHATASE 111 Units/L (46-116); ASPARTATE AMINO TRANSFERASE 12 Units/L (15-37); BLOOD UREA NITROGEN 10 mg/dL (7-18); CALCIUM 7.5 mg/dL (8.5-10.1); CARBON DIOXIDE 23.3 mmol/L (21-32); CHLORIDE 94 mmol/L (98-107); COR CA(FOR HYPOALB) 9.2 mg/dL (8.5-10.1); COR NA(FOR HYPERGLY) 129 mmol/L (136-145); CREATININE 0.87 mg/dL (0.70-1.30); SODIUM 126 mmol/L (136-145); TOTAL PROTEIN 6.8 g/dL (6.4-8.2); eGFR NON BLACK RACES > 60 (>60)
[2022-01-08 07:17] LABS: BAND NEUTROPHILS % 8 % (0-10)
[2022-01-08 07:18] LABS: ANISOCYTOSIS 1+; HYPOCHROMASIA SLIGHT; METAMYELOCYTES % 2; PLATELET MORPHOLOGY COMMENT NORMAL (NORMAL); TARGET CELLS 1+
[2022-01-08] MEDS ORDERED: TORADOL 15 MG VIAL IVP NR (08:36)
[2022-01-08] MEDS: NICOTINE PATCH TD SCH (08:38)
[2022-01-08] MEDS: DONNATAL TAB PO PRN (08:39)
[2022-01-08] MEDS: PROTONIX INJ 40 MG VIAL IVP SCH ×2 (08:40→21:01)
[2022-01-08] MEDS: PEPCID 20 MG VIAL 20 MG in NS 50 ML IV 50 ML IV SCH ×2 (08:40→21:00)
[2022-01-08] MEDS: PERIDEX or PERIOGARD MT SCH ×2 (08:41→20:57)
[2022-01-08] MEDS: PLAQUENIL PO SCH ×2 (08:42→21:00)
[2022-01-08] MEDS: THERMOTABS PO SCH ×2 (09:40→20:57)
--- NOTE | 2022-01-08 13:29 | RAD ---
HISTORYABD PAIN, N/V Relevant Clinical [id number]/07/2022 .br.br.br.br unremarkable. There are abnormal central dilated small-bowel loops, there is stool in the rectum with a armando however there is decrease air in the colon findings are suspicious for early SBO. No abnormal intra-abdominal calcifications. No free air. Few air-fluid levels in the left upper quadrantIMPRESSIONCentral dilated small-bowel loops with decrease air throughout the colon, suspicious for early or partial SBOElectronically signed by: Fay Zendejas (Jan 08, 2022 13:28:03)
[2022-01-08] MEDS: NS 1,000 ML IV 1,000 ML IV SCH ×2 (13:32→20:42)
[2022-01-08 13:47] LABS: CREATININE 0.73 mg/dL (0.70-1.30); VANCOMYCIN,TROUGH 9.1 ug/mL (15-20)
[2022-01-08] MEDS ORDERED: TORADOL 15 MG VIAL IVP PRN (17:57)
[2022-01-08] MEDS: REGLAN INJ 10 MG VIAL IVP SCH (18:23)
--- NOTE | 2022-01-08 18:27 | PCM.PROG ---
Progress Note - Progress Note for Day of Date of Exam: 01/08/22 - Subjective Subjective: IS A 46 YEAR OLD PATIENT OF . HE WAS ADMITTED FOR TREATMENT OF FACIAL CELLULITIS AND ABSCESS. PATIENT HAS AND ABSCESS WITH SWELLING AND REDNESS TO THE RIGHT SIDE MANDIBULAR AREA. HE HAS FAILED TWO ROUNDS OF ORAL PENICILLIN. HE CONTINUES WITH PAIN TO THE JAW, BUT REPORTS SLIGHT IMPROVEMENT SINCE ABSCESS HAS BEEN DRAINING. PT CO INCREASED NAUSEA WITH VOMITING. PT CO EPIGASTRIC PAIN AND HAS KNOWN GASTRITIS AND DIABETIC GASTROPARESIS. PT IS CURRENLY ON IV PROTONIX AND REGLAN WITH ZOFRAN FOR NAUSEA CONTROL. PT NA 126 THIS AM, NS AT 125CC/HR. PT ENCOURAGED ORAL ELECTROLYTE REPLACEMENT. WE PLAN TO FOLLOW-UP WITH AM LABS AND CONTINUE TO MONITOR, PLAN TO DISCHARGE HOME TOMORROW. - Past Medical Family Social History Past Med/Fam/Surg Hx: No changes since H&P Allergies: Allergies No Known Drug Allergies Allergy (Verified 10/18/21 13:56) - Review of Systems ROS: No change since H&P - Vital Signs and I&O's Vital Signs: Temperature 98.7 F Pulse Rate [Right Radial] 69 Respiratory Rate 20 Blood Pressure [Right Arm] 149/79 Blood Pressure [Left Arm] 145/99 Blood Pressure 122/80 O2 Sat by Pulse Oximetry 100 Intake and Output: Intake & Output 01/06/22 01/07/22 01/08/22 01/09/22 11:59 11:59 11:59 11:59 Intake Total 2637 / 2637 2283 / 2283 3390 / 3390 480 / 480 Output Total 670 / 670 880 / 880 1999 / 1999 400 / 400 Balance 1966 / 1966 1403 / 1403 1390 / 1390 80 / 80 - Physical Exam Oriented: Normal Eyes: Normal Ear: Right (TENDERNESS) Nose: Normal Throat: Normal Respiratory: Normal, Diminished Cardiovascular: Normal : Normal Auscultation: Bowel Sounds: Normal Tenderness: Epigastric Skin: Decreased Turgur Musculoskeletal: Right, Back:Thoracic, Back:Lumbar, Swelling (RIGHT JAW), Tender Psychiatric: Anxiety, Depression Affect: Anxious Speech Pattern: Clear, Appropriate - Laboratory and Diagnostics Result Diagrams: 01/08/22 05:18 01/08/22 13:09 Labs: 01/02/22 14:05 Blood Blood Culture - Final 01/02/22 14:00 Blood Blood Culture - Final Laboratory WBC 4.2 X10^3/uL (3.6-10.0) 01/08/22 05:18 RBC 3.19 X10^6/uL (4.7-6.0) L 01/08/22 05:18 Hgb 8.6 g/dL (13.5-18.0) L 01/08/22 05:18 Hct 24.6 % (42.0-54.0) L 01/08/22 05:18 MCV 77.2 fL (80.0-100.0) L 01/08/22 05:18 MCH 26.9 pg (27.0-34.0) L 01/08/22 05:18 MCHC 34.9 g/dL (33.0-35.0) 01/08/22 05:18 RDW 20.4 % (11.6-16.5) H 01/08/22 05:18 Plt Count 218 X10^3/uL (150.0-450.0) 01/08/22 05:18 Plt Count Comment Adequate (ADEQUATE) 01/08/22 05:18 MPV 7.6 fL (7.4-11.0) 01/08/22 05:18 Neut % (Auto) 71.6 % (42.0-75.0) 01/08/22 05:18 Lymph % (Auto) 16.5 % (21.0-51.0) L 01/08/22 05:18 [place] % (Auto) 11.2 % (0.0-13.0) 01/08/22 05:18 Eos % (Auto) 0.1 % (0.9-2.9) L 01/08/22 05:18 Baso % (Auto) 0.6 % (0.2-1.0) 01/08/22 05:18 Neut # (Auto) 3.0 x10^3/uL (2.2-4.8) 01/08/22 05:18 Lymph # (Auto) 0.7 X10^3/uL (1.3-2.9) L 01/08/22 05:18 [place] # (Auto) 0.5 x10^3/uL (0.3-0.8) 01/08/22 05:18 Eos # (Auto) 0.0 x10^3/uL (0.0-0.2) 01/08/22 05:18 Baso # (Auto) 0.0 X10^3/uL (0.0-0.1) 01/08/22 05:18 Absolute Nucleated RBC 0.3 /100WBC 01/08/22 05:18 Total Counted 100 01/08/22 05:18 Neutrophils % (Manual) 57 % (39-76) 01/08/22 05:18 Band Neutrophils % 8 % (0-10) 01/08/22 05:18 Lymphocytes % (Manual) 20 % (13-43) 01/08/22 05:18 Monocytes % (Manual) 13 % (4-9) H 01/08/22 05:18 Eosinophils % (Manual) 1 % (0-6) 01/07/22 05:40 Metamyelocytes % 2 01/08/22 05:18 Myelocytes % 1 01/07/22 05:40 Plt Morphology Comment Normal (NORMAL) 01/08/22 05:18 RBC Morphology Abnormal (NORMAL) 01/08/22 05:18 Hypochromasia Slight A 01/08/22 05:18 Anisocytosis 1+ A 01/08/22 05:18 Target Cells 1+ A 01/08/22 05:18 Sodium 126 mmol/L (136-145) L 01/08/22 05:18 Corrected Sodium 129 mmol/L (136-145) L 01/08/22 05:18 Potassium 3.7 mmol/L (3.5-5.1) 01/08/22 05:18 Chloride 94 mmol/L (98-107) L 01/08/22 05:18 Carbon Dioxide 23.3 mmol/L (21-32) 01/08/22 05:18 BUN 10 mg/dL (7-18) 01/08/22 05:18 Creatinine 0.73 mg/dL (0.70-1.30) 01/08/22 13:09 Est GFR (MDRD) Af Amer > 60 (>60) 01/08/22 05:18 Est GFR (MDRD) Non-Af > 60 (>60) 01/08/22 05:18 Glucose 233 mg/dL (65-99) H 01/08/22 05:18 POC Glucose (mg/dL) 206 mg/dL (65-99) H 01/08/22 17:32 Calcium 7.5 mg/dL (8.5-10.1) L 01/08/22 05:18 Corrected Calcium 9.2 mg/dL (8.5-10.1) 01/08/22 05:18 Magnesium 2.4 mg/dL (1.7-2.9) 01/03/22 07:00 Total Bilirubin 0.50 mg/dL (0.2-1.0) 01/08/22 05:18 AST 12 Units/L (15-37) L 01/08/22 05:18 ALT 7 Units/L (12-78) L 01/08/22 05:18 Alkaline Phosphatase 111 Units/L (46-116) 01/08/22 05:18 Total Protein 6.8 g/dL (6.4-8.2) 01/08/22 05:18 Albumin 1.9 g/dL (3.4-5.0) L 01/08/22 05:18 Globulin 4.9 g/dL (2.5-4.5) H 01/08/22 05:18 Albumin/Globulin Ratio 0.4 Ratio (1.1-2.1) L 01/08/22 05:18 Specimen Type Clean catch urine 01/03/22 05:53 Urine Color Yellow (YELLOW) 01/03/22 05:53 Urine Appearance Clear (CLEAR) 01/03/22 05:53 Urine pH 5.0 (5.0 - 8.0) 01/03/22 05:53 Ur Specific [place] 1.025 (1.000-1.030) 01/03/22 05:53 Urine Protein 2+ (NEGATIVE) 01/03/22 05:53 Urine Glucose (UA) 4+ (NEGATIVE) 01/03/22 05:53 Urine Ketones Negative (NEGATIVE) 01/03/22 05:53 Urine Blood 1+ (NEGATIVE) 01/03/22 05:53 Urine Nitrite Negative (NEGATIVE) 01/03/22 05:53 Urine Bilirubin Negative (NEGATIVE) 01/03/22 05:53 Urine Acetone Negative (NEGATIVE) 01/03/22 05:53 Urine Urobilinogen Normal (NORMAL) 01/03/22 05:53 Ur Leukocyte Esterase Negative (NEGATIVE) 01/03/22 05:53 Urine RBC 0-2 /HPF (0-3) 01/03/22 05:53 Urine WBC None seen /HPF (0-5) 01/03/22 05:53 Ur Squamous Epith Cells Few /HPF (NEGATIVE) 01/03/22 05:53 Urine Bacteria Negative /HPF (NEGATIVE) 01/03/22 05:53 Urine Mucus Rare /HPF (NEGATIVE) 01/03/22 05:53 Ur Culture Indicated? No/not indicated 01/03/22 05:53 Vancomycin Trough 9.1 ug/mL (15-20) L 01/08/22 13:09 Acetone, Semi-Quant Negative (NEGATIVE) 01/02/22 14:00 - Plan (1) Abscess of jaw, right Status: Acute Plan: CONTINUE BLOOD SUGAR CONTROL AND ENCOURAGE ORAL HYDRATION AND USE OF ORAL RINSE. ADD PEPCID IV DUE TO NAUSEA/HEART BURN AND PRN ZOFRAN. NORMAL SALINE AT 125 ML/HR, ZOSYN 3.375G IV TID, OTBS ACHS, HUMULIN R SLIDING SCALE, THE POTASSIUM AND MAGNESIUM PROTOCOLS, NORCO 7.5/325MG PO Q6H PRN (2) Diabetes Status: Chronic Qualifiers: Diabetes mellitus type: type 1 Diabetes mellitus complication status: with hyperglycemia Qualified Code(s): E10.65 - Type 1 diabetes mellitus with hyperglycemia (3) Gastritis Status: Acute (4) Vomiting and diarrhea Status: Acute (5) Acute dehydration Status: Acute (6) Rheumatoid aortitis Status: Acute
[2022-01-08] MEDS: SNACK - Diabetic Appropriate PO SCH (20:58)
[2022-01-08] MEDS: CYMBALTA PO SCH (21:00)
[2022-01-09] MEDS ORDERED: COLACE CAP 100 MG PO PRN (00:16)
[2022-01-09] MEDS ORDERED: MILK OF MAGNESIA PO PRN (00:16)
[2022-01-09] MEDS: NS 1,000 ML IV 1,000 ML IV SCH ×2 (00:29→05:17)
[2022-01-09] MEDS: REGLAN INJ 10 MG VIAL IVP SCH ×2 (00:32→05:13)
[2022-01-09] MEDS: ZOSYN VIAL 3.375 GRAMS 3.375 G in NS 100 ML IV 100 ML IV SCH (05:13)
[2022-01-09 06:53] LABS: ALANINE AMINOTRANSFERASE 8 Units/L (12-78); ALBUMIN 1.9 g/dL (3.4-5.0); ALKALINE PHOSPHATASE 354 Units/L (46-116); ASPARTATE AMINO TRANSFERASE 43 Units/L (15-37); BLOOD UREA NITROGEN 9 mg/dL (7-18); CALCIUM 7.6 mg/dL (8.5-10.1); CARBON DIOXIDE 16.4 mmol/L (21-32); CHLORIDE 96 mmol/L (98-107); COR CA(FOR HYPOALB) 9.3 mg/dL (8.5-10.1); COR NA(FOR HYPERGLY) 133 mmol/L (136-145); CREATININE 0.84 mg/dL (0.70-1.30); SODIUM 129 mmol/L (136-145); TOTAL PROTEIN 6.8 g/dL (6.4-8.2); eGFR NON BLACK RACES > 60 (>60)
[2022-01-09 07:02] LABS: BASOPHILS % (AUTO) 0.6 % (0.2-1.0); EOSINOPHILS % (AUTO) 0.1 % (0.9-2.9); HEMATOCRIT 24.9 % (42.0-54.0); HEMOGLOBIN 8.5 g/dL (13.5-18.0); LYMPHOCYTES # (AUTO) 0.8 X10^3/uL (1.3-2.9); LYMPHOCYTES % (AUTO) 15.9 % (21.0-51.0); MEAN CORPUSCULAR HEMOGLOBIN 26.3 pg (27.0-34.0); MEAN CORPUSCULAR VOLUME 77.3 fL (80.0-100.0); MEAN PLATELET VOLUME 7.7 fL (7.4-11.0); MONOCYTES # (AUTO) 0.4 x10^3/uL (0.3-0.8); MONOCYTES % (AUTO) 7.5 % (0.0-13.0); NEUTROPHILS # (AUTO) 3.8 x10^3/uL (2.2-4.8); NEUTROPHILS % (AUTO) 75.9 % (42.0-75.0); RED BLOOD COUNT 3.22 X10^6/uL (4.7-6.0); RED CELL DISTRIBUTION WIDTH 20.6 % (11.6-16.5)
--- NOTE | 2022-01-09 07:43 | RAD ---
HISTORYNausea, [id number]/20/22 .br.br.br identified. Gas is present in normal appearing small bowel and throughout the colon. The pattern is nonobstructive and nonspecific. No abnormal masses or abnormal calcifications are identified. Regional skeleton is intact.IMPRESSIONNonspecific, nonobstructive bowel gas pattern with resolution of the previously described dilated small bowel loops.Electronically signed by: ROYA MUNOZ (Jan 09, 2022 07:42:10)
[2022-01-09 07:45] LABS: BAND NEUTROPHILS % 21 % (0-10)
[2022-01-09 07:46] LABS: METAMYELOCYTES % 3
[2022-01-09 07:47] LABS: ANISOCYTOSIS 1+; HYPOCHROMASIA 1+; MICROCYTOSIS SLIGHT; PLATELET MORPHOLOGY COMMENT NORMAL (NORMAL); TARGET CELLS 1+
[2022-01-09] MEDS: NORCO 7.5/325 MG TAB PO PRN (09:13)
[2022-01-09] MEDS: PROTONIX INJ 40 MG VIAL IVP SCH (09:14)
[2022-01-09] MEDS: PLAQUENIL PO SCH (09:19)
[2022-01-09] MEDS: PEPCID 20 MG VIAL 20 MG in NS 50 ML IV 50 ML IV SCH (09:19)
[2022-01-09] MEDS: THERMOTABS PO SCH (09:20)
[2022-01-09] MEDS: PERIDEX or PERIOGARD MT SCH (09:21)
[2022-01-09] MEDS: NICOTINE PATCH TD SCH (09:21)
[2022-01-09 11:17] VITALS: BP 164/94
== END 2022-01-09 11:30 | disposition home or self-care (01) | DRG 603 ==
LOC: ICU 12:53 → MED/SURG 13:04
PROVIDERS: ADMIT Internal Medicine; ATTEND Internal Medicine
DX: F33.0 Major depressive disorder, recurrent, mild; F41.1 Generalized anxiety disorder; K08.9 Disorder of teeth and supporting structures, unspecified; K29.60 Other gastritis without bleeding; R59.0 Localized enlarged lymph nodes; E10.65 Type 1 diabetes mellitus with hyperglycemia; E10.43 Type 1 diabetes mellitus with diabetic autonomic (poly)neuropathy; K02.9 Dental caries, unspecified; E86.0 Dehydration; M06.9 Rheumatoid arthritis, unspecified; Z87.442 Personal history of urinary calculi; K21.9 Gastro-esophageal reflux disease without esophagitis; R10.84 Generalized abdominal pain; L02.818 Cutaneous abscess of other sites; G62.9 Polyneuropathy, unspecified; K31.84 Gastroparesis; L03.211 Cellulitis of face; R62.7 Adult failure to thrive; E87.1 Hypo-osmolality and hyponatremia